=== PATIENT | male | born 1975 | race Caucasian/White ===

== ENCOUNTER 2016-06-27 14:08 | Day surgery (SDC) | payer MEDICAID ==
[2016-06-27] VITALS (15 sets, daily range): BP systolic 146–173; BP diastolic 72–107; PULSE 77–94; RESP 12–18; TEMP 97.8–99; O2SAT 94–100; Ht 188 cm; Wt 97.0 kg
[~2016-06-27] VITALS: Ht 188 cm; Wt 97.0 kg
[~2016-06-27 14:08] MED LIST: ACET-2723 PO; AMLO5TAB2 PO; DIPH25TA23 PO
--- OUTSIDE RECORDS SUMMARY | 2016-06-27 14:12 | XMS REPORT | Referral Summary ---
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 Role Phone Ivania Barber Primary Care Physician [phone] Encounter [facility] [id number] Date(s): 05/28/15 - 05/28/15 [facility] [address] [place], [place] [address] Discharge Diagnosis: Fixed drug eruption Discharge Diagnosis: Zheng's nevus of back Discharge Diagnosis: Nevus Discharge Diagnosis: History of squamous cell carcinoma of skin Discharge Diagnosis: Hypertrophic scar of skin Discharge Disposition: 01-Home or Self Care Attending Physician: Mark Jonas MD Admitting Physician: Mark Jonas MD Referring Physician: Gio Payne MD Vital Signs No data available for this section Problem List Condition Effective Dates Status Health Status Informant Abdominal Active discomfort(Confirmed ) Acute Active bronchitis(Confirmed ) Acute frontal Active sinusitis(Confirmed) Acute Active tonsillitis(Confirme d) Allergic rhinitis, Active seasonal(Confirmed) Foot pain(Confirmed) Active Hypertension(Confirm Active ed) Chronic knee Active pain(Confirmed) Syncope(Confirmed) Resolved Tobacco Active use(Confirmed) Abnormal WBC Active count(Confirmed) Allergies, Adverse Reactions, Alerts Substance Reaction Severity Status Bactrim Active sulfa drugs Active Medications albuterol 90 mcg/inh inhalation powder 2 puffs, Inhalation, q6hr, prn wheezing,cough, # 1 Each, 0 Refill(s), [facility] #[id number] Start Date: 01/09/15 Status: Ordered ibuprofen 600 mg oral tablet 600 mg 1 tabs, Oral, q8hr, # 30 tabs, 0 Refill(s) Start Date: 05/07/15 Status: Ordered ibuprofen 600 mg oral tablet 600 mg 1 tabs, Oral, QID, as needed for pain, # 40 tabs, 0 Refill(s) Start Date: 02/17/15 Status: Ordered lisinopril 10 mg oral tablet 10 mg 1 tabs, Oral, Daily, # 30 tabs, 3 Refill(s), Pharmacy: [facility] # [id number], 1 tabs Oral Daily Start Date: 12/15/14 Status: Ordered Lyrica 100 mg oral capsule 100 mg 1 caps, Oral, TID, 0 Refill(s) Start Date: 02/02/15 Status: Ordered mupirocin 2% topical ointment 1 kya, Topical, BID, To sores on skin as needed., # 22 g, 0 Refill(s), Pharmacy : [facility] #[id number] Start Date: 05/07/15 Status: Ordered OxyCONTIN 10 mg oral tablet, extended release 10 mg 1 tabs, Oral, q12hr, drom dr coronado, 0 Refill(s) Start Date: 01/09/15 Status: Ordered Percocet 5/325 oral tablet See Instructions, Takes 1 po bid, and 1/[address] Coronado pain management , 0 Refill(s) Start Date: 01/09/15 Status: Ordered traZODone 50 mg oral tablet 100 mg 2 tabs, Oral, Bedtime (once a day), # 30 tabs, 0 Refill(s) Start Date: 12/12/14 Status: Ordered Results No data available for this section Immunizations Vaccine Date Refusal Reason influenza virus vaccine, inactivated 02/13/14 pneumococcal 23-polyvalent vaccine 02/13/14 Procedures Procedure Date Related Diagnosis Body Site Colonoscopic polypectomy1 05/05/14 Left ACL and meniscal repair2, 3 Right knee hardware removal4 Right knee ORIF/ Tibial Plateau Fx.5 11 mixed tubular adenoma/hyperplastic polyp, 1 tubular adenoma, 2 hyperplastic polyps, random biopsies negative for collagenous colitis or IBD. Recommend fecal incontinence protocol for ongoing loose stools 2ACL and meniscal repair 2011 3Dr. Adal Calle [place] 43 years ago (). By Adal Raines 58-10 years ago. 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
--- OUTSIDE RECORDS SUMMARY | 2016-06-27 14:12 | XMS REPORT | Continuity of Care Document ---
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 Role Phone JENNY DEL ROSARIO MD Primary Care Physician [phone] Insurance Providers Payer Name Policy Number Subscriber Name Relationship [facility] Community Plan [id number] Tonya Hannon 17 Self Advance Directives Directive Response Recorded Date/Time Ordered Resuscitation Status Full Code 05/02/14 4:38pm Resuscitation Documents on File No 05/02/14 4:25pm Problems Medical Problems Problem Onset Date Status Musculoskeletal chest pain Unknown Active Chronic knee pain Unknown Active Musculoskeletal chest pain Unknown Active Medications Medication Dose Route Sig Days/Qty Instructions Order Date Discontinued Date Status Amlodipine Besylate 1 Tab PO DAILY 30 Qty 05/02/14 Active Diphenhydramine HCl 1 Tab PO NEEDED 05/02/14 Active Acetaminophen 1-2 Tab PO Every 6 Hours PRN PAIN 05/05/14 Active Social History Social History Problem Response Recorded Date/Time Chewing Tobacco Status No 05/02/2014 4:18pm Hx Substance Use No 05/02/2014 4:18pm Hx Alcohol Use No 05/02/2014 4:18pm Has the pt used tobacco in the last 12 months Yes 05/02/2014 4:18pm Tobacco Usage none 03/22/2014 11:39pm Query Response Start Date Stop Date Smoking Status Current every day smoker Hospital Discharge Instructions No hospital discharge instructions. Plan of Care No plan of care. Functional Status Query Response Date Recorded Physical Hygiene Self March 22, 2014 7:44pm Physical Hygiene Self March 22, 2014 7:44pm Allergies, Adverse Reactions, Alerts Allergen Type Severity Reaction Status Last Updated Sulfamethoxazole Allergy Unknown Active 03/22/14 Trimethoprim Allergy Unknown Active 03/22/14 Immunizations Name Given Type Hx Influenza Vaccination Y FALL 2013 Historical Hx Pneumococcal Vaccination 2013 Historical Hx Influenza Vaccination Y FALL 2013 Historical Vital Signs Acute Vital Signs Vital Response Date/Time Temperature (Fahrenheit) 97.3 deg F (96.8 - 99.1) Temperature (Calculated Celsius) 36.70335 degrees C (36.0 - 37.3) Temperature Source Temporal Pulse Rate (adult) 92 bpm (60 - 100) Respiratory Rate 16 breaths/min (10 - 20) O2 Sat by Pulse Oximetry 97 % (90 - 100) Oxygen Delivery Method Room Air Blood Pressure 149/97 mm Hg Blood Pressure Source Automatic Cuff Height 6 ft 2 in Weight 212 lb Body Mass Index 27.0 kg/m^2 Results Test Source Date Result Interp. Ref. Range Comments Alanine Aminotransferase (ALT/SGPT) March 22, 2014 8:10pm 45 U/L N 21 -72 Albumin March 22, 2014 8:10pm 4.2 G/DL N 3.5-5.0 Albumin/Globulin Ratio March 22, 2014 8:10pm 1.3 RATIO N 1.1-2.2 Alkaline Phosphatase March 22, 2014 8:10pm 79 U/L N 38-126 Anion Gap March 22, 2014 8:10pm 12 MEQ/L N 5-15 Aspartate Amino Transf (AST/SGOT) March 22, 2014 8:10pm 19 U/L N 17- 59 BUN/Creatinine Ratio March 22, 2014 8:10pm 11 RATIO N 6-26 Basophils # (Auto) March 22, 2014 8:10pm 0.1 T/MM3 N 0-0.2 Basophils (%) (Auto) March 22, 2014 8:10pm 0.6 % N 0-2 Blood Urea Nitrogen March 22, 2014 8:10pm 8.0 MG/DL L 9-20 C-Reactive Protein March 22, 2014 8:10pm 16.8 MG/L H 0-9 Calcium Level March 22, 2014 8:10pm 9.4 MG/DL N 8.4-10.2 Calculated Osmolality March 22, 2014 8:10pm 273 MOSM/KG N 261-280 Carbon Dioxide Level March 22, 2014 8:10pm 28 MEQ/L N 22-30 Chloride Level March 22, 2014 8:10pm 103 MEQ/L N 98-107 Creatinine March 22, 2014 8:10pm 0.7 MG/DL L 0.8-1.5 Eosinophils # (Auto) March 22, 2014 8:10pm 0.4 T/MM3 N 0-0.5 Eosinophils (%) (Auto) March 22, 2014 8:10pm 2.6 % N 0-4 Erythrocyte Sedimentation Rate March 22, 2014 8:10pm 8 MM/HR N 0-15 Globulin March 22, 2014 8:10pm 3.2 G/DL N 2.4-3.6 Glucose Level March 22, 2014 8:10pm 96 MG/DL N 75-110 Hematocrit March 22, 2014 8:10pm 43.4 % N 41-53 Hemoglobin March 22, 2014 8:10pm 14.6 GM/DL N 13.5-17.5 Lymphocytes # (Auto) March 22, 2014 8:10pm 2.5 T/MM3 N 1-4.8 Lymphocytes (%) (Auto) March 22, 2014 8:10pm 18.7 % L 23-45 Mean Corpuscular Hemoglobin March 22, 2014 8:10pm 30.9 UUG N 26-34 Mean Corpuscular Hemoglobin Concent March 22, 2014 8:10pm 33.6 GM/DL N 31-37 Mean Corpuscular Volume March 22, 2014 8:10pm 91.8 UM3 N 80-100 Mean Platelet Volume March 22, 2014 8:10pm 10.1 UM3 N 9.4-12.4 Monocytes # (Auto) March 22, 2014 8:10pm 1.1 T/MM3 H 0-0.8 Monocytes (%) (Auto) March 22, 2014 8:10pm 8.0 % N 0-9.0 Neutrophils # (Auto) March 22, 2014 8:10pm 9.5 T/MM3 H 1.8-7.7 Neutrophils (%) (Auto) March 22, 2014 8:10pm 69.9 % H 33-66 Platelet Count March 22, 2014 8:10pm 304 T/MM3 N 130-400 Potassium Level March 22, 2014 8:10pm 4.0 MEQ/L N 3.6-5 RDW Standard Deviation March 22, 2014 8:10pm 47.2 FL N 36.9-50.2 Rapid Plasma Reagin June 02, 2008 7:45pm Nonreactive - Red Blood Count March 22, 2014 8:10pm 4.73 M/MM3 N 4.50-5.90 Sodium Level March 22, 2014 8:10pm 143 MEQ/L N 134-144 Tests Not Done June 02, 2008 7:45pm Not done - Has specimen been collected/obtained? Y Total Bilirubin March 22, 2014 8:10pm 0.60 MG/DL N 0.20-1.30 Total Protein March 22, 2014 8:10pm 7.4 G/DL N 6.3-8.2 Troponin I March 22, 2014 8:10pm < 0.012 ng/ml 0-0.12 Urine Bilirubin June 02, 2008 7:45pm Negative - Has specimen been collected/obtained? Y Urine Blood June 02, 2008 7:45pm Negative - Has specimen been collected/obtained? Y Urine Collection Type June 02, 2008 7:45pm Voided - Has specimen been collected/obtained? Y Urine Color June 02, 2008 7:45pm Yellow - Has specimen been collected/obtained? Y Urine Glucose (UA) June 02, 2008 7:45pm Negative - Has specimen been collected/obtained? Y Urine Ketones June 02, 2008 7:45pm Negative - Has specimen been collected/obtained? Y Urine Leukocyte Esterase June 02, 2008 7:45pm Negative - Has specimen been collected/obtained? Y Urine Nitrite June 02, 2008 7:45pm Negative - Has specimen been collected/obtained? Y Urine Protein June 02, 2008 7:45pm Negative - Has specimen been collected/obtained? Y Urine Specific Pratt June 02, 2008 7:45pm 1.010 L - Has specimen been collected/obtained? Y Urine Turbidity June 02, 2008 7:45pm Clear - Has specimen been collected/obtained? Y Urine Urobilinogen June 02, 2008 7:45pm Normal EU/DL - Has specimen been collected/obtained? Y Urine pH June 02, 2008 7:45pm 7.0 - Has specimen been collected/ obtained? Y White Blood Count March 22, 2014 8:10pm 13.6 T/MM3 H 4.5-11.0 Chemistry Specimen Hemolysis March 22, 2014 8:10pm < 15 0-25 0-25 : No Hemolysis.26-70: Slight Hemolysis - can falsely elevate K and Urine Protein. 71-285: Moderate Hemolysis - can falsely elevate K, Troponin I, CA 19-9, PTH, CSF GLucose, and Urine Protein, and can falsely decrease Phenytoin. 286-999: Gross Hemolysis - can falsely elevate K, Troponin I, CA 19-9, PTH, CSF Glucose, and Urine Protine, and can falsely decrease Phenytoin. Recommend specimen recollection. HIV (1&2) Antibody Rapid June 02, 2008 7:45pm Negative - Turbidity March 22, 2014 8:10pm < 20 0-20 Glomerular Filtration Rate Calc March 22, 2014 8:10pm 126 - Immature Granulocyte # (Auto) March 22, 2014 8:10pm 0.03 T/MM3 N 0.00 -0.03 Immature Granulocyte % (Auto) March 22, 2014 8:10pm 0.2 % N 0.0-0.5 Icterus Index March 22, 2014 8:10pm < 2 0-7 Name: TONYA HANNON Unit #: [id number] : 1975 Sex: M Loc / Svc: ED DOS: 03/22/14 Signed Report #: [id number] DIAGNOSTIC IMAGING REPORT TYPE OF EXAM: CHEST, PA & LATERAL Dictated By: ANIKET BULL MD INDICATION: ITS.REASON: chest pain on inspiration left-sided CHEST 2-VIEWS UPRIGHT (PA & LAT): COMPARISON: None FINDINGS: The lungs are clear without evidence of focal abnormal airspace opacity. There is no pleural effusion or pneumothorax. The heart size, mediastinal contours and pulmonary vascularity are within normal limits. There is no significant skeletal abnormality. IMPRESSION: No acute cardiopulmonary disease. . Procedures Procedure Status Date Provider(s) ROUTINE VENIPUNCTURE completed 03/22/14 CHEST X-RAY 2VW FRONTAL&LATL completed 03/22/14 COMPREHEN METABOLIC PANEL completed 03/22/14 ASSAY OF TROPONIN QUANT completed 03/22/14 COMPLETE CBC W/AUTO DIFF WBC completed 03/22/14 RBC SED RATE NONAUTOMATED completed 03/22/14 C-REACTIVE PROTEIN completed 03/22/14 THER/PROPH/DIAG INJ SC/IM completed 03/22/14 EMERGENCY DEPT VISIT completed 03/22/14 [id number]"INJECTION, HYDROMORPHONE, UP TO 4 MG" completed 03/22/14 Colonoscopy with polypectomy and biopsy completed 05/05/14 CHANTELL ROSE MD, FACS, CWS Encounters Encounter Location Date/Time Departed Emergency Room [facility] 03/22/14 7:21pm
--- OUTSIDE RECORDS SUMMARY | 2016-06-27 14:12 | XMS REPORT | Referral Summary ---
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 Discharge Disposition: Home or Self Care Attending Physician: Johann Figueroa JR, MD, FAAFP Admitting Physician: Johann Figueroa JR, MD, FAAFP Referring Physician: Johann Figueroa JR, MD, FAAFP Vital Signs No data available for this section Problem List Condition Effective Dates Status Health Status Informant Abdominal Active discomfort(Confirmed ) Allergic rhinitis, Active seasonal(Confirmed) Foot pain(Confirmed) Active Hypertension(Confirm Active ed) Chronic knee Active pain(Confirmed) Morbid Active patient obesity(Confirmed) Syncope(Confirmed) Active Tobacco Active use(Confirmed) Allergies, Adverse Reactions, Alerts Substance Reaction Severity Status Bactrim Active sulfa drugs Active Medications amLODIPine 5 mg oral tablet 1 tabs, Oral, Daily, # 90 tabs, 0 Refill(s), Pharmacy: [id number], 1 tabs Oral Daily Start Date: 03/26/14 Status: Ordered Benadryl as needed for allergy symptoms, 0 Refill(s) Start Date: 01/14/14 Status: Ordered Tylenol Extra Strength 500 mg oral tablet 1 tabs, Oral, q4hr, as needed for pain, # 60 tabs, 0 Refill(s) Start Date: 04/29/14 Status: Ordered Results No data available for [...] Started at age: 15 Assessment and Plan No data available for this section
--- OUTSIDE RECORDS SUMMARY | 2016-06-27 14:12 | XMS REPORT | Referral Summary ---
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 Role Phone Ivania Barber Primary Care Physician [phone] Encounter [facility] Date(s): 12/12/14 - 12/12/14 [facility] [address] [place] [address] Discharge Disposition: 01-Home or Self Care Attending Physician: Scout Franklin MD Admitting Physician: Scout Franklin MD Vital Signs Most recent to 1 oldest [Reference Range]: Temperature Tympanic 36.6 degC [36.6-38.1 degC] (12/12/14 2:34 PM) Peripheral Pulse 82 bpm Rate [60-100 bpm] (12/12/14 2:34 PM) Respiratory Rate 16 br/min [14-20 br/min] (12/12/14 2:34 PM) Blood Pressure 120/84 mmHg [90-140/60-90 mmHg] (12/12/14 2:34 PM) SpO2 98 % (12/12/14 2:34 PM) Problem List Condition Effective Dates Status Health [...] wheezing,cough, # 1 Each, 0 Refill(s), Pharmacy: [facility] #[id number] Start Date: 01/09/15 Status: Ordered ibuprofen 600 mg oral tablet 600 mg 1 tabs, Oral, QID, as needed for pain, # 40 tabs, 0 Refill(s) Start Date: 02/17/15 Status: Ordered lisinopril 10 mg oral tablet 10 mg 1 tabs, Oral, Daily, # 30 tabs, 3 Refill(s), Pharmacy: [facility] # [id number], 1 tabs Oral Daily Start Date: 06/03/15 Status: Ordered Lyrica 100 mg oral capsule 100 mg 1 caps, Oral, TID, 0 Refill(s) Start Date: 02/02/15 Status: Ordered OxyCONTIN 10 mg oral tablet, [...] 0 Refill(s) Start Date: 12/12/14 Status: Ordered Zorvolex 35 mg oral capsule 35 mg 1 caps, Oral, Daily, as needed for pain, # 30 caps, 0 Refill(s), Pharmacy : [facility] #[id number], 1 caps Oral Daily,x30 days,PRN:as needed for pain Start Date: 06/09/15 Stop Date: 07/09/15 Status: Ordered Results Microbiology Reports TEST: Group A Strep Culture1 STATUS: Auth (Verified) BODY SITE: SOURCE: Throat COLLECTED DATE/TIME: 12/12/14 3:00 PM Group A Strep Culture No Group A Strep (Strep pyogenes) isolated Beta hemolytic Streptococcus, group G Large amount Organisms are predictably susceptible to Beta-lactam drugs. ORGANISM:Beta Hemolytic Streptococci, Group G INTERPRETIVE DATA 1Collect in Red Top BactiSwab. Done@[facility]. [facility] Immunizations Vaccine Date Refusal Reason influenza virus [...] 2ACL and meniscal repair 2011 3Dr. Adal Calle, [place] 43 years ago (). By Adal Raines 58-10 years ago. Done by Adal Harrell Social History Social History Type Response Smoking Status Current every day smoker; Type: Cigarettes; Tobacco use per day: 1 Pack; Number of years: 25; Started at age: 15 Assessment and Plan Extracted from: Title: Ambulatory Patient Education Author: Scout Franklin MD Date: 12/12 Family Medicine Acute Bronchitis Bronchitis is inflammation of the airways that extend from the windpipe into the lungs (bronchi). The inflammation often causes mucus to develop. This leads to a cough, which is the most common symptom of bronchitis. In acute bronchitis, the condition usually develops suddenly and goes away over time, usually in a couple weeks. Smoking, allergies, and asthma can make bronchitis worse. Repeated episodes of bronchitis may cause further lung problems. CAUSES Acute bronchitis is most often caused by the same virus that causes a cold. The virus can spread from person to person (contagious). SIGNS AND SYMPTOMS Cough. Fever. Coughing up mucus. Body aches. Chest congestion. Chills. Shortness of breath. Sore throat. DIAGNOSIS Acute bronchitis is usually diagnosed through a physical exam. Tests, such as chest X-rays, are sometimes done to rule out other conditions. TREATMENT Acute bronchitis usually goes away in a couple weeks. Often times, no medical treatment is necessary. Medicines are sometimes given for relief of fever or cough. Antibiotics are usually not needed but may be prescribed in certain situations. In some cases, an inhaler may be recommended to help reduce shortness of breath and control the cough. A cool mist vaporizer may also be used to help thin bronchial secretions and make it easier to clear the chest. HOME CARE INSTRUCTIONS Get plenty of rest. Drink enough fluids to keep your urine clear or pale yellow (unless you have a medical condition that requires fluid restriction). Increasing fluids may help thin your secretions and will prevent dehydration. Only take gvme-[id number] or prescription medicines as directed by your health care provider. Avoid smoking and secondhand smoke. Exposure to cigarette smoke or irritating chemicals will make bronchitis worse. If you are a smoker, consider using nicotine gum or skin patches to help control withdrawal symptoms. Quitting smoking will help your lungs heal faster. Reduce the chances of another bout of acute bronchitis by washing your hands frequently, avoiding people with cold symptoms, and trying not to touch your hands to your mouth, nose, or eyes. Follow up with your health care provider as directed. SEEK MEDICAL CARE IF: Your symptoms do not improve after 1 week of treatment. SEEK IMMEDIATE MEDICAL CARE IF: You develop an increased fever or chills. You have chest pain. You have severe shortness of breath. You have bloody sputum. You develop dehydration. You develop fainting. You develop repeated vomiting. You develop a severe headache. MAKE SURE YOU: Understand these instructions. Will watch your condition. Will get help right away if you are not doing well or get worse. Document Released: 05/11/2005 Document Revised: 12/04/2013 Document Reviewed: [facility] Patient Information 2015 [employer]. This information is not intended to replace advice given to you by your health care provider. Make sure you discuss any questions you have with your health care provider. No follow up information was provided. Extracted from: Title: sinusitis, tonsillitis, Author: Scout Franklin MD Date: 12/12/14 bronchitis, smoker Impression and Plan Diagnosis Acute bronchitis (ICD9 466.0, Working, Medical). Acute frontal sinusitis (ICD9 461.1, Working, Medical). Acute tonsillitis (ICD9 463, Working, Medical). Plan: 1) Take the Augmentin as directed. 2) Rest at home. 3) Followup as needed. 4) Stop smoking. Chantix starter pack given per patient request. I informed the patient about side effects of vivid dreams. I recommended that he discuss refills of the Chantix with Dr. Payne.. Orders Orders (Selected) Outpatient Orders InProcess (In Process) Group A Strep Culture: Ordered Office Visit Level 4 Est 15791: Completed Rapid Strep: Prescriptions Prescribed Chantix Starter Pack 0.5 mg-1 mg oral tablet: 1 tabs, Oral, BID, as directed on package labeling--dispense a starter pack, 53 tabs, 0 Refill(s) amoxicillin-clavulanate 875 mg-125 mg oral tablet: 875 mg, Oral, q12hr, for 20 days, 40 tabs, 0 Refill(s). Dx/Order Association Plan: Diagnosis: Acute bronchitis Comment: Ordered: Office Visit Level 4 Est 79088; 12/12/14 17:28:00 CDT, Acute tonsillitis | Acute frontal sinusitis | Acute bronchitis Diagnosis: Acute frontal sinusitis Comment: Ordered: Office Visit Level 4 Est [id number]; 12/12/14 17:28:00 CDT, Acute tonsillitis | Acute frontal sinusitis | Acute bronchitis Diagnosis: Acute tonsillitis Comment: Ordered: Office Visit Level 4 Est [id number]; 12/12/14 17:28:00 CDT, Acute tonsillitis | Acute frontal sinusitis | Acute bronchitis Other status: Rapid Strep; Micro Specimen, Routine collect, 15:09:00 CDT, Once, Stop date 12/12/14 15:09:00 CDT, Nurse Collect Non-Blood , Acute tonsillitis (Completed) Additional Orders: Comment: Ordered: Chantix Starter Pack 0.5 mg-1 mg oral tablet,1 tabs, Oral , BID, as directed on package labeling--dispense a starter pack, # 53 tabs, 0 Refill(s), Pharmacy: [facility] #[id number] Ordered: Percocet 10/325 oral tablet,1 tabs, Oral, Daily, as needed for pain, # 10 tabs, 0 Refill(s) Ordered: Percocet 10/325 oral tablet,0.5 tabs, Oral, BID, as needed for pain, # 10 tabs, 0 Refill(s) Ordered: Sudafed,2 tabs, Oral, q6hr, 0 Refill(s) Ordered: amoxicillin-clavulanate 875 mg-125 mg oral tablet,875 mg, Oral, q12hr, X 20 days, # 40 tabs, 0 Refill(s), Pharmacy: [facility] # [id number] End of Orders ."
--- OUTSIDE RECORDS SUMMARY | 2016-06-27 14:12 | XMS REPORT | Referral Summary ---
Author Author [facility] Organization [facility] Address Unknown Phone Unavailable Care Team Providers Care Component Inspector Name Role Phone Ivania Barber Primary Care Physician [phone] Encounter VC Date(s): 02/02/15 - 02/02/15 [facility] [address] [place] [address] Discharge Diagnosis: Right knee pain Discharge Diagnosis: Pain in joint of right foot Discharge Disposition: 01-Home or Self Care Attending Physician: Gio Payne MD Admitting Physician: Gio Payne MD Vital Signs Most recent to 1 oldest [Reference Range]: Temperature Tympanic 36.6 degC [36.6-38.1 degC] (02/02/15 8:13 AM) Peripheral Pulse 88 bpm Rate [60-100 bpm] (02/02/15 8:13 AM) Blood Pressure 152/102 mmHg [90-140/60-90 mmHg] *HI* (02/02/15 8:13 AM) Problem List Condition Effective Dates Status Health Status Informant Abdominal Active discomfort(Confirmed ) Acute Active bronchitis(Confirmed ) Acute frontal Active sinusitis(Confirmed) Acute Active tonsillitis(Confirme d) Allergic rhinitis, Active seasonal(Confirmed) Virk's disease of Active penis(Confirmed) Foot pain(Confirmed) Active Hypertension(Confirm Active ed) Chronic knee Active pain(Confirmed) Syncope(Confirmed) Resolved Tobacco Active use(Confirmed) Abnormal WBC Active count(Confirmed) Allergies, Adverse Reactions, Alerts Substance Reaction Severity Status Bactrim Active sulfa drugs Active Medications albuterol 90 mcg/inh inhalation powder 2 puffs, Inhalation, q6hr, prn wheezing,cough, # 1 Each, 0 Refill(s), Pharmacy: [facility] #[id number] Start Date: 01/09/15 Status: Ordered ibuprofen 600 mg oral tablet 600 mg 1 tabs, Oral, QID, as needed for pain, # 40 tabs, 0 Refill(s) Start Date: 02/17/15 Status: Ordered lisinopril 10 mg oral tablet 10 mg 1 tabs, Oral, Daily, # 30 tabs, 3 Refill(s), Pharmacy: [facility] # [id number], 1 tabs Oral Daily Start Date: 06/03/15 [...] # 30 caps, 0 Refill(s), Pharmacy : [facility] #[id number], 1 caps Oral Daily,x30 days,PRN:as needed for pain Start Date: 06/09/15 Stop Date: 07/09/15 Status: Ordered Results Hematology Most recent to 1 oldest [Reference Range]: WBC [4.8-10.8 15.0 10*3/uL 10*3/uL] *HI* (02/02/15 9:05 AM) RBC [4.60-6.20] 4.78 (02/02/15 9:05 AM) Hgb [14.0-18.0 15.0 gm/dL gm/dL] (02/02/15 9:05 AM) Hct [42.0-52.0 %] 44.1 % (02/02/15 9:05 AM) MCV [82.0-99.0 fL] 92.3 fL (02/02/15 9:05 AM) MCH [27.0-32.0 pg] 31.4 pg (02/02/15:05 AM) MCHC [32.0-36.0 34.0 gm/dL gm/dL] (02/02/15 9:05 AM) RDW [11.5-14.5 %] 14.3 % (02/02/15 9:05 AM) Platelet [150-400 299 10*3/uL 10*3/uL] (02/02/15:05 AM) MPV [8.8-14.8 fL] 10.9 fL (02/02/15:05 AM) Immature 0.2 % Granulocytes (02/02/15 AM) [0.0-1.0 %] Neutrophils [51-75 67 % %] (02/02/15:05 AM) Lymphocytes [20-46 21 % %] (02/02/15:05 AM) Monocytes [4-11 %] 10 % (02/02/15:05 AM) Eosinophils [0-4 %] 2 % (02/02/15:05 AM) Basophils [0-2 %] 0 % (02/02/15:05 AM) Neutro Absolute 10.08 10*3 [1.90-7.00 10*3] *HI* (02/02/15 9:05 AM) Lymph Absolute 3.11 10*3 [0.80-3.30 10*3] (02/02/15 9:05 AM) [place] Absolute 1.54 10*3 [0.30-1.00 10*3] *HI* (02/02/15 9:05 AM) Eos Absolute 0.24 10*3 [0.00-0.50 10*3] (02/02/15 9:05 AM) Baso Absolute 0.04 10*3 [0.00-0.20 10*3] (02/02/15 9:05 AM) Sed Rate [0-15] 3 (02/02/15:05 AM) Chemistry Most recent to 1 oldest [Reference Range]: Sodium Lvl [135-144 140 mEq/L mEq/L] (02/02/15 9:05 AM) Potassium Lvl 4.2 mEq/L [3.5-5.2 mEq/L] (02/02/15 9:05 AM) Chloride [99-111 104 mEq/L mEq/L] (02/02/15 9:05 AM) CO2 [23-31 mEq/L] 28 mEq/L (02/02/15 9:05 AM) AGAP [3-20] 8 (02/02/15 9:05 AM) BUN [9-21 mg/dL] 9 mg/dL (02/02/15 9:05 AM) Glucose Lvl [70-99 78 mg/dL mg/dL] (02/02/15 9:05 AM) Creatinine Lvl 0.74 mg/dL [0.72-1.25 mg/dL] (02/02/15 9:05 AM) eGFR [>60 mL/min] >60 mL/min 1 (02/02/15 9:05 AM) Calcium Lvl 9.5 mg/dL [8.9-10.5 mg/dL] (02/02/15 9:05 AM) Uric Acid [3.5-7.2 3.5 mg/dL mg/dL] (02/02/15 9:05 AM) 1Result Comment: Multiply eGFR results by 1.21 for race. Immunizations Vaccine Date Refusal Reason influenza virus [...] Extracted from: Title: Office Visit Note Author: Gio Payne MD Date: 02/02/15 Assessment/Plan Pain in joint of right foot Ordered: Basic Metabolic Panel Uric Acid Right knee pain Plan: I am checking you for gout. I am going to set you up to see Dr. Roman and Dr. Flanagan. Follow-up with Dr. Hernandez for your chronic pain problems. We discussed the need to find a new primary care doctor.
--- OUTSIDE RECORDS SUMMARY | 2016-06-27 14:12 | XMS REPORT | Referral Summary ---
Author Author [facility] Organization [facility] Address Unknown Phone Unavailable Care Team Providers Care Head Swamper Name Role Phone Rosana Payne Primary Care Physician [phone] Encounter VC Date(s): 10/08/14 - 10/08/14 [facility] [address] [place] [address] Discharge Disposition: 01-Home or Self Care Attending Physician: Gio Payne MD Admitting Physician: Gio Payne MD Vital Signs Most recent to 1 oldest [Reference Range]: Temperature Tympanic 36.5 degC [36.6-38.1 degC] *LOW* (10/08/14 8:15 AM) Blood Pressure 160/98 mmHg [90-140/60-90 mmHg] *HI* (10/08/14 8:15 AM) Problem List Condition Effective Dates Status Health Status Informant Abdominal Active discomfort(Confirmed ) Acute Active bronchitis(Confirmed ) Acute frontal Active sinusitis(Confirmed) Acute Active tonsillitis(Confirme d) Allergic rhinitis, Active seasonal(Confirmed) Foot pain(Confirmed) Active Hypertension(Confirm Active ed) Chronic knee Active pain(Confirmed) Syncope(Confirmed) Resolved Tobacco Active use(Confirmed) Allergies, Adverse Reactions, Alerts Substance Reaction Severity Status Bactrim Active sulfa drugs Active Medications albuterol 90 mcg/inh inhalation powder 2 puffs, Inhalation, q6hr, prn wheezing,cough, # 1 Each, 0 Refill(s), Pharmacy: [facility] #[id number] Start Date: 01/09/15 Status: Ordered ibuprofen 600 mg oral tablet 600 mg 1 tabs, Oral, QID, as needed for pain, # 40 tabs, 0 Refill(s) Start Date: 02/17/15 Status: Ordered lisinopril 10 mg oral tablet 10 mg 1 tabs, Oral, Daily, # 30 tabs, 3 Refill(s), Pharmacy: [facility] # [id number], 1 tabs Oral Daily Start Date: 12/15/14 Status: Ordered Lyrica 100 mg oral capsule 100 mg 1 caps, Oral, TID, 0 Refill(s) Start Date: 02/02/15 Status: Ordered OxyCONTIN 10 mg oral tablet, extended release 10 mg 1 tabs, Oral, q12hr, drom dr coronado, 0 Refill(s) Start Date: 01/09/15 Status: Ordered Percocet 5/325 oral tablet See Instructions, 1 time per day for break through pain. From dr coronado, 0 Refill(s ) Start Date: 01/09/15 Status: Ordered Sudafed 2 tabs, Oral, q6hr, 0 Refill(s) Start Date: 12/12/14 Status: Ordered traZODone 50 mg oral tablet 50 mg 1 tabs, Oral, Bedtime (once a day), # 30 tabs, 0 Refill(s) Start Date: 12/12/14 Status: Ordered Ventolin HFA 90 mcg/inh inhalation aerosol 2 puffs, Inhalation, QID, as needed for wheezing, # 1 Each, 0 Refill(s), Pharmacy: [facility] #[id number], 2 puffs Inhalation QID,PRN:as needed for wheezing Start Date: 01/09/15 Status: Ordered Results No data available for [...] Visit Note Author: Gio Payne MD Date: 10/08/14 Assessment/Plan Foot pain Hypertension Plan: Continue all current medications for now. We discussed being very careful about her weight. Follow-up in 6 months or sooner. Ordered: Comprehensive Metabolic Panel Lipid Panel
--- OUTSIDE RECORDS SUMMARY | 2016-06-27 14:12 | XMS REPORT | Referral Summary ---
Author Author [facility] Organization [facility] Address Unknown Phone Unavailable Care Team Providers Care Park Warden Name Role Phone Ivania Barber Primary Care Physician [phone] Encounter VC Date(s): 11/17/15 - 11/17/15 [facility] [address] [place] [address] Discharge Diagnosis: Peripheral edema Discharge Diagnosis: ED (erectile dysfunction) Discharge Disposition: 01-Home or Self Care Attending Physician: Yocasta Sanchez PA-C Admitting Physician: Yocasta Sanchez PA-C Vital Signs Most recent to 1 oldest [Reference Range]: Peripheral Pulse 82 bpm Rate [60-100 bpm] (11/17/15 4:20 PM) Blood Pressure 158/98 mmHg [90-140/60-90 mmHg] *HI* (11/17/15 4:20 PM) Problem List Condition Effective Dates Status [...] wheezing,cough, # 1 Each, 0 Refill(s), Pharmacy: [facility] #[id number] Start Date: 01/09/15 Status: Ordered ibuprofen 600 mg oral tablet 600 mg 1 tabs, Oral, QID, as needed for pain, # 40 tabs, 0 Refill(s) Start Date: 02/17/15 Status: Ordered lisinopril 10 mg oral tablet 10 mg 1 tabs, Oral, Daily, # 30 tabs, 3 Refill(s), Pharmacy: [facility] # [id number], 1 tabs Oral Daily Start Date: 06/03/15 Status: Ordered Lyrica 50 mg oral capsule 50 mg 1 caps, Oral, BID, 0 Refill(s) Start Date: 09/02/15 Status: Ordered Percocet 5/325 oral tablet See Instructions, Takes 1 po bid, and 1/[address] Torres pain management , 0 Refill(s) Start Date: 01/09/15 Status: Ordered Tessalon Perles 100 mg oral capsule See Instructions, 1-2 caps po q 8 hours prn cough, # 40 caps, 0 Refill(s), Pharmacy: [facility] #[id number], 1-2 caps po q 8 hours prn cough Start Date: 09/02/15 Status: Ordered traZODone 50 mg oral tablet 100 mg 2 tabs, Oral, Bedtime (once a day), # 30 tabs, 0 Refill(s) Start Date: 12/12/14 Status: Ordered Viagra 25 mg oral tablet 25 mg 1 tabs, Oral, Daily, as needed for erectile dysfunction, # 30 tabs, 0 Refill(s), Pharmacy: [facility] #[id number], Pt will have saving's card, 1 tabs Oral Daily,PRN:as needed for erectile dysfunction Start Date: 11/17/15 Status: Ordered Zorvolex 35 mg oral capsule 35 mg 1 caps, Oral, Daily, as needed for pain, # 30 caps, 0 Refill(s), Pharmacy : [facility] #[id number], 1 caps Oral Daily,x30 days,PRN:as needed for pain Start Date: 06/09/15 Stop Date: 07/09/15 Status: Ordered Results No data available for [...] ongoing loose stools 2ACL and meniscal repair 2012 3Dr. Adal Calle [place] 43 years ago (). By Adal Raines 58-10 years ago. Done by Adal Harrell Social History Social History Type Response Smoking Status Current every day smoker; Type: Cigarettes; Tobacco use per day: 1 Pack; Number of years: 25; Started at age: 15 Assessment and Plan Extracted from: Title: Ambulatory Patient Education Author: Yocasta Sanchez PA-C Date : 11/17/15 Family Medicine Erectile Dysfunction Erectile dysfunction is the inability to get or sustain a good enough erection to have sexual intercourse. Erectile dysfunction may involve: Inability to get an erection. Lack of enough hardness to allow penetration. Loss of the erection before sex is finished. Premature ejaculation. CAUSES Certain drugs, such as: Pain relievers. Antihistamines. Antidepressants. Blood pressure medicines. Water pills (diuretics). Ulcer medicines. Muscle relaxants. Illegal drugs. Excessive drinking. Psychological causes, such as: Anxiety. Depression. Sadness. Exhaustion. Performance fear. Stress. Physical causes, such as: Artery problems. This may include diabetes, smoking, liver disease, or atherosclerosis. High blood pressure. Hormonal problems, such as low testosterone. Obesity. Nerve problems. This may include back or pelvic injuries, diabetes mellitus, multiple sclerosis, or Parkinson disease. SYMPTOMS Inability to get an erection. Lack of enough hardness to allow penetration. Loss of the erection before sex is finished. Premature ejaculation. Normal erections at some times, but with frequent unsatisfactory episodes. Orgasms that are not satisfactory in sensation or frequency. Low sexual satisfaction in either partner because of erection problems. A curved penis occurring with erection. The curve may cause pain or may be too curved to allow for intercourse. Never having nighttime erections. DIAGNOSIS Your caregiver can often diagnose this condition by: Performing a physical exam to find other diseases or specific problems with the penis. Asking you detailed questions about the problem. Performing blood tests to check for diabetes mellitus or to measure hormone levels. Performing urine tests to find other underlying health conditions. Performing an ultrasound exam to check for scarring. Performing a test to check blood flow to the penis. Doing a sleep study at home to measure nighttime erections. TREATMENT You may be prescribed medicines by mouth. You may be given medicine injections into the penis. You may be prescribed a vacuum pump with a ring. Penile implant surgery may be performed. You may receive: An inflatable implant. A semirigid implant. Blood vessel surgery may be performed. HOME CARE INSTRUCTIONS If you are prescribed oral medicine, you should take the medicine as prescribed. Do not increase the dosage without first discussing it with your physician. If you are using self-injections, be careful to avoid any veins that are on the surface of the penis. Apply pressure to the injection site for 5 minutes. If you are using a vacuum pump, make sure you have read the instructions before using it. Discuss any questions with your physician before taking the pump home. SEEK MEDICAL CARE IF: You experience pain that is not responsive to the pain medicine you have been prescribed. You experience nausea or vomiting. SEEK IMMEDIATE MEDICAL CARE IF: When taking oral or injectable medications, you experience an erection that lasts longer than 4 hours. If your physician is unavailable, go to the nearest emergency room for evaluation. An erection that lasts much longer than 4 hours can result in permanent damage to your penis. You have pain that is severe. You develop redness, severe pain, or severe swelling of your penis. You have redness spreading up into your groin or lower abdomen. You are unable to pass your urine. This information is not intended to replace advice given to you by your health care provider. Make sure you discuss any questions you have with your health care provider. Document Released: 03/31/2001 Document Revised: 12/04/2013 Document Reviewed: [facility] Patient Information [address] [facility]. Surgery Peripheral Edema You have swelling in your legs (peripheral edema). This swelling is due to excess accumulation of salt and water in your body. Edema may be a sign of heart , kidney or liver disease, or a side effect of a medication. It may also be due to problems in the leg veins. Elevating your legs and using special support stockings may be very helpful, if the cause of the swelling is due to poor venous circulation. Avoid long periods of standing, whatever the cause. Treatment of edema depends on identifying the cause. Chips, pretzels, pickles and other salty foods should be avoided. Restricting salt in your diet is almost always needed. Water pills (diuretics) are often used to remove the excess salt and water from your body via urine. These medicines prevent the kidney from reabsorbing sodium. This increases urine flow. Diuretic treatment may also result in lowering of potassium levels in your body. Potassium supplements may be needed if you have to use diuretics daily. Daily weights can help you keep track of your progress in clearing your edema. You should call your caregiver for follow up care as recommended. SEEK IMMEDIATE MEDICAL CARE IF: You have increased swelling, pain, redness, or heat in your legs. You develop shortness of breath, especially when lying down. You develop chest or abdominal pain, weakness, or fainting. You have a fever. This information is not intended to replace advice given to you by your health care provider. Make sure you discuss any questions you have with your health care provider. Document Released: 05/11/2005 Document Revised: 06/25/2012 Document Reviewed: [facility] Patient Information 2016 [employer] No follow up information was provided. Extracted from: Title: Office Visit Note- Edema, ED Author: Yocasta Sanchez PA-C Date : 11/17/15 Assessment/Plan ED (erectile dysfunction) Pt was given samples of Viagra today. Pt was also given a savings card to use. Pt is advised to let us know if this is not working well for him, and he may need referral to urology. Ordered: Office Visit Level 3 Est 47906 Peripheral edema D/w pt aboutkeeping his legs elevated and wearing compressionsocks during the day and off at night. The pt wants an ultrasound done of the legs. Will orderVenous Duplex, and pt may schedule. Ordered: Office Visit Level 3 Est 65497 US LE Venous Duplex Bilateral Orders: sildenafil, 25 mg 1 tabs, Oral, Daily, as needed for erectile dysfunction, # 30 tabs, 0 Refill(s), Pharmacy: [facility] #[id number], Pt will have saving's card, 1 tabs Oral Daily,PRN:as needed for erectile dysfunction
--- OUTSIDE RECORDS SUMMARY | 2016-06-27 14:13 | XMS REPORT | Referral Summary ---
Author Author [facility] Organization [facility] Address Unknown Phone Unavailable Care Team Providers Care Delivery Table Operator Name Role Phone Rosana Payne Primary Care Physician [phone] Encounter VC Date(s): 10/08/14 - 10/08/14 [facility] [address] [place] [address] Discharge Disposition: 01-Home or Self Care Attending [...] wheezing,cough, # 1 Each, 0 Refill(s), Pharmacy: [facility] #[id number] Start Date: 01/09/15 Status: Ordered ibuprofen 600 mg oral tablet 600 mg 1 tabs, Oral, QID, as needed for pain, # 40 tabs, 0 Refill(s) Start Date: 02/17/15 Status: Ordered lisinopril 10 mg oral tablet 10 mg 1 tabs, Oral, Daily, # 30 tabs, 3 Refill(s), Pharmacy: [facility] # [id number], 1 tabs Oral Daily Start Date: 12/15/14 [...] wheezing, # 1 Each, 0 Refill(s), Pharmacy: [facility] #[id number], 2 puffs Inhalation QID,PRN:as needed for wheezing [...]
--- OUTSIDE RECORDS SUMMARY | 2016-06-27 14:13 | XMS REPORT | Referral Summary ---
Author Author [facility] Organization [facility] Address Unknown Phone Unavailable Care Team Providers Care Die Maker Stamping Name Role Phone Rosana Payne Primary Care Physician [phone] Encounter [facility] [id number] Date(s): 03/05/15 - 03/05/15 [facility] [address] [place], [place] [address] Discharge Diagnosis: Virk's disease Discharge Disposition: 01-Home or Self Care Attending [...] wheezing,cough, # 1 Each, 0 Refill(s), Pharmacy: [facility] #[id number] Start Date: 01/09/15 Status: Ordered ibuprofen 600 mg oral tablet 600 mg 1 tabs, Oral, QID, as needed for pain, # 40 tabs, 0 Refill(s) Start Date: 02/17/15 Status: Ordered lisinopril 10 mg oral tablet 10 mg 1 tabs, Oral, Daily, # 30 tabs, 3 Refill(s), Pharmacy: [facility] # [id number], 1 tabs Oral Daily Start Date: 12/15/14 [...] wheezing, # 1 Each, 0 Refill(s), Pharmacy: [facility] #[id number], 2 puffs Inhalation QID,PRN:as needed for wheezing [...] Visit Note Author: Mark Jonas MD Date: 03/05/15 Assessment/Plan 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
--- OUTSIDE RECORDS SUMMARY | 2016-06-27 14:13 | XMS REPORT | Referral Summary ---
Author Author [facility] Organization [facility] Address Unknown Phone Unavailable Care Team Providers Care Marine Diver Name Role Phone Rosana Payne Primary Care Physician [phone] Encounter VC Date(s): 10/08/14 - 10/08/14 [facility] [address] [place] [address] Discharge Disposition: 01-Home or Self Care Attending [...] wheezing,cough, # 1 Each, 0 Refill(s), Pharmacy: [facility] #[id number] Start Date: 01/09/15 Status: Ordered ibuprofen 600 mg oral tablet 600 mg 1 tabs, Oral, QID, as needed for pain, # 40 tabs, 0 Refill(s) Start Date: 02/17/15 Status: Ordered lisinopril 10 mg oral tablet 10 mg 1 tabs, Oral, Daily, # 30 tabs, 3 Refill(s), Pharmacy: [facility] # [id number], 1 tabs Oral Daily Start Date: 12/15/14 [...] wheezing, # 1 Each, 0 Refill(s), Pharmacy: [facility] #[id number], 2 puffs Inhalation QID,PRN:as needed for wheezing [...]
--- OUTSIDE RECORDS SUMMARY | 2016-06-27 14:13 | XMS REPORT | Referral Summary ---
Author Author [facility], [facility] Organization [facility] Address Unknown Phone Unavailable Care Team Providers Care Underwriting Intern Name Role Phone Rosana Payne Primary Care Physician [phone] Encounter [facility] [id number] Date(s): 09/01/14 - 09/01/14 [facility] Rhe[facility]ology [address] [place] [address] Discharge Diagnosis: Fatigue Discharge Diagnosis: Arthralgia Discharge Disposition: 01-Home or Self Care Attending Physician: Juana Lockhart MD Admitting Physician: Juana Lockhart MD Vital Signs Most recent to 1 oldest [Reference Range]: Peripheral Pulse 92 bpm Rate [60-100 bpm] (09/01/14 2:19 PM) Blood Pressure 149/90 mmHg [90-140/60-90 mmHg] *HI* (09/01/14 2:19 PM) Problem List Condition Effective Dates Status [...] wheezing,cough, # 1 Each, 0 Refill(s), Pharmacy: [facility] #[id number] Start Date: 01/09/15 Status: Ordered ibuprofen 600 mg oral tablet 600 mg 1 tabs, Oral, QID, as needed for pain, # 40 tabs, 0 Refill(s) Start Date: 02/17/15 Status: Ordered lisinopril 10 mg oral tablet 10 mg 1 tabs, Oral, Daily, # 30 tabs, 3 Refill(s), Pharmacy: [facility] # [id number], 1 tabs Oral Daily Start Date: 12/15/14 [...] day for break through pain. From dr croonado, 0 Refill(s ) Start Date: 01/09/15 Status: [...] wheezing, # 1 Each, 0 Refill(s), Pharmacy: [facility] #[id number], 2 puffs Inhalation QID,PRN:as needed for wheezing Start Date: 01/09/15 Status: Ordered Results Hematology Most recent to 1 oldest [Reference Range]: Sed Rate [0-15 10 mm/hr mm/hr] (09/01/14 3:02 PM) Chemistry Most recent to 1 oldest [Reference Range]: Hep A IgM Negative (09/01/14 3:02 PM) Hep Bs Ag Negative (09/01/14 3:02 PM) Hep C Ab Negative (09/01/14 3:02 PM) Hep B Core IgM Negative (09/01/14 3:02 PM) Cyclic Citrullinated <15.6 1 Peptide-[place] (09/01/14 3:02 PM) 1Result Comment: Reference Range: <20.0 (Negative) Test Performed by: [address] [address] Melt Supervisor: Dheeraj G. Morice, II, M.D., Ph.D. Immunizations Vaccine Date Refusal Reason influenza virus [...] Assessment and Plan Extracted from: Title: Office note Author: Juana Lockhart MD Date: 09/01/14 Assessment/Plan Arthralgia Much of his joint pain may be secondary to degenerative changes. He has had prior trauma andsurgery on his knees and unfortunately is predisposed to having degenerative changes in his knees. He had x-ray of his left knee last January which did show joint space narrowing. He also had a MRI of his right knee which is unremarkable for any evidence of inflammatory changes. I discussed with him also that the first MTP are also a common joint for degenerative change. Idid obtain x-rays of his hands and feet today. He does have degenerative changes in the feet. His hands were unremarkable. He has pittingon his fingernails but does not otherwise have findings that would be compatible with psoriasis which can be associated with psoriatic arthritis. He may be need to be seen when he is having active symptoms which I discussed with him today. I will check a CRP and also sedimentation rate. I also checked a rheumatoid factor and CCP given that there is a family history rheumatoid arthritis. Ordered: C-Reactive Protein (CRP) Cyclic Citrullinated Peptide Antibody-[place] Rheumatoid Factor Sedimentation Rate XR Foot Complete Bilateral XR Hand Complete Right Fatigue I will check a hepatitis panel. I will contact him once the lab work is available. Ordered: Hepatitis Panel
--- OUTSIDE RECORDS SUMMARY | 2016-06-27 14:13 | XMS REPORT | Referral Summary ---
Author Author [facility] , Dermatology Organization [facility] Address Unknown Phone Unavailable Care Team Providers Care Licensed Sales Assistant Name Role Phone Ivania Barber Primary Care Physician [phone] Encounter [facility] [id number] Date(s): 01/13/16 - 01/13/16 [facility] , Dermatology [address] [place], [place] [address] Discharge Diagnosis: Zheng's nevus Discharge Diagnosis: Freckles Discharge Diagnosis: History of squamous cell carcinoma of skin Discharge Diagnosis: Nevus Discharge Disposition: 01-Home or Self Care Attending Physician: Mark Jonas MD Admitting Physician: Mark Jonas MD Referring Physician: Tai Barber MD Vital Signs No data available for [...] wheezing,cough, # 1 Each, 0 Refill(s), Pharmacy: [facility] #[id number] Start Date: 01/09/15 Status: Ordered ibuprofen 600 mg oral tablet 600 mg 1 tabs, Oral, QID, as needed for pain, # 40 tabs, 0 Refill(s) Start Date: 02/17/15 Status: Ordered lisinopril 10 mg oral tablet 10 mg 1 tabs, Oral, Daily, # 30 tabs, 3 Refill(s), Pharmacy: [facility] # [id number], 1 tabs Oral Daily Start Date: 06/03/15 [...] cough, # 40 caps, 0 Refill(s), Pharmacy: [facility] #[id number], 1-2 caps po q 8 hours prn cough Start Date: 09/02/15 Status: Ordered traZODone 50 mg oral tablet 100 mg 2 tabs, Oral, Bedtime (once a day), # 30 tabs, 0 Refill(s) Start Date: 12/12/14 Status: Ordered Viagra 25 mg oral tablet 25 mg 1 tabs, Oral, Daily, as needed for erectile dysfunction, # 30 tabs, 0 Refill(s), Pharmacy: [facility] #[id number], Pt will have saving's card, 1 tabs Oral Daily,PRN:as needed for erectile dysfunction Start Date: 11/17/15 Status: Ordered Zorvolex 35 mg oral capsule 35 mg 1 caps, Oral, Daily, as needed for pain, # 30 caps, 0 Refill(s), Pharmacy : [facility] #[id number], 1 caps Oral Daily,x30 days,PRN:as needed for [...] Visit Note Author: Mark Jonas MD Date: 01/13/16 Assessment/Plan Zheng's nevus, Nevus Freckles History of squamous cell carcinoma of skin
--- OUTSIDE RECORDS SUMMARY | 2016-06-27 14:13 | XMS REPORT | Referral Summary ---
Author Organization Unknown Address Unknown Phone Unavailable Care Team Providers Care Marine Safety Officer Name Role Phone Amelia Figueroa JR Primary Care Physician [phone] Encounter [facility] [id number] Date(s): 05/07/14 - 05/07/14 [facility], [facility], Cardiology [address], [place] [address] Discharge Diagnosis: SYNCOPE AND COLLAPSE Discharge Disposition: Home or Self Care Attending Physician: Myrtle Sow MD Admitting Physician: Myrtle Sow MD Vital Signs No data available for [...] Daily, # 90 tabs, 0 Refill(s), Pharmacy: [id number], 1 tabs Oral Daily Start [...] Procedures Procedure Date Related Diagnosis Body Site Left ACL and meniscal repair1, 2 Right knee hardware removal3 Right knee ORIF/ Tibial Plateau Fx.4 1ACL and meniscal repair 2011 2[place]. [place] 33 years ago (). By Adal Raines 48-10 years ago. Done by Adal Harrell Social History Social History Type Response Smoking Status Current every day smoker; Type: Cigarettes; Tobacco use per day: 1 Pack; Number of years: 25; Started at age: 15 Assessment and Plan No data available for this section
--- OUTSIDE RECORDS SUMMARY | 2016-06-27 14:13 | XMS REPORT | Referral Summary ---
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 #[id number] Start Date: 01/09/15 Status: Ordered ibuprofen 600 mg oral tablet 600 mg 1 tabs, Oral, QID, as needed for pain, # 40 tabs, 0 Refill(s) Start Date: 02/17/15 Status: Ordered lisinopril 10 mg oral tablet 10 mg 1 tabs, Oral, Daily, # 30 tabs, 3 Refill(s), Pharmacy: [facility] # [id number], 1 tabs Oral Daily Start Date: 12/15/14 [...] wheezing, # 1 Each, 0 Refill(s), Pharmacy: [facility] #[id number], 2 puffs Inhalation QID,PRN:as needed for wheezing [...] Visit Note Author: Mark Jonas MD Date: 02/19/15 Assessment/Plan Squamous cell carcinoma in situ
--- OUTSIDE RECORDS SUMMARY | 2016-06-27 14:13 | XMS REPORT | Referral Summary ---
Author Author [facility] Family Medicine Organization [facility] Address Unknown Phone Unavailable Care Team Providers Care Medical Front Desk Specialist Name Role Phone Rosana Payne Primary Care Physician [phone] Encounter [facility] Date(s): 02/02/15 - 02/02/15 [facility] [address] [place] [address] Discharge Diagnosis: Right knee pain Discharge Diagnosis: [...] wheezing,cough, # 1 Each, 0 Refill(s), Pharmacy: [facility] #[id number] Start Date: 01/09/15 Status: Ordered lisinopril 10 mg oral tablet 10 mg 1 tabs, Oral, Daily, # 30 tabs, 3 Refill(s), Pharmacy: [facility] # [id number], 1 tabs Oral Daily Start Date: 12/15/14 Status: Ordered Lyrica 100 mg oral capsule 100 mg 1 caps, Oral, TID, 0 Refill(s) Start Date: 02/02/15 Status: Ordered Mucinex D tabs, Oral, BID, 0 Refill(s) Start Date: 01/09/15 Status: Ordered OxyCONTIN 10 mg oral tablet, extended release 10 mg 1 tabs, Oral, q12hr, drom dr coronado, 0 Refill(s) Start Date: 01/09/15 Status: Ordered Percocet 5/325 oral tablet See Instructions, 1 time per day for break through pain. From dr coronado, 0 Refill(s ) Start Date: 01/09/15 Status: Ordered predniSONE 1 mg oral tablet See Instructions, 15 days tapering, 0 Refill(s) Start Date: 02/02/15 Status: Ordered Sudafed 2 tabs, Oral, q6hr, 0 Refill(s) Start Date: 12/12/14 Status: Ordered traZODone 50 mg oral tablet 50 mg 1 tabs, Oral, Bedtime (once a day), # 30 tabs, 0 Refill(s) Start Date: 12/12/14 Status: Ordered Ventolin HFA 90 mcg/inh inhalation aerosol 2 puffs, Inhalation, QID, as needed for wheezing, # 1 Each, 0 Refill(s), Pharmacy: [facility] #[id number], 2 puffs Inhalation QID,PRN:as needed for wheezing Start Date: 01/09/15 Status: Ordered Results Hematology Most recent to 1 oldest [Reference Range]: WBC [4.8-10.8 15.0 10*3/uL 10*3/uL] *HI* (02/02/15 9:05 AM) RBC [4.60-6.20] 4.78 (02/02/15 9:05 AM) Hgb [14.0-18.0 15.0 gm/dL gm/dL] (02/02/15 9:05 AM) Hct [42.0-52.0 %] 44.1 % (02/02/15 9:05 AM) MCV [82.0-99.0 fL] 92.3 fL (02/02/15:05 AM) MCH [27.0-32.0 pg] 31.4 pg (02/02/15:05 AM) MCHC [32.0-36.0 34.0 gm/dL gm/dL] (02/02/15 9:05 AM) RDW [11.5-14.5 %] 14.3 % (02/02/15:05 AM) Platelet [150-400 299 10*3/uL 10*3/uL] (02/02/15 9:05 AM) MPV [8.8-14.8 fL] 10.9 fL (02/02/15:05 AM) Immature 0.2 % Granulocytes (02/02/1505 AM) [0.0-1.0 %] Neutrophils [51-75 67 % %] (02/02/15:05 AM) Lymphocytes [20-46 21 % %] (02/02/1505 AM) Monocytes [4-11 %] 10 % (02/02/15:05 AM) Eosinophils [0-4 %] 2 % (02/02/15:05 AM) Basophils [0-2 %] 0 % (02/02/15:05 AM) Neutro Absolute 10.08 10*3 [1.90-7.00 10*3] *HI* (02/02/15 9:05 AM) Lymph Absolute 3.11 10*3 [0.80-3.30 10*3] (02/02/15 9:05 AM) Jasper Absolute 1.54 10*3 [0.30-1.00 10*3] *HI* (02/02/15 [...]
--- OUTSIDE RECORDS SUMMARY | 2016-06-27 14:13 | XMS REPORT | Referral Summary ---
Author Author [facility], Family Medicine Organization [facility] Address Unknown Phone Unavailable Care Team Providers Care Financial Sales Advisor Name Role Phone Rosana Payne Primary Care Physician [phone] Encounter [facility] Date(s): 09/03/14 - 09/03/14 [facility] [address] [place] [address] Discharge Disposition: 01-Home or Self Care Attending Physician: Gio Payne MD Admitting Physician: Gio Payne MD Vital Signs Most recent to 1 oldest [Reference Range]: Temperature Tympanic 36.4 degC [36.6-38.1 degC] *LOW* (09/03/14 8:28 AM) Peripheral Pulse 116 bpm Rate [60-100 bpm] *HI* (09/03/14 8:28 AM) Blood Pressure 118/84 mmHg [90-140/60-90 mmHg] (09/03/14 8:28 AM) Problem List Condition Effective Dates Status [...] wheezing,cough, # 1 Each, 0 Refill(s), Pharmacy: [facility] #[id number] Start Date: 01/09/15 Status: Ordered ibuprofen 600 mg oral tablet 600 mg 1 tabs, Oral, QID, as needed for pain, # 40 tabs, 0 Refill(s) Start Date: 02/17/15 Status: Ordered lisinopril 10 mg oral tablet 10 mg 1 tabs, Oral, Daily, # 30 tabs, 3 Refill(s), Pharmacy: [facility] # [id number], 1 tabs Oral Daily Start Date: 12/15/14 [...] wheezing, # 1 Each, 0 Refill(s), Pharmacy: [facility] #[id number], 2 puffs Inhalation QID,PRN:as needed for wheezing [...] Visit Note Author: Gio Payne MD Date: 09/03/14 Assessment/Plan Foot pain Plan: Stop the amitriptyline. Start gabapentin 100 mg 3 times a day for 2 weeks then increase to 200 mg twice a day for one week then increase to 300 mg twice a day for one week and then follow-up at an appointment. Stay well- hydrated. Call or follow-up sooner if you're having any problems. Increased her Percocet to Percocet 10. One tablet twice a day. Ordered: Office Visit Level 3 Est 52402 Orders: gabapentin, 100 mg 1 caps, Oral, TID, # 90 caps, 6 Refill(s), Pharmacy : [id number], 1 caps Oral TID oxyCODONE-acetaminophen, 1 tabs, Oral, BID, X 30 days, # 60 tabs, 0 Refill(s)
--- OUTSIDE RECORDS SUMMARY | 2016-06-27 14:13 | XMS REPORT | Referral Summary ---
Author Author [facility] Organization [facility] Address Unknown Phone Unavailable Care Team Providers Care Filter Press Tender Name Role Phone Ivania Barber Primary Care Physician [phone] Encounter [facility] Date(s): 09/02/15 - 09/02/15 [facility] [address] [place] [address] [place] [address] Discharge Disposition: 01-Home or Self Care Attending Physician: Tai Barber MD Vital Signs Most recent to 1 oldest [Reference Range]: Blood Pressure 140/90 mmHg [90-140/60-90 mmHg] (09/02/15 3:30 PM) Problem List Condition Effective Dates Status [...] wheezing,cough, # 1 Each, 0 Refill(s), Pharmacy: [facility] #[id number] Start Date: 01/09/15 Status: Ordered ibuprofen 600 mg oral tablet 600 mg 1 tabs, Oral, QID, as needed for pain, # 40 tabs, 0 Refill(s) Start Date: 02/17/15 Status: Ordered lisinopril 10 mg oral tablet 10 mg 1 tabs, Oral, Daily, # 30 tabs, 3 Refill(s), [facility] # [id number], 1 tabs Oral Daily Start Date: 06/03/15 Status: Ordered Lyrica 50 mg oral capsule 50 mg 1 caps, Oral, BID, 0 Refill(s) Start Date: 09/02/15 Status: Ordered Percocet 5/325 oral tablet See Instructions, Takes 1 po bid, and 1/[address] Torres pain management , 0 Refill(s) Start Date: 01/09/15 Status: Ordered predniSONE 20 mg oral tablet 20 mg 1 tabs, Oral, Daily, X 5 days, # 5 tabs, 0 Refill(s), Pharmacy: [facility] #[id number], 1 tabs Oral Daily,x5 days Start Date: 09/02/15 Stop Date: 09/07/15 Status: Ordered Tessalon Perles 100 mg oral capsule See Instructions, 1-2 caps po q 8 hours prn cough, # 40 caps, 0 Refill(s), Pharmacy: [facility] #[id number], 1-2 caps po q 8 hours prn cough Start Date: 09/02/15 Status: Ordered traZODone 50 mg oral tablet 100 mg 2 tabs, Oral, Bedtime (once a day), # 30 tabs, 0 Refill(s) Start Date: 12/12/14 Status: Ordered Zorvolex 35 mg oral capsule 35 mg 1 caps, Oral, Daily, as needed for pain, # 30 caps, 0 Refill(s), Pharmacy : [facility] #[id number], 1 caps Oral Daily,x30 days,PRN:as needed for [...] Extracted from: Title: Ambulatory Patient Education Author: Tai Barber MD Date: Family Medicine Arthritis, Nonspecific Arthritis is inflammation of a joint. This usually means pain, redness, warmth or swelling are present. One or more joints may be involved. There are a number of types of arthritis. Your caregiver may not be able to tell what type of arthritis you have right away. CAUSES The most common cause of arthritis is the wear and tear on the joint ( osteoarthritis). This causes damage to the cartilage, which can break down over time. The knees, hips, back and neck are most often affected by this type of arthritis. Other types of arthritis and common causes of joint pain include: Sprains and other injuries near the joint. Sometimes minor sprains and injuries cause pain and swelling that develop hours later. Rheumatoid arthritis. This affects hands, feet and knees. It usually affects both sides of your body at the same time. It is often associated with chronic ailments, fever, weight loss and general weakness. Crystal arthritis. Gout and pseudo gout can cause occasional acute severe pain, redness and swelling in the foot, ankle, or knee. Infectious arthritis. Bacteria can get into a joint through a break in overlying skin. This can cause infection of the joint. Bacteria and viruses can also spread through the blood and affect your joints. Drug, infectious and allergy reactions. Sometimes joints can become mildly painful and slightly swollen with these types of illnesses. SYMPTOMS Pain is the main symptom. Your joint or joints can also be red, swollen and warm or hot to the touch. You may have a fever with certain types of arthritis, or even feel overall ill. The joint with arthritis will hurt with movement. Stiffness is present with some types of arthritis. DIAGNOSIS Your caregiver will suspect arthritis based on your description of your symptoms and on your exam. Testing may be needed to find the type of arthritis: Blood and sometimes urine tests. X-ray tests and sometimes CT or MRI scans. Removal of fluid from the joint (arthrocentesis) is done to check for bacteria, crystals or other causes. Your caregiver (or a specialist) will numb the area over the joint with a local anesthetic, and use a needle to remove joint fluid for examination. This procedure is only minimally uncomfortable. Even with these tests, your caregiver may not be able to tell what kind of arthritis you have. Consultation with a specialist (brand marketing specialist) may be helpful. TREATMENT Your caregiver will discuss with you treatment specific to your type of arthritis. If the specific type cannot be determined, then the following general recommendations may apply. Treatment of severe joint pain includes: Rest. Elevation. Anti-inflammatory medication (for example, ibuprofen) may be prescribed. Avoiding activities that cause increased pain. Only take eouo-mjg-eslcgvu or prescription medicines for pain and discomfort as recommended by your caregiver. Cold packs over an inflamed joint may be used for 10 to 15 minutes every hour. Hot packs sometimes feel better, but do not use overnight. Do not use hot packs if you are diabetic without your caregiver's permission. A cortisone shot into arthritic joints may help reduce pain and swelling. Any acute arthritis that gets worse over the next 1 to 2 days needs to be looked at to be sure there is no joint infection. Long-term arthritis treatment involves modifying activities and lifestyle to reduce joint stress jarring. This can include weight loss. Also, exercise is needed to nourish the joint cartilage and remove waste. This helps keep the muscles around the joint strong. HOME CARE INSTRUCTIONS Do not take aspirin to relieve pain if gout is suspected. This elevates uric acid levels. Only take qeyk-mml-mbtzmds or prescription medicines for pain, discomfort or fever as directed by your caregiver. Rest the joint as much as possible. If your joint is swollen, keep it elevated. Use crutches if the painful joint is in your leg. Drinking plenty of fluids may help for certain types of arthritis. Follow your caregiver's dietary instructions. Try low-impact exercise such as: Swimming. Water aerobics. Biking. Walking. Morning stiffness is often relieved by a warm shower. Put your joints through regular pdexh-uu-lkbehg. SEEK MEDICAL CARE IF: You do not feel better in 24 hours or are getting worse. You have side effects to medications, or are not getting better with treatment. SEEK IMMEDIATE MEDICAL CARE IF: You have a fever. You develop severe joint pain, swelling or redness. Many joints are involved and become painful and swollen. There is severe back pain and/or leg weakness. You have loss of bowel or bladder control. This information is not intended to replace advice given to you by your health care provider. Make sure you discuss any questions you have with your health care provider. Document Released: 05/11/2005 Document Revised: 01/20/2015 Document Reviewed: ExitCare Patient Information 2015 [employer] No follow up information was provided. Extracted from: Title: Office Visit Note Author: Tai Barber MD Date: 09/02/15 Assessment/Plan Abnormal WBC count Seeing Dr. Brown per him. No correspondence available. Acute sinusitis Zpack and prednisone 20mg po daily for five days was given. A work/school note was offered and deferred by the patient. Chronic knee pain Seeing pain management. Cough Tessilon perles 100mg 1-2 po tid prn. This is acute with his uri and not related to his bp meds. Tobacco use Smoking Cessation was discussed. The patient is welcome to f/u for therapy or medication for smoking cessation at any time that they are willing to quit. Orders: benzonatate, See Instructions, 1-2 caps po q 8 hours prn cough, # 40 caps, 0 Refill(s), Pharmacy: [facility] #[id number], 1-2 caps po q 8 hours prn cough predniSONE, 20 mg 1 tabs, Oral, Daily, X 5 days, # 5 tabs, 0 Refill(s), Pharmacy: [facility] #[id number], 1 tabs Oral Daily,x5 days
--- OUTSIDE RECORDS SUMMARY | 2016-06-27 14:13 | XMS REPORT | Referral Summary ---
Author Author [facility], Family Medicine Organization [facility] Address Unknown Phone Unavailable Care Team Providers Care Field Geologist Name Role Phone Rosana Payne Primary Care Physician [phone] Encounter [facility] Date(s): 10/08/14 - 10/08/14 [facility] [address] [place] [address] Discharge Disposition: 01-Home or [...] wheezing,cough, # 1 Each, 0 Refill(s), Pharmacy: [facility] #[id number] Start Date: 01/09/15 Status: Ordered ibuprofen 600 mg oral tablet 600 mg 1 tabs, Oral, QID, as needed for pain, # 40 tabs, 0 Refill(s) Start Date: 02/17/15 Status: Ordered lisinopril 10 mg oral tablet 10 mg 1 tabs, Oral, Daily, # 30 tabs, 3 Refill(s), Pharmacy: [facility] # [id number], 1 tabs Oral Daily Start Date: 12/15/14 [...] wheezing, # 1 Each, 0 Refill(s), Pharmacy: [facility] #[id number], 2 puffs Inhalation QID,PRN:as needed for wheezing [...]
--- OUTSIDE RECORDS SUMMARY | 2016-06-27 14:13 | XMS REPORT | Referral Summary ---
Author Author [facility] Organization [facility] Address Unknown Phone Unavailable Care Team Providers Care Transcription Specialist Name Role Phone Ivania Barber Primary Care Physician [phone] Encounter VC Date(s): 01/09/15 - 01/09/15 [facility], Family [address] [place] [id number] Discharge Disposition: 01-Home or Self Care Attending Physician: Tai Barber MD Admitting Physician: Tai Barber MD Vital Signs Most recent to 1 oldest [Reference Range]: Blood Pressure 180/120 mmHg [90-140/60-90 mmHg] *HI* (01/09/15 3:59 PM) Problem List Condition Effective Dates Status [...] wheezing,cough, # 1 Each, 0 Refill(s), Pharmacy: [facility] #[id number] Start Date: 01/09/15 Status: Ordered ibuprofen 600 mg oral tablet 600 mg 1 tabs, Oral, QID, as needed for pain, # 40 tabs, 0 Refill(s) Start Date: 02/17/15 Status: Ordered lisinopril 10 mg oral tablet 10 mg 1 tabs, Oral, Daily, # 30 tabs, 3 Refill(s), Pharmacy: [facility] # [id number], 1 tabs Oral Daily Start Date: 06/03/15 [...] # 30 caps, 0 Refill(s), Pharmacy : [facility] #[id number], 1 caps Oral Daily,x30 days,PRN:as needed for [...] Author: Tai Barber MD Date: Family Medicine Arthralgia Your caregiver has diagnosed you as suffering from an arthralgia. Arthralgia means there is pain in a joint. This can come from many reasons including: Bruising the joint which causes soreness (inflammation) in the joint. Wear and tear on the joints which occur as we grow older (osteoarthritis). Overusing the joint. Various forms of arthritis. Infections of the joint. Regardless of the cause of pain in your joint, most of these different pains respond to anti-inflammatory drugs and rest. The exception to this is when a joint is infected, and these cases are treated with antibiotics, if it is a bacterial infection. HOME CARE INSTRUCTIONS Rest the injured area for as long as directed by your caregiver. Then slowly start using the joint as directed by your caregiver and as the pain allows. Crutches as directed may be useful if the ankles, knees or hips are involved. If the knee was splinted or casted, continue use and care as directed. If an stretchy or elastic wrapping bandage has been applied today, it should be removed and re-applied every 3 to 4 hours. It should not be applied tightly, but firmly enough to keep swelling down. Watch toes and feet for swelling, bluish discoloration, coldness, numbness or excessive pain. If any of these problems (symptoms) occur, remove the joel bandage and re-apply more loosely. If these symptoms persist, contact your caregiver or return to this location. For the first 24 hours, keep the injured extremity elevated on pillows while lying down. Apply ice for 15-20 minutes to the sore joint every couple hours while awake for the first half day. Then 03-04 times per day for the first 48 hours. Put the ice in a plastic bag and place a towel between the bag of ice and your skin. Wear any splinting, casting, elastic bandage applications, or slings as instructed. Only take rszl-ael-cecgtat or prescription medicines for pain, discomfort, or fever as directed by your caregiver. Do not use aspirin immediately after the injury unless instructed by your physician. Aspirin can cause increased bleeding and bruising of the tissues. If you were given crutches, continue to use them as instructed and do not resume weight bearing on the sore joint until instructed. Persistent pain and inability to use the sore joint as directed for more than 2 to 3 days are warning signs indicating that you should see a caregiver for a follow-up visit as soon as possible. Initially, a hairline fracture (break in bone) may not be evident on X-rays. Persistent pain and swelling indicate that further evaluation, non-weight bearing or use of the joint (use of crutches or slings as instructed), or further X-rays are indicated. X-rays may sometimes not show a small fracture until a week or 10 days later. Make a follow-up appointment with your own caregiver or one to whom we have referred you. A radiologist (specialist in reading X-rays) may read your X-rays. Make sure you know how you are to obtain your X-ray results. Do not assume everything is normal if you do not hear from us. SEEK MEDICAL CARE IF: Bruising, swelling, or pain increases. SEEK IMMEDIATE MEDICAL CARE IF: Your fingers or toes are numb or blue. The pain is not responding to medications and continues to stay the same or get worse. The pain in your joint becomes severe. You develop a fever over 102 F (38.9 C). It becomes impossible to move or use the joint. MAKE SURE YOU: Understand these instructions. Will watch your condition. Will get help right away if you are not doing well or get worse. Document Released: 04/03/2006 Document Revised: 06/25/2012 Document Reviewed: [facility] Patient Information 2015 Pets are family too. This information is not intended to replace advice given to you by your health care provider. Make sure you discuss any questions you have with your health care provider. No follow up information was provided. Extracted from: Title: Office Visit Note Author: Tai Barber MD Date: 01/09/15 Assessment/Plan Acute bronchitis CXR pending. Likely more asthma bothered by his smoking. A work/school note was offered and deferred by the patient. Zpack and prednisone 20mg po daily for five days was given. Asthma See above. Ventolin mdi two puffs q6 prn.Has a nebulizer. Consider advair/breo if needed. Declined for now. Chronic knee pain This issue is stable and appropriate refills, lab, and f/u have been discussed. Gets his narcotics with Dr. GIRALDO. Cough See above. Ordered: XR Chest 2 Views Tobacco use Smoking Cessatin was discussed. The patient is welcome to f/u for therapy or medication for smoking cessation at any time that they are willing to quit. Wheezing See above.
--- OUTSIDE RECORDS SUMMARY | 2016-06-27 14:13 | XMS REPORT | Referral Summary ---
Author Author [facility] Organization [facility] Address Unknown Phone Unavailable Care Team Providers Care Chalk Cutter Name Role Phone Rosana Payne Primary Care Physician [phone] Encounter VC Date(s): 08/20/14 - 08/20/14 [facility] [address] [place] [id number] Discharge Disposition: 01-Home or Self Care Attending Physician: Gio Payne MD Admitting Physician: Gio Payne MD Vital Signs Most recent to 1 oldest [Reference Range]: Temperature Tympanic 36.7 degC [36.6-38.1 degC] (08/20/14 10:25 AM) Peripheral Pulse 115 bpm Rate [60-100 bpm] *HI* (08/20/14 10:25 AM) Respiratory Rate 16 br/min [14-20 br/min] (08/20/14 10:25 AM) Blood Pressure 116/82 mmHg [90-140/60-90 mmHg] (08/20/14 10:25 AM) SpO2 99 % (08/20/14 10:25 AM) Problem List Condition Effective Dates Status [...] # 1 Each, 0 Refill(s), Pharmacy: [facility] #[id number] Start Date: 01/09/15 Status: Ordered ibuprofen 600 mg oral tablet 600 mg 1 tabs, Oral, QID, as needed for pain, # 40 tabs, 0 Refill(s) Start Date: 02/17/15 Status: Ordered lisinopril 10 mg oral tablet 10 mg 1 tabs, Oral, Daily, # 30 tabs, 3 Refill(s), Pharmacy: [facility] # [id number], 1 tabs Oral Daily Start Date: 12/15/14 [...] # 1 Each, 0 Refill(s), Pharmacy: [facility] #[id number], 2 puffs Inhalation QID,PRN:as needed for wheezing [...] Author: Gio Payne MD Date: 09/03/14 Assessment/Plan Pain in both feet Plan: Start you on amitriptyline. 25 mg at nighttime. Follow-up weeks. All up you're having any problems. Orders: gabapentin, 100 mg 1 caps, Oral, TID, # 90 caps, 6 Refill(s), Pharmacy : [id number], 1 caps Oral TID oxyCODONE-acetaminophen, 1 tabs, Oral, BID, X 30 days, # 60 tabs, 0 Refill(s) Addendum This note was noted to be for August 20. I tried to reconstructed. For some reason by instead of it being on the it migrated to the . I did see the patient on the and I'm going to create another note from that day. Gio Wayne MD on September 03, 2014 17:28:50 CDT
--- OUTSIDE RECORDS SUMMARY | 2016-06-27 14:13 | XMS REPORT | Referral Summary ---
Author Author [facility] Organization [facility] Address Unknown Phone Unavailable Care Team Providers Care Road Crew Member Name Role Phone Ivania Barber Primary Care Physician [phone] Encounter VC Date(s): 07/02/15 - 07/02/15 [facility] [address] [place] [address] Discharge Disposition: 01-Home or Self Care Attending Physician: Tai Barber MD Admitting Physician: Tai aBrber MD Vital Signs Most recent to 1 oldest [Reference Range]: Temperature Tympanic 36.3 degC [36.6-38.1 degC] *LOW* (07/02/15 10:00 AM) Blood Pressure 130/80 mmHg [90-140/60-90 mmHg] (07/02/15 10:00 AM) Problem List Condition Effective Dates Status [...] wheezing,cough, # 1 Each, 0 Refill(s), Pharmacy: [facility] #[id number] Start Date: 01/09/15 Status: Ordered ibuprofen 600 mg oral tablet 600 mg 1 tabs, Oral, QID, as needed for pain, # 40 tabs, 0 Refill(s) Start Date: 02/17/15 Status: Ordered lisinopril 10 mg oral tablet 10 mg 1 tabs, Oral, Daily, # 30 tabs, 3 Refill(s), Pharmacy: [facility] # [id number], 1 tabs Oral Daily Start Date: 06/03/15 [...] # 30 caps, 0 Refill(s), Pharmacy : [facility] #[id number], 1 caps Oral Daily,x30 days,PRN:as needed for [...] Author: Tai Barber MD Date: Family Medicine Knee Pain Knee pain is a very common symptom and can have many causes. Knee pain often goes away when you follow your health care provider's instructions for relieving pain and discomfort at home. However, knee pain can develop into a condition that needs treatment. Some conditions may include: Arthritis caused by wear and tear (osteoarthritis). Arthritis caused by swelling and irritation (rheumatoid arthritis or gout ). A cyst or growth in your knee. An infection in your knee joint. An injury that will not heal. Damage, swelling, or irritation of the tissues that support your knee ( torn ligaments or tendinitis). If your knee pain continues, additional tests may be ordered to diagnose your condition. Tests may include X-rays or other imaging studies of your knee. You may also need to have fluid removed from your knee. Treatment for ongoing knee pain depends on the cause, but treatment may include: Medicines to relieve pain or swelling. Steroid injections in your knee. Physical therapy. Surgery. HOME CARE INSTRUCTIONS Take medicines only as directed by your health care provider. Rest your knee and keep it raised (elevated) while you are resting. Do not do things that cause or worsen pain. Avoid high-impact activities or exercises, such as running, jumping rope , or doing jumping jacks. Apply ice to the knee area: Put ice in a plastic bag. Place a towel between your skin and the bag. Leave the ice on for 20 minutes, 23 times a day. Ask your health care provider if you should wear an elastic knee support. Keep a pillow under your knee when you sleep. Lose weight if you are overweight. Extra weight can put pressure on your knee. Do not use any tobacco products, including cigarettes, chewing tobacco, or electronic cigarettes. If you need help quitting, ask your health care provider. Smoking may slow the healing of any bone and joint problems that you may have. SEEK MEDICAL CARE IF: Your knee pain continues, changes, or gets worse. You have a fever along with knee pain. Your knee sidra or locks up. Your knee becomes more swollen. SEEK IMMEDIATE MEDICAL CARE IF: Your knee joint feels hot to the touch. You have chest pain or trouble breathing. This information is not intended to replace advice given to you by your health care provider. Make sure you discuss any questions you have with your health care provider. Document Released: 01/29/2008 Document Revised: 01/20/2015 Document Reviewed: ExitCare Patient Information 2015 [employer] [facility]. No follow up information was provided. Extracted from: Title: Office Visit Note Author: Tai Barber MD Date: 07/02/15
--- OUTSIDE RECORDS SUMMARY | 2016-06-27 14:13 | XMS REPORT | Referral Summary ---
Author Author [facility] Organization [facility] Address Unknown Phone Unavailable Care Team Providers Care Drug Safety Data Management Specialist Name Role Phone Ivania Barber Primary Care Physician [phone] Encounter VC Date(s): 06/09/15 - 06/09/15 [facility] [address] [place] [address] [place] [id number] Discharge Disposition: 01-Home or Self Care Attending Physician: Tai Barber MD Admitting Physician: Tai Barber MD Vital Signs Most recent to 1 oldest [Reference Range]: Blood Pressure 120/90 mmHg [90-140/60-90 mmHg] (06/09/15 10:09 AM) Problem List Condition Effective Dates Status [...] wheezing,cough, # 1 Each, 0 Refill(s), Pharmacy: [facility] #[id number] Start Date: 01/09/15 Status: Ordered ibuprofen 600 mg oral tablet 600 mg 1 tabs, Oral, QID, as needed for pain, # 40 tabs, 0 Refill(s) Start Date: 02/17/15 Status: Ordered lisinopril 10 mg oral tablet 10 mg 1 tabs, Oral, Daily, # 30 tabs, 3 Refill(s), [facility] # [id number], 1 tabs Oral Daily Start Date: 06/03/15 [...] # 30 caps, 0 Refill(s), Pharmacy : [facility] #[id number], 1 caps Oral Daily,x30 days,PRN:as needed for [...] Author: Tai Barber MD Date: Family Medicine Back Exercises Back exercises help treat and prevent back injuries. The goal of back exercises is to increase the strength of your abdominal and back muscles and the flexibility of your back. These exercises should be started when you no longer have back pain. Back exercises include: Pelvic Tilt. Lie on your back with your knees bent. Tilt your pelvis until the lower part of your back is against the floor. Hold this position 5 to 10 sec and repeat 5 to 10 times. Knee to Chest. Pull first 1 knee up against your chest and hold for 20 to 30 seconds, repeat this with the other knee, and then both knees. This may be done with the other leg straight or bent, whichever feels better. Sit-Ups or Curl-Ups. Bend your knees 90 degrees. Start with tilting your pelvis, and do a partial, slow sit-up, lifting your trunk only 30 to 45 degrees off the floor. Take at least 2 to 3 seconds for each sit-up. Do not do sit-ups with your knees out straight. If partial sit-ups are difficult, simply do the above but with only tightening your abdominal muscles and holding it as directed. Hip-Lift. Lie on your back with your knees flexed 90 degrees. Push down with your feet and shoulders as you raise your hips a couple inches off the floor; hold for 10 seconds, repeat 5 to 10 times. Back arches. Lie on your stomach, propping yourself up on bent elbows. Slowly press on your hands, causing an arch in your low back. Repeat 3 to 5 times. Any initial stiffness and discomfort should lessen with repetition over time. Shoulder-Lifts. Lie face down with arms beside your body. Keep hips and torso pressed to floor as you slowly lift your head and shoulders off the floor. Do not overdo your exercises, especially in the beginning. Exercises may cause you some mild back discomfort which lasts for a few minutes; however, if the pain is more severe, or lasts for more than 15 minutes, do not continue exercises until you see your caregiver. Improvement with exercise therapy for back problems is slow. See your caregivers for assistance with developing a proper back exercise program. This information is not intended to replace advice given to you by your health care provider. Make sure you discuss any questions you have with your health care provider. Document Released: 05/11/2005 Document Revised: 06/25/2012 Document Reviewed: ExitCare Patient Information 2015 [employer] [facility]. No follow up information was provided. Extracted from: Title: Office Visit Note Author: Tai Barber MD Date: 06/09/15 Assessment/Plan Abnormal WBC count Seeing Dr. Brown and stable. Acute neck pain Xrays pending. Consider MRIif needed. Chronic back pain Xrays pending. ConsiderMRI if needed. Samples of the new medication were provided as a courtesy. Side effects were discussed and follow up was recommended. Trial of zorvolex 35mg po daily. Samples and script given. No other nsaids/stop motrin otc. A work/school note was offered and deferred by the patient. Chronic knee pain This issue was reviewed, appears stable, and current therapy continued except as mentioned. Appropriate lab was reviewed from the most recent appropriate entry and lab was ordered if needed in the cpoe/nursing orders, and follow up recommended generally in 90 days and no later then six months. Seeing Dr. Hernandez. Hip pain, right Xray pending. Hypertension This issue was reviewed, appears stable, and current therapy continued except as mentioned. Appropriate lab was reviewed from the most recent appropriate entry and lab was ordered if needed in the cpoe/nursing orders, and follow up recommended generally in 90 days and no later then six months. The patient had an elevated blood pressure reading and is to monitor their bp and call with a report if consistently > 140/90.
--- NOTE | 2016-06-27 14:14 | NUR ---
ROOM PATIENT AMBULATORY TO ROOM
--- OUTSIDE RECORDS SUMMARY | 2016-06-27 14:14 | XMS REPORT | Continuity of Care Document ---
Author Author [facility] Organization [facility] Address Unknown Phone Unavailable Care Team Providers Care Remarketing Rep Name Role Phone JENNIFER SAMUELS Primary Care Physician [phone] Insurance Providers Payer Name Policy Number Subscriber Name Relationship [facility] [employer] [id number] Tonya Hannon 17 Self Problems Medical Problems Problem Onset Date Status Musculoskeletal chest pain Unknown Active Chronic knee pain Unknown Active Musculoskeletal chest pain Unknown Active Medications Medication Dose Route Sig Days/Qty Instructions Order Date Discontinued Date Status Hydrocodone/Acetaminophen 1 Tab PO NEEDED 03/22/14 Active [Penicillin] 03/22/14 Active Oxycodone HCl/Acetaminophen 1-2 Tab PO Every 6 Hours For PAIN 30 Qty Active Social History Social History Problem Response Recorded Date/Time Hx Substance Use No 03/22/2014 7:44pm Hx Alcohol Use No 03/22/2014 7:44pm Tobacco Usage none 03/22/2014 11:39pm Query Response Start Date Stop Date Smoking Status Current every day smoker Hospital Discharge Instructions No hospital discharge instructions. Plan of Care No plan of care. Functional Status Query Response Date Recorded Physical Hygiene Self March 22, 2014 7:44pm Disabilities Visual March 22, 2014 7:44pm Devices Used Glasses March 22, 2014 7:44pm Dressing Self March 22, 2014 7:44pm Ambulation Self March 22, 2014 7:44pm Diet Self March 22, 2014 7:44pm Mental Status Alert March 22, 2014 8:50pm Disabilities Visual March 22, 2014 7:44pm Devices Used Glasses March 22, 2014 7:44pm Physical Hygiene Self March 22, 2014 7:44pm Dressing Self March 22, 2014 7:44pm Ambulation Self March 22, 2014 7:44pm Diet Self March 22, 2014 7:44pm Allergies, Adverse Reactions, Alerts Allergen Type Severity Reaction Status Last Updated Sulfamethoxazole Allergy Unknown Active 03/22/14 Trimethoprim Allergy Unknown Active 03/22/14 Immunizations No immunization records. Vital Signs Acute Vital Signs Vital Response Date/Time Temperature (Fahrenheit) 98.5 deg F (96.8 - 99.1) Temperature (Calculated Celsius) 36.29145 degrees C (36.0 - 37.3) Pulse Rate (adult) 83 bpm (60 - 100) Respiratory Rate 18 breaths/min (10 - 20) O2 Sat by Pulse Oximetry 99 % (90 - 100) Blood Pressure 141/89 mm Hg Height 6 ft 2 in Weight 205 lb Body Mass Index 26.0 kg/m^2 Results Test Source Date Result Interp. [...] Has specimen been collected/obtained? Y Urine Specific [place] June 02, 2008 7:45pm 1.010 L - [...] March 22, 2014 8:10pm < 2 0-7 Procedures No known history of procedures. Encounters Encounter Location Date/Time Departed Emergency Room [facility] 03/22/14 7:21pm Recent Diagnosis
--- OUTSIDE RECORDS SUMMARY | 2016-06-27 14:14 | XMS REPORT | Referral Summary ---
Author Author [facility] Organization [facility] Address Unknown Phone Unavailable Care Team Providers Care Rope Walker Name Role Phone Ivania Barber Primary Care Physician [phone] Encounter VC Date(s): 05/07/15 - 05/07/15 [facility] [address] [place] [id number] Discharge Disposition: 01-Home or Self Care Attending Physician: Tai Barber MD Admitting Physician: Tai Barber MD Vital Signs Most recent to 1 oldest [Reference Range]: Blood Pressure 180/100 mmHg [90-140/60-90 mmHg] *HI* (05/07/15 1:15 PM) Problem List Condition Effective Dates Status [...] wheezing,cough, # 1 Each, 0 Refill(s), Pharmacy: [facility] #[id number] Start Date: 01/09/15 Status: Ordered ibuprofen 600 mg oral tablet 600 mg 1 tabs, Oral, q8hr, # 30 tabs, 0 Refill(s) Start Date: 05/07/15 Status: Ordered ibuprofen 600 mg oral tablet 600 mg 1 tabs, Oral, QID, as needed for pain, # 40 tabs, 0 Refill(s) Start Date: 02/17/15 Status: Ordered Keflex 500 mg oral capsule 500 mg 1 caps, Oral, QID, X 10 days, # 40 caps, 0 Refill(s), Pharmacy: [facility] #[id number], 1 caps Oral QID,x10 days Start Date: 05/07/15 Stop Date: 05/17/15 Status: Ordered lisinopril 10 mg oral tablet 10 mg 1 tabs, Oral, Daily, # 30 tabs, 3 Refill(s), Pharmacy: [facility] # [id number], 1 tabs Oral Daily Start Date: 12/15/14 Status: Ordered Lyrica 100 mg oral capsule 100 mg 1 caps, Oral, TID, 0 Refill(s) Start Date: 02/02/15 Status: Ordered mupirocin 2% topical ointment 1 kya, Topical, BID, To sores on skin as needed., # 22 g, 0 Refill(s), Pharmacy : [facility] #[id number] Start Date: 05/07/15 Status: Ordered OxyCONTIN 10 [...] applications, or slings as instructed. Only take [id number]-[id number] or prescription medicines for pain, discomfort, or [...] Released: 04/03/2006 Document Revised: 06/25/2012 Document Reviewed: ExitCare Patient Information 2015 [employer] [facility]. This information is not intended to replace advice given to you by your health care provider. Make sure you discuss any questions you have with your health care provider. No follow up information was provided. Extracted from: Title: Office Visit Note Author: Tai Barber MD Date: 05/07/15 Assessment/Plan Abnormal WBC count Seeing Dr. Titus. Asthma This issue was reviewed, appears stable, and current therapy continued except as mentioned. Appropriate lab was reviewed from the most recent appropriate entry and lab was ordered if needed in the cpoe/nursing orders, and follow up recommended generally in 90 days and no later then six months. Cellulitis Keflex 500mg po qid forten days, bactroban ointment bid prn, consider checking for celiac disease when interested.RTC if notresolved. Not really desiringaggressive tx. Chronic foot pain To Dr. Eller for consult per request. Chronic knee pain Seeing Dr. Hernandez for this and chronic back pain. Hypertension Needs to resume lisinopril and monitor closely and call report if bp is >140/90. A work/school note was offered and deferred by the patient. Tobacco use Orders: cephalexin, 500 mg 1 caps, Oral, QID, X 10 days, # 40 caps, 0 Refill(s ), Pharmacy: [facility] #[id number], 1 caps Oral QID,x10 days mupirocin topical, 1 kya, Topical, BID, To sores on skin as needed., # 22 g, 0 Refill(s), Pharmacy: [facility] #[id number]
--- OUTSIDE RECORDS SUMMARY | 2016-06-27 14:14 | XMS REPORT | Referral Summary ---
Author Author [facility] Organization [facility] Address Unknown Phone Unavailable Care Team Providers Care Food Mixer Repairer Name Role Phone Rosana Payne Primary Care Physician [phone] Encounter VC Date(s): 02/17/15 - 02/17/15 [facility], [address] [place] [id number] Discharge Diagnosis: Suspicious nevus Discharge Disposition: 01-Home or Self Care Attending Physician: Gio Payne MD Admitting Physician: Gio Payne MD Vital Signs Most recent to 1 oldest [Reference Range]: Temperature Tympanic 36.7 degC [36.6-38.1 degC] (02/17/15 1:49 PM) Peripheral Pulse 92 bpm Rate [60-100 bpm] (02/17/15 1:49 PM) Respiratory Rate 16 br/min [14-20 br/min] (02/17/15 1:49 PM) Blood Pressure 144/104 mmHg [90-140/60-90 mmHg] *HI* (02/17/15 1:49 PM) Problem List Condition Effective Dates Status [...] wheezing,cough, # 1 Each, 0 Refill(s), Pharmacy: [facility] #[id number] Start Date: 01/09/15 Status: Ordered ibuprofen 600 mg oral tablet 600 mg 1 tabs, Oral, QID, as needed for pain, # 40 tabs, 0 Refill(s) Start Date: 02/17/15 Status: Ordered lisinopril 10 mg oral tablet 10 mg 1 tabs, Oral, Daily, # 30 tabs, 3 Refill(s), Pharmacy: [facility] # [id number], 1 tabs Oral Daily Start Date: 12/15/14 [...] wheezing, # 1 Each, 0 Refill(s), Pharmacy: [facility] #[id number], 2 puffs Inhalation QID,PRN:as needed for wheezing [...] Visit Note Author: Gio Payne MD Date: 02/17/15 Assessment/Plan Suspicious nevus Plan: I have done a punch biopsy today. I will call you with the results. We discussed wound care. Call if you're having any problems with bleeding or evidence of infection such as drainage pain and swelling or discharge. Overall this does not look like a sexually transmitted disease.
--- OUTSIDE RECORDS SUMMARY | 2016-06-27 14:14 | XMS REPORT | Continuity of Care Document ---
Author Author [facility] Organization [facility] Address Unknown Phone Unavailable Allergies Active Description Code Type Severity Reaction Onset Reported/Identified Relationship to Patient Clinical Status Yes sulfa drugs NKMA N/A N/A 01/14/2014 Yes sulfa drugs NKMA N/A N/A 01/14/2014 Yes Bactrim NKMA N/A N/A 02/07/2014 Yes Bactrim NKMA N/A N/A 02/07/2014 Medications Medication Packaging Start Date Stop Date Route Dosage Sig ibuprofen(ibuprofen) 01/14/2014 02/26/2014 PRN: as needed for pain diphenhydrAMINE(Benadryl) 01/14/2014 02/02/2015 PRN: as needed for allergy symptoms pseudoephedrine-guaiFENesin(Mucinex D) tabs 02/07/20142013 Oral tabs, Oral, BID ibuprofen-pseudoephedrine(Advil Cold Sinus) tabs 02/07/2014 02/26/2014 Oral tabs, Oral, q4hr multivitamin(multivitamin) 02/07/2014 03/21/2014 Daily pneumococcal 23-polyvalent vaccine(pneumococcal 23- polyvalent vaccine) 0.5 mL 02/13/2014 02/13/2014 IntraMuscular 0.5 mL, IntraMuscular , Once lisinopril-hydrochlorothiazide(lisinopril- hydrochlorothiazide 10 mg-12.5 mg oral tablet) 1 tabs 02/13/2014 03/11/2014 Oral 1 tabs, Oral, Daily, 30 tabs naproxen(naproxen 500 mg oral tablet) 1 tabs 02/26/20142013 Oral 500 mg 1 tabs, Oral, BID, Take twice a day with food. Once pain is completely resolved May take twice a day as needed., 60 tabs HYDROcodone-acetaminophen(Reading 5 mg-325 mg oral tablet) 1 tabs 03/11/2014 03/25/2014 Oral 1 tabs, Oral, q6hr, max 3 per day, 42 tabs, PRN: as needed for pain ciprofloxacin(Cipro 500 mg oral tablet) 1 tabs 03/12/201403/26 Oral 500 mg 1 tabs, Oral, q12hr, 28 tabs amoxicillin-clavulanate(Augmentin 875 mg-125 mg oral tablet ) 1 tabs 03/21/2014 04/04/2014 Oral 1 tabs, Oral, q12hr, 28 tabs oxyCODONE-acetaminophen(Percocet 5/325 oral tablet) 2 tabs 03/26/2014 04/29/2014 Oral 2 tabs, Oral, q6hr, prescribed at [facility], PRN: as needed for pain amLODIPine(amLODIPine 5 mg oral tablet) 1 tabs 03/26/201407/09 Oral 5 mg 1 tabs, Oral, Daily, 90 tabs acetaminophen(Tylenol Extra Strength 500 mg oral tablet) 1 tabs 04/29/2014 09/01/2014 Oral 500 mg 1 tabs, Oral, q4hr, 60 tabs, PRN: as needed for pain oxyCODONE-acetaminophen(Percocet 5/325 oral tablet) 1 tabs 07/09/2014 09/01/2014 Oral 1 tabs, Oral, TID ibuprofen(ibuprofen 400 mg oral tablet) 1 tabs 07/09/201409/01 Oral 400 mg 1 tabs, Oral, TID lisinopril(lisinopril 10 mg oral tablet) 1 tabs 07/09/2014 Oral 10 mg 10 mg=1 tabs, Oral, Daily, 30 tabs, 3 Refill(s) amitriptyline(amitriptyline 25 mg oral tablet) 1 tabs 08/20/2014 09/03/2014 Oral 25 mg 1 tabs, Oral, Bedtime (once a day), 30 tabs oxyCODONE-acetaminophen(Percocet 7.5/325 oral tablet) 09/01/2014 09/03/2014 See Instructions, 1 tab Oral q AM, 1/2 tab at noon and bedtime , 0 Refill(s) ibuprofen(ibuprofen 200 mg oral tablet) 09/01/20142014 See Instructions, 3 tabs Oral three times a day with percocet, 0 Refill(s ) gabapentin(gabapentin 100 mg oral capsule) 1 caps 09/03/2014 Oral 100 mg 100 mg=1 caps, Oral, TID, 90 caps, 6 Refill(s) oxyCODONE-acetaminophen(oxyCODONE-acetaminophen 10 mg-325 mg oral tablet) 1 tabs 09/03/2014 10/03/2014 Oral 1 tabs, Oral, BID, for 30 days, 60 tabs, 0 Refill(s) traZODone(traZODone 50 mg oral tablet) 2 tabs 12/12/20142016 Oral 100 mg 100 mg=2 tabs, Oral, Bedtime (once a day), 30 tabs, 0 Refill(s) pregabalin(Lyrica 75 mg oral capsule) 1 caps 12/12/20142014 Oral 75 mg 75 mg=1 caps, Oral, BID, 0 Refill(s) oxyCODONE-acetaminophen(Percocet 10/325 oral tablet) 0.5 tabs 12/12/2014 01/09/2015 Oral 0.5 tabs, Oral, BID, PRN: as needed for pain, 10 tabs , 0 Refill(s) pseudoephedrine(Sudafed) 2 tabs 12/12/2014 05/07/2015 Oral 2 tabs, Oral, q6hr, 0 Refill(s) amoxicillin-clavulanate(amoxicillin-clavulanate 875 mg-125 mg oral tablet) 201401/01/2015 Oral 875 mg 875 mg, Oral, q12hr, for 20 days, 40 tabs, 0 Refill(s) varenicline(Chantix Starter Pack 0.5 mg-1 mg oral tablet) 1 tabs 12/12/2014 01/09/2015 Oral 1 tabs, Oral, BID, as directed on package labeling --dispense a starter pack, 53 tabs, 0 Refill(s) oxyCODONE-acetaminophen(Percocet 5/325 oral tablet) 01/09/2015 See Instructions, Takes 1 po bid, and 1/[address] Coronado pain management, 0 Refill(s) oxyCODONE(OxyCONTIN 10 mg oral tablet, extended release) 1 tabs 01/09/2015 09/02/2015 Oral 10 mg 10 mg=1 tabs, Oral, q12hr, drom dr coronado, 0 Refill(s) DULoxetine(Cymbalta 60 mg oral delayed release capsule) 1 caps 01/09/2015 02/02/2015 Oral 60 mg 60 mg=1 caps, Oral, Daily, 0 Refill(s) pseudoephedrine-guaiFENesin(Mucinex D) tabs 01/09/20152014 Oral tabs, Oral, BID, 0 Refill(s) azithromycin(Zithromax Z-Lakhwinder 250 mg oral tablet) 1 packets 01/09/2015 01/09/2015 Oral 1 packets, Oral, Once, as directed on package labeling, 6 tabs, 0 Refill(s) predniSONE(predniSONE 20 mg oral tablet) 1 tabs 01/09/2015 Oral 20 mg 20 mg=1 tabs, Oral, Daily, for 5 days, 5 tabs, 0 Refill(s) albuterol(albuterol 90 mcg/inh inhalation powder) 2 puffs 01/09/2015 Inhalation 2 puffs, Inhalation, q6hr, PRN: prn wheezing,cough, 1 Each, 0 Refill(s) albuterol(Ventolin HFA 90 mcg/inh inhalation aerosol) 2 puffs 01/09/2015 05/07/2015 Inhalation 2 puffs, Inhalation, QID, PRN: as needed for wheezing, 1 Each, 0 Refill(s) predniSONE(predniSONE 1 mg oral tablet) 02/02/20152014 See Instructions, 15 days tapering, 0 Refill(s) pregabalin(Lyrica 100 mg oral capsule) 1 caps 02/02/20152015 Oral 100 mg 100 mg=1 caps, Oral, TID, 0 Refill(s) ibuprofen(ibuprofen 600 mg oral tablet) 1 tabs 02/17/2015 Oral 600 mg 600 mg=1 tabs, Oral, QID, PRN: as needed for pain, 40 tabs, 0 Refill(s) ibuprofen(ibuprofen 600 mg oral tablet) 1 tabs 05/07/201506/09 Oral 600 mg 600 mg=1 tabs, Oral, q8hr, 30 tabs, 0 Refill(s) cephalexin(Keflex 500 mg oral capsule) 1 caps 05/07/20152015 Oral 500 mg 500 mg=1 caps, Oral, QID, for 10 days, 40 caps, 0 Refill(s) mupirocin topical(mupirocin 2% topical ointment) 1 kya 05/07/2015 06/09/2015 Topical 1 kya, Topical, BID, To sores on skin as needed., 22 g, 0 Refill(s) diclofenac(Zorvolex 35 mg oral capsule) 1 caps 06/09/201505/27 Oral 35 mg 35 mg=1 caps, Oral, Daily, for 30 days, PRN: as needed for pain, 30 caps, 0 Refill(s) pregabalin(Lyrica 50 mg oral capsule) 1 caps 09/02/2015 Oral 50 mg 50 mg=1 caps, Oral, BID, 0 Refill(s) azithromycin(Zithromax Z-Lakhwinder 250 mg oral tablet) 1 packets 09/02/2015 09/02/2015 Oral 1 packets, Oral, Once, as directed on package labeling, 6 tabs, 0 Refill(s) predniSONE(predniSONE 20 mg oral tablet) 1 tabs 09/02/2015 Oral 20 mg 20 mg=1 tabs, Oral, Daily, for 5 days, 5 tabs, 0 Refill(s) benzonatate(Tessalon Perles 100 mg oral capsule) 09/02/2015 05/27/2016 See Instructions, 1-2 caps po q 8 hours prn cough, 40 caps, 0 Refill(s) sildenafil(Viagra 25 mg oral tablet) 1 tabs 11/17/2015 Oral 25 mg 25 mg=1 tabs, Oral, Daily, PRN: as needed for erectile dysfunction, 30 tabs , 0 Refill(s) meloxicam(Mobic 7.5 mg oral tablet) 1 tabs 05/27/2016 Oral 7.5 mg 7.5 mg=1 tabs, Oral, BID, PRN: foot pain, 60 tabs, 0 Refill(s) Problems Date Dx Coded Attending Type Code Diagnosis Diagnosed By 05/13/2014 Magi PEREZ, P Tonya Reason 780.2 SYNCOPE AND COLLAPSE Procedures Results Encounters ACCT No. Visit Date/Time Discharge Status Pt. Type Provider Facility Loc./Unit Complaint [id number] 05/12/2014 08:09:00 2014 18:00:00 DIS Outpatient Myrtle Sow MD [facility] [id number] 05/28/2016 05:16:48 Document Registration [id number] 11/18/2015 05:16:36 Document Registration [id number] 09/03/2015 05:17:25 Document Registration [id number] 06/10/2015 05:18:07 Document Registration [id number] 05/08/2015 05:17:02 Document Registration [id number] 02/18/2015 05:16:45 Document Registration [id number] 02/04/2015 14:29:18 Document Registration [id number] 02/04/2015 14:18:15 Document Registration [id number] 02/04/2015 14:08:07 Document Registration [id number] 02/04/2015 13:53:47 Document Registration [id number] 02/04/2015 13:46:15 Document Registration [id number] 02/04/2015 13:38:36 Document Registration [id number] 02/04/2015 12:39:18 Document Registration [id number] 02/04/2015 12:31:16 Document Registration [id number] 02/04/2015 12:24:00 Document Registration [id number] 02/04/2015 12:17:21 Document Registration [id number] 02/04/2015 11:43:41 Document Registration [id number] 02/04/2015 10:57:25 Document Registration [id number] 02/04/2015 10:41:25 Document Registration [id number] 02/04/2015 10:33:51 Document Registration [id number] 02/04/2015 10:28:21 Document Registration [id number] 02/04/2015 10:23:35 Document Registration [id number] 02/04/2015 10:12:52 Document Registration
--- OUTSIDE RECORDS SUMMARY | 2016-06-27 14:14 | XMS REPORT | Referral Summary ---
Author Author [facility] Family Medicine Organization [facility] Address Unknown Phone Unavailable Care Team Providers Care Merchandising Specialist Name Role Phone Ivania Barber Primary Care Physician [phone] Encounter VC Date(s): 05/27/16 - 05/27/16 [facility] [address] [place] [address] Discharge Diagnosis: Abnormal WBC count Discharge Diagnosis: Chronic knee pain Discharge Diagnosis: Tobacco use Discharge Diagnosis: Hypertension Discharge Diagnosis: Foot pain Discharge Disposition: 01-Home or Self Care Attending Physician: Tai Barber MD Admitting Physician: Tai Barber MD Vital Signs Most recent to 1 oldest [Reference Range]: Blood Pressure 140/90 mmHg [90-140/60-90 mmHg] (05/27/16 3:34 PM) Problem List Condition Effective Dates Status [...] wheezing,cough, # 1 Each, 0 Refill(s), Pharmacy: [facility] #[id number] Start Date: 01/09/15 Status: Ordered ibuprofen 600 mg oral tablet 600 mg 1 tabs, Oral, QID, as needed for pain, # 40 tabs, 0 Refill(s) Start Date: 02/17/15 Status: Ordered Lyrica 50 mg oral capsule 50 mg 1 caps, Oral, BID, 0 Refill(s) Start Date: 09/02/15 Status: Ordered Mobic 7.5 mg oral tablet 7.5 mg 1 tabs, Oral, BID, foot pain, # 60 tabs, 0 Refill(s), Pharmacy: [facility] #[id number], 1 tabs Oral BID,PRN:foot pain Start Date: 05/27/16 Status: Ordered Percocet 5/325 oral tablet See Instructions, Takes 1 po bid, and 1/[address] Torres pain management , 0 Refill(s) Start Date: 01/09/15 Status: Ordered Viagra 25 mg oral tablet 25 mg 1 tabs, Oral, Daily, as needed for erectile dysfunction, # 30 tabs, 0 Refill(s), Pharmacy: [facility] #[id number], Pt will have saving's card, 1 tabs Oral Daily,PRN:as needed for erectile dysfunction Start Date: 11/17/15 Status: Ordered Results No data available for this section Immunizations Given and Recorded Vaccine Date Status Refusal Reason influenza virus vaccine, inactivated 02/13/14 Recorded pneumococcal 23-polyvalent vaccine 02/13/14 Given Procedures Procedure Date Related Diagnosis Body Site Colonoscopic polypectomy1 05/05/14 Left ACL and meniscal repair2, 3 Right knee hardware removal4 Right knee ORIF/ Tibial Plateau Fx.5 11 mixed tubular adenoma/hyperplastic polyp, 1 tubular adenoma, 2 hyperplastic polyps, random biopsies negative for collagenous colitis or IBD. Recommend fecal incontinence protocol for ongoing loose stools 2ACL and meniscal repair 2011 3Dr. Adal [place]le, [place] 43 years ago (). By Adal Raines 58-10 years ago. Done by Adal Harrell Social History Social History Type Response Smoking Status Current every day smoker; Type: Cigarettes; Tobacco use per day: 1 Pack; Number of years: 25; Started at age: 15 Assessment and Plan Extracted from: Title: Ambulatory Patient Education Author: Tai Barber MD Date: 01/31 Family Medicine Joint Pain Joint pain, which is also called arthralgia, can be caused by many things. Joint pain often goes away when you follow your health care provider's instructions for relieving pain at home. However, joint pain can also be caused by conditions that require further treatment. Common causes of joint pain include: Bruising in the area of the joint. Overuse of the joint. Wear and tear on the joints that occur with aging (osteoarthritis). Various other forms of arthritis. A buildup of a crystal form of uric acid in the joint (gout). Infections of the joint (septic arthritis) or of the bone (osteomyelitis) . Your health care provider may recommend medicine to help with the pain. If your joint pain continues, additional tests may be needed to diagnose your condition. HOME CARE INSTRUCTIONS Watch your condition for any changes. Follow these instructions as directed to lessen the pain that you are feeling. Take medicines only as directed by your health care provider. Rest the affected area for as long as your health care provider says that you should. If directed to do so, raise the painful joint above the level of your heart while you are sitting or lying down. Do not do things that cause or worsen pain. If directed, apply ice to the painful area: Put ice in a plastic bag. Place a towel between your skin and the bag. Leave the ice on for 20 minutes, 23 times per day. Wear an elastic bandage, splint, or sling as directed by your health care provider. Loosen the elastic bandage or splint if your fingers or toes become numb and tingle, or if they turn cold and blue. Begin exercising or stretching the affected area as directed by your health care provider. Ask your health care provider what types of exercise are safe for you. Keep all follow-up visits as directed by your health care provider. This is important. SEEK MEDICAL CARE IF: Your pain increases, and medicine does not help. Your joint pain does not improve within 3 days. You have increased bruising or swelling. You have a fever. You lose 10 lb (4.5 kg) or more without trying. SEEK IMMEDIATE MEDICAL CARE IF: You are not able to move the joint. Your fingers or toes become numb or they turn cold and blue. This information is not intended to replace advice given to you by your health care provider. Make sure you discuss any questions you have with your health care provider. Document Released: 04/03/2006 Document Revised: 04/24/2015 Document Reviewed: [email or web address] Interactive Patient Education 2016 [email or web address] No follow up information was provided. Extracted from: Title: Office Visit Note Author: Tai Barber MD Date: 05/27/16 Assessment/Plan Abnormal WBC count This issue was reviewed, appears stable, and current therapy continued except as mentioned. Appropriate lab was reviewed from the most recent appropriate entry and lab was ordered if needed in the cpoe/nursing orders, and follow up recommended generally in 90 days and no later then six months. Seeing Dr. Brown. No findings to date and felt to be from his excessive smoking. IMPRESSION: 1. No demonstrated lesion. [1] IMPRESSION: 1. No significant chest x-ray abnormality is identified. [2] Chronic knee pain This issue was reviewed, appears stable, and current therapy continued except as mentioned. Appropriate lab was reviewed from the most recent appropriate entry and lab was ordered if needed in the cpoe/nursing orders, and follow up recommended generally in 90 days and no later then six months. IMPRESSION: Mild lumbar spine degenerative disease and mild left curvature of the thoracolumbar spine. [3] Foot pain Hand outs given. Trial of mobic 7.5mg po bid prn. No otc nsaids. To Dr. Ellre for podiatry evaluations. Already tried otc shoe inserts. IMPRESSION: 1. 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 2. Unremarkable-appearing examination of the left foot. [4] Hypertension We discussed several options for treatment for this condition. The patient declined any changes or other treatments at this time. The patient reports their blood pressure has been stable at home and is not having any significant or related problems. There has been no chest pain, chest pressure, soa/catherine. The patient had an elevated blood pressure reading and is to monitor their bp and call with a report if consistently > 140/90. Tobacco use Smoking Cessation was discussed. The patient is welcome to f/u for therapy or medication for smoking cessation at any time that they are willing to quit. A work/school note was offered and deferred by the patient. TREATMENT: 1. I discussed the sunburn freckles, Zheng's nevus,pigmented nevus, and treatment with the patient. 2. Because all of these lesions appear normaland are asymptomatic at this timeno further treatment is required 3. Return in one year or when necessary [5] Assessment/Plan Zheng's nevus, Nevus Freckles History of squamous cell carcinoma of skin [6]
--- OUTSIDE RECORDS SUMMARY | 2016-06-27 14:14 | XMS REPORT | Referral Summary ---
Author Organization Unknown Address Unknown Phone Unavailable Care Team Providers Care Combat Engineer Name Role Phone Amelia Figueroa JR Primary Care Physician [phone] Encounter [facility] [id number] Date(s): 04/29/14 - 04/29/14 [facility], Trisha, Cardiology [address] [place], [place] [address] Discharge Diagnosis: Hypertension Discharge Diagnosis: Syncope Discharge Disposition: Home or Self Care Attending Physician: Myrtle Sow MD Admitting Physician: Myrtle Sow MD Referring Physician: Johann Figueroa JR, MD, FAAFP Vital Signs Most recent to 1 oldest [Reference Range]: Peripheral Pulse 84 bpm Rate [60-100 bpm] (04/29/14 8:45 AM) Blood Pressure 124/92 mmHg [90-140/60-90 mmHg] (04/29/14 8:45 AM) Problem List Condition Effective Dates Status [...] Daily, # 90 tabs, 0 Refill(s), Pharmacy: [id number], 1 tabs Oral Daily Start [...] 1ACL and meniscal repair 2011 2Dr. Adal Calle, [place] 33 years ago (). By Adal Raines 48-10 years ago. Done by Adal Harrell Social History Social History Type Response Smoking Status Current every day smoker; Type: Cigarettes; Tobacco use per day: 1 Pack; Number of years: 25; Started at age: 15 Assessment and Plan No data available for this section
[2016-06-27] MEDS ORDERED: TRAZ-170 PO (14:38)
[2016-06-27] MEDS ORDERED: OXYC-533 PO (14:40)
[2016-06-27] MEDS ORDERED: PREG150C PO (14:40)
[2016-06-27] MEDS ORDERED: [UNRECOGNIZED DRUG - OTHER] PO (14:43)
[2016-06-27] MEDS ORDERED: LOPE2TAB8 PO (14:43)
[2016-06-27] MEDS ORDERED: MELO-273 PO (14:43)
[2016-06-27] MEDS ORDERED: NORMAL SALINE 1,000 ML IV ONE (14:45)
[2016-06-27] MEDS ORDERED: ONDANSETRON 4mg/2ml INJECTION IV ONE (14:45)
[2016-06-27] MEDS ORDERED: MORPHINE SULFATE 4 MG SYRINGE IV ONE (14:45)
[2016-06-27] MEDS ORDERED: LISI10TA7 PO (14:45)
--- NOTE | 2016-06-27 14:45 | ERPDOC ---
Departure Disposition Decision Date: Jun 27, 2016 Disposition Decision Time: 17:05 (TOYA DE JESUS APRN) Disposition: 02 TO OBS [facility] [place] Impression (TOYA DE JESUS APRN) Impression: Primary Impression: Acute appendicitis Acute appendicitis type: unspecified acute appendicitis type Qualified Codes : K35.80 - Unspecified acute appendicitis Severity: Moderate (TOYA DE JESUS APRN) Condition: Stable Seen By: Mid-level only (TOYA DE JESUS APRN) Referrals: JENNY DEL ROSARIO MD (PCP) Problems/Meds/Labs Reviewed?: Yes Medications reviewed and manag: Yes (TOYA DE JESUS APRN) Follow up care ordered?: Yes Mental Status: Alert (TOYA DE JESUS APRN) Scripts Polyethylene Glycol 3350 (Miralax) 17 Gm Powd.pack 1 PACKET PO DAILY Y for CONSTIPATION, #30 PACKET 3 Refills Prov: DIANNA SMITH APRN, S 06/28/16 Oxycodone HCl/Acetaminophen (Percocet 10-325 mg Tablet) 10-325 Tablet 1 TAB PO Q4-6H for PAIN, #30 TAB Prov: DIANNA SMITH APRN, S 06/28/16 HPI - Abdominal Pain General Chief Complaint: Abdominal Pain Stated Complaint: RIGHT SIDE SEVERE PAIN, BLOODY STOOL Time Seen by Provider: 14:36 Source: patient History/Exam Limitations: no limitations (TOYA DE JESUS APRN) Time Seen by Provider: 11:19 (DESMOND MIKE MD) HPI - Abdominal Pain Initial Comments He had onset of abdominal pain in the right lower quadrant 4 days ago. It is about the same as when it started but has not improved much at all. Has been having increased stools with some blood in them as well. Denies any nausea/ vomiting or fever or chills. His PCP is Dr. Barber and he has not discussed this pain with him. Has had pain like this in the past but it didnt last this long. Has had a colonscopy in the past, about 1.5 years ago but it was normal. Pain today is about a 6/10. Occurred At: home Onset: Gradual Duration: other (Over the last 4 days) Quality: burning Location: RLQ Radiation: no radiation Activities at Onset: none Associated Symptoms: DENIES: back pain, chest pain, diaphoresis, fatigue, fever /chills, headache, heartburn, nausea/vomiting, rash, shortness of breath, swelling/mass in abdomen, syncope, weakness Hx of Similar Symptoms: No (NOLD,TOYA N TROLLEY CAR MECHANIC) Allergies: Coded Allergies: sulfamethoxazole (Verified Allergy, Unknown, 06/27/16) trimethoprim (Verified Allergy, Unknown, 06/27/16) Past History Past Medical History Respiratory: asthma Musculoskeletal: other (NOLD,TOYA N TROLLEY CAR MECHANIC) Surgical History Joint: knee (NOLD,TOYA N TROLLEY CAR MECHANIC) Family History Family History: Negative (NOLD,TOYA N TROLLEY CAR MECHANIC) Vaccines Hx Influenza Vaccination: Yes (FALL 2013) Hx Pneumococcal Vaccination: Yes (2013) (NOLD,TOYA N TROLLEY [employer] MECHANIC) Social History Smoking Status: Current every day smoker Substance Use Type: does not use Alcohol Intake: none (NOLD,TOYA N TROLLEY CAR MECHANIC) Review of Systems Constitutional Constitutional: DENIES: chills, dizziness, fatigue, fever, weakness (NOLD, TOYA N TROLLEY [employer] MECHANIC) Cardiovascular Cardiac: DENIES: chest pain, orthopnea Rhythm/Rate: DENIES: irregular beat, palpitations (NOLD,TOYA N [employer]OLLEY [employer] MECH[employer]IC) Pulmonary Respiratory: DENIES: cough, dyspnea, sputum, tachypnea (NOLD,TOYA N [employer]OLLEY [employer] MECHANIC) GI Upper Abdomen: DENIES: nausea, pain, vomiting Lower Abdomen: blood in stool, diarrhea, pain, DENIES: constipation (NOLD, TOYA N TROLLEY [employer] MECHANIC) General: DENIES: dysuria, frequency, urgency (NOLD,TOYA N TROLLEY CAR MECHANIC) Neurological General: DENIES: headache, numbness, tingling, weakness (NOLD,TOYA N TROLLEY [employer] MECHANIC) Physical Exam General General Nourishment: well nourished, well developed, appears stated age, no acute distress, adult General Body Habitus: well groomed (NOLD,TOYA N TROLLEY CAR MECHANIC) Vitals and Pain First Documented Vital Signs Date Time Temp Pulse Resp B/P Pulse Ox O2 Delivery O2 Flow Rate FiO2 06/27/16 14:14 98.1 87 20 162/90 98 Room Air (DESMOND MIKE MD) Vitals and Pain Weight: Kilograms: 97.900 Height (feet): 6 Height (inches): 2.00 Triage Pain Scale: (TOYA DE JESUS APRN) RN VS reviewed by Provider: Yes (TOYA DE JESUS APRN) Normal Exams: Neck: Full range of motion, without adenopathy, JVD, bruits or thyromegaly Chest/Resp: Clear all butcher, with good airflow, and symmetry bilaterally CV: Regular rate and rhythm, without murmur or gallop, Pulses 2+ all extremities, capillary refill, <2 seconds all ext., no pedal edema noted Abdomen: Bowel sounds positive, non-distended, no hepatosplenomegaly, masses or bruits noted Lymphatic: No lymphadenopathy, or lymphedema noted Integumentary: No rashes, hives, or bruising noted Neurologic: Patient is alert, and oriented Psychiatric: Patient exhibits, appropriate attention, emotion and affect (TOYA DE JESUS APRN) Abdomen Palpation: FOUND: soft, tender (moderate TTP in the right lower quadrant), voluntary guarding (mild), NOT FOUND: involuntary guarding, rebound Auscultation: FOUND: normoactive (TOYA DE JESUS APRN) Differential Diagnoses Considering: Appendicitis, Bowel Obstruction, Constipation, Crohn's, Diverticulitis, Neoplasm, Ulcerative Colitis, UTI (TOYA DE JESUS APRN) Progress Results/Orders Orders Procedure Category Date Status Time Cbc W/Auto LAB 06/27/16 Complete Diff-Reflex Manual Cmp - Comprehensive LAB 06/27/16 Complete Metabolic Iv Lock (Ed Only) EDM 06/27/16 Transmitted 14:40 Normal Saline (Normal PHA 06/27/16 Complete Saline Iv) 14:45 Ondansetron Inj PHA 06/27/16 Complete (Zofran) 14:45 Morphine Sulfate PHA 06/27/16 Complete (Morphine) 14:45 Ct Abd/Pelvis CT 06/27/16 Resulted W/Contrast Only 15:41 Iohexol (Omnipaque) PHA 06/27/16 Complete 15:52 Normal Saline (Ns) PHA 06/27/16 Complete 15:53 Saline Flush (Iv PHA 06/27/16 Complete Flush) 15:53 Ertapenem (Invanz) PHA 06/27/16 Complete 17:15 Compression Type Scd/ NELLI 06/27/16 In Process Jesse Mendoza 17:11 Place In Facility As: ADMIT 06/27/16 Transmitted 17:25 Nicotine Patch PHA 06/28/16 In Process (Nicoderm) 09:00 Normal Saline (Normal PHA 06/27/16 In Process Saline Iv) 18:30 Morphine Sulfate PHA 06/27/16 In Process (Morphine) 18:30 Ondansetron Inj PHA 06/27/16 In Process (Zofran) 18:30 Consent For Procedure NELLI 06/27/16 In Process 18:34 Bupivacaine 0.25%/Epi PHA 06/27/16 Complete 1:200k (Marcaine/E 21:28 Transfer TRANSFER 06/27/16 Complete Measure Vital Signs NELLI 06/27/16 In Process Regular Diet DIET 06/28/16 Transmitted Breakfast Activity As Tolerated NELLI 06/27/16 In Process 21:31 Iv Lock (Nursing) NELLI 06/27/16 In Process 21:31 Pt To Spend The Nite NELLI 06/27/16 In Process As Outpat 21:31 Incentive Spirometry RT 06/27/16 Logged 21:31 Manage Incentive NELLI 06/27/16 In Process Spirometer 16:00 Diphenhydramine PHA 06/27/16 In Process (Benadryl) 21:45 Lisinopril (Prinivil) PHA 06/27/16 In Process 21:45 Oxycodone/Apap 10/325 PHA 06/27/16 In Process (Percocet 10/325) 21:45 Pregabalin (Lyrica) PHA 06/27/16 In Process 21:45 Trazodone (Desyrel) PHA 06/27/16 In Process 21:45 Ketorolac (Toradol) PHA 06/27/16 In Process 21:45 Propofol 200mg PHA 06/27/16 Complete (Diprivan) 21:57 Rocuronium (Zemuron) PHA 06/27/16 Complete 21:57 Lidocaine 2% Syringe PHA 06/27/16 Complete (Lidocaine 2% Syrin 21:57 Fentanyl (Fentanyl) PHA 06/27/16 Complete 21:57 Fentanyl (Fentanyl) PHA 06/27/16 Complete 22:42 Sugammadex (Bridion) PHA 06/27/16 Complete 22:42 Manage Oxygen NELLI 06/27/16 In Process Administration 22:48 Hydromorphone PHA 06/27/16 Complete (Dilaudid) 23:00 Ondansetron Inj PHA 06/27/16 Complete (Zofran) 23:00 Oxygen, Continuous RT 06/27/16 Logged 22:48 Nicotine Patch PHA 06/28/16 In Process Removal (Nicoderm 09:00 Discharge Outpatient DISOUT 06/28/16 In Process 12:32 (DEMSOND MIKE MD) Lab Results Laboratory Tests Test 06/27/16 15:06 White Blood Count 12.7T/MM3 Red Blood Count 4.45M/MM3 Hemoglobin 14.1GM/DL Hematocrit 42.3% Mean Corpuscular Volume 95.1UM3 Mean Corpuscular Hemoglobin 31.7UUG Mean Corpuscular Hemoglobin Concent 33.3GM/DL RDW Standard Deviation 47.6FL Platelet Count 284T/MM3 Mean Platelet Volume 10.6UM3 Immature Granulocyte % (Auto) 0.2% Neutrophils (%) (Auto) 69.4% Lymphocytes (%) (Auto) 20.5% Monocytes (%) (Auto) 7.3% Eosinophils (%) (Auto) 2.1% Basophils (%) (Auto) 0.5% Absolute Immature Granulocyte (auto 0.02T/MM3 Absolute Neutrophils (auto) 8.8T/MM3 Absolute Lymphocytes (auto) 2.6T/MM3 Absolute Monocytes (auto) 0.9T/MM3 Absolute Eosinophils (auto) 0.3T/MM3 Absolute Basophils (auto) 0.1T/MM3 Turbidity < 20 Sodium Level 147MEQ/L Potassium Level 3.9MEQ/L Chloride Level 106MEQ/L Carbon Dioxide Level 29MEQ/L Anion Gap 12MEQ/L Blood Urea Nitrogen 10.0MG/DL Creatinine 0.8MG/DL Glomerular Filtration Rate Calc 106 BUN/Creatinine Ratio 13RATIO Glucose Level 90MG/DL Calculated Osmolality 281MOSM/KG Calcium Level 8.9MG/DL Total Bilirubin 0.50MG/DL Icterus Index < 2 Aspartate Amino Transf (AST/SGOT) 16U/L Alanine Aminotransferase (ALT/SGPT) 33U/L Alkaline Phosphatase 71U/L Total Protein 7.2G/DL Albumin 3.9G/DL Globulin 3.3G/DL Albumin/Globulin Ratio 1.2RATIO Chemistry Specimen Hemolysis < 15 (DESMOND MIKE MD) Lab Results Laboratory Tests Test 06/27/16 15:06 White Blood Count 12.7T/MM3 Red Blood Count 4.45M/MM3 Hemoglobin 14.1GM/DL Hematocrit 42.3% Mean Corpuscular Volume 95.1UM3 Mean Corpuscular Hemoglobin 31.7UUG Mean Corpuscular Hemoglobin Concent 33.3GM/DL RDW Standard Deviation 47.6FL Platelet Count 284T/MM3 Mean Platelet Volume 10.6UM3 Immature Granulocyte % (Auto) 0.2% Neutrophils (%) (Auto) 69.4% Lymphocytes (%) (Auto) 20.5% Monocytes (%) (Auto) 7.3% Eosinophils (%) (Auto) 2.1% Basophils (%) (Auto) 0.5% Absolute Immature Granulocyte (auto 0.02T/MM3 Absolute Neutrophils (auto) 8.8T/MM3 Absolute Lymphocytes (auto) 2.6T/MM3 Absolute Monocytes (auto) 0.9T/MM3 Absolute Eosinophils (auto) 0.3T/MM3 Absolute Basophils (auto) 0.1T/MM3 Turbidity < 20 Sodium Level 147MEQ/L Potassium Level 3.9MEQ/L Chloride Level 106MEQ/L Carbon Dioxide Level 29MEQ/L Anion Gap 12MEQ/L Blood Urea Nitrogen 10.0MG/DL Creatinine 0.8MG/DL Glomerular Filtration Rate Calc 106 BUN/Creatinine Ratio 13RATIO Glucose Level 90MG/DL Calculated Osmolality 281MOSM/KG Calcium Level 8.9MG/DL Total Bilirubin 0.50MG/DL Icterus Index < 2 Aspartate Amino Transf (AST/SGOT) 16U/L Alanine Aminotransferase (ALT/SGPT) 33U/L Alkaline Phosphatase 71U/L Total Protein 7.2G/DL Albumin 3.9G/DL Globulin 3.3G/DL Albumin/Globulin Ratio 1.2RATIO Chemistry Specimen Hemolysis < 15 (NOLD,TOYA N TROLLEY CAR MECHANIC) Medications Current ED Medications Sodium Chloride (Normal Saline IV) 1,000 ml @ 1,000 mls/hr Q1H ONCE IV Last administered on 06/27/16 15:19; Start 06/27/16 at 14:45; Stop 06/27/16 at 15:44 ; Status DC Ondansetron HCl (Zofran) 4 mg O ONCE IV Last administered on 06/27/16 15:19; Start 06/27/16 at 14:45; Stop 06/27/16 at 14:46; Status DC Morphine Sulfate (Morphine) 4 mg O ONCE IV Last administered on 06/27/16 15: 19; Start 06/27/16 at 14:45; Stop 06/27/16 at 14:46; Status DC Iohexol 1 bottle 1 bottle STK-MED ONCE .ROUTE ; Start 06/27/16 at 15:52; Stop at 15:53; Status DC Sodium Chloride (NS) 100 ml @ As Directed STK-MED ONCE .ROUTE ; Start 06/27/16 at 15:53; Stop 06/27/16 at 15:54; Status DC Sodium Chloride (Iv Flush) 10 ml STK-MED ONCE .ROUTE ; Start 06/27/16 at 15:53; Stop 06/27/16 at 15:54; Status DC (DESMOND MIKE MD) Medications Current ED Medications Sodium Chloride (Normal Saline IV) 1,000 ml @ 1,000 mls/hr Q1H ONCE IV Last administered on 06/27/16 15:19; Start 06/27/16 at 14:45; Stop 06/27/16 at 15:44 ; Status DC Ondansetron HCl (Zofran) 4 mg O ONCE IV Last administered on 06/27/16 15:19; Start 06/27/16 at 14:45; Stop 06/27/16 at 14:46; Status DC Morphine Sulfate (Morphine) 4 mg O ONCE IV Last administered on 06/27/16 15: 19; Start 06/27/16 at 14:45; Stop 06/27/16 at 14:46; Status DC Iohexol 1 bottle 1 bottle STK-MED ONCE .ROUTE ; Start 06/27/16 at 15:52; Stop at 15:53; Status DC Sodium Chloride (NS) 100 ml @ As Directed STK-MED ONCE .ROUTE ; Start 06/27/16 at 15:53; Stop 06/27/16 at 15:54; Status DC Sodium Chloride (Iv Flush) 10 ml STK-MED ONCE .ROUTE ; Start 06/27/16 at 15:53; Stop 06/27/16 at 15:54; Status DC (TOYA DE JESUS APRN) Progress Progress WBC is 12.7, neutrophils are 69.4. CMP is normal. CT does show enlarged appendix suggestive of appendicitis. Did call and speak with Dr. Randall regarding CT findings. Will admit at this time. Patient last ate a chick-shmuel-a sandwich at 1300 today. (TOYA DE JESUS APRN) CT CT : Reason for Exam: RLQ abdominal pain CT: Abd/Pelvis IV contrast Interpretation: Abnormal (acute appendicitis) (TOYA DE JESUS APRN) TOYA DE JESUS APRN Jun 27, 2016 14:45 DESMOND MIKE MD Jun 28, 2016 13:47
--- OUTSIDE RECORDS SUMMARY | 2016-06-27 14:45 | XMS REPORT | Continuity of Care Document ---
Author Author [facility] Organization [facility] Address Unknown Phone Unavailable Care Team Providers Care Diesel Fitter Mechanic Name Role Phone JENNY DEL ROSARIO MD Primary Care Physician [phone] Insurance Providers Payer Name Policy Number Subscriber Name Relationship [facility] Community Plan [id number] Tonya Hannon 17 Self Advance Directives Directive [...] F (96.8 - 99.1) Temperature (Calculated Celsius) [phone] degrees C (36.0 - 37.3) Temperature Source [...] Has specimen been collected/obtained? Y Urine Specific [place] June 02, 2008 7:45pm 1.010 L - [...] 2 0-7 Name: TONYA HANNON Unit #: [id number] : 1975 Sex: M Loc / Svc: ED DOS: 03/22/14 Signed Report #: [id number] DIAGNOSTIC IMAGING REPORT TYPE OF EXAM: CHEST, [...] completed 03/22/14 EMERGENCY DEPT VISIT completed 03/22/14 [id number]"INJECTION, HYDROMORPHONE, UP TO 4 MG" completed 03/22/14 Colonoscopy with polypectomy and biopsy completed 05/05/14 CHANTELL ROSE MD, FACS, CWS Encounters Encounter Location Date/Time Departed Emergency Room [facility] 03/22/14 7:21pm
--- OUTSIDE RECORDS SUMMARY | 2016-06-27 14:47 | XMS REPORT | Continuity of Care Document ---
Author Author [facility] Organization [facility] Address Unknown Phone Unavailable Care Team Providers Care Javascript Application Developer Name Role Phone JENNIFER SAMUELS Primary Care Physician [phone] Insurance Providers Payer Name Policy Number Subscriber Name Relationship [facility] Community Plan [id number] Tnoya Hannon 17 Self Problems Medical Problems Problem [...] F (96.8 - 99.1) Temperature (Calculated Celsius) 36.92956 degrees C (36.0 - 37.3) Pulse Rate [...] Has specimen been collected/obtained? Y Urine Specific [place] June 02, 2008 7:45pm 1.010 L - [...] Encounters Encounter Location Date/Time Departed Emergency Room [facility] 03/22/14 7:21pm Recent Diagnosis
--- OUTSIDE RECORDS SUMMARY | 2016-06-27 14:47 | XMS REPORT | Continuity of Care Document ---
Author Author [facility] Organization [facility] Address Unknown Phone Unavailable Allergies Active Description [...] twice a day as needed., 60 tabs HYDROcodone-acetaminophen([place] 5 mg-325 mg oral tablet) 1 tabs [...] Oral 2 tabs, Oral, q6hr, prescribed at [facility] [place], PRN: as needed for pain amLODIPine(amLODIPine 5 [...] Status Pt. Type Provider Facility Loc./Unit Complaint [id number] 05/12/2014 08:09:00 2014 18:00:00 DIS Outpatient Myrtle Sow MD [facility] [id number] 05/28/2016 05:16:48 Document Registration [id number] 11/18/2015 05:16:36 Document Registration [id number] 09/03/2015 05:17:25 Document Registration [id number] 06/10/2015 05:18:07 Document Registration [id number] 05/08/2015 05:17:02 Document Registration [id number] 02/18/2015 05:16:45 Document Registration [id number] 02/04/2015 14:29:18 Document Registration [id number] 02/04/2015 14:18:15 Document Registration [id number] 02/04/2015 14:08:07 Document Registration [id number] 02/04/2015 13:53:47 Document Registration [id number] 02/04/2015 13:46:15 Document Registration [id number] 02/04/2015 13:38:36 Document Registration [id number] 02/04/2015 12:39:18 Document Registration [id number] 02/04/2015 12:31:16 Document Registration [id number] 02/04/2015 12:24:00 Document Registration [id number] 02/04/2015 12:17:21 Document Registration [id number] 02/04/2015 11:43:41 Document Registration [id number] 02/04/2015 10:57:25 Document Registration [id number] 02/04/2015 10:41:25 Document Registration [id number] 02/04/2015 10:33:51 Document Registration [id number] 02/04/2015 10:28:21 Document Registration [id number] 02/04/2015 10:23:35 Document Registration [id number] 02/04/2015 10:12:52 Document Registration
--- NOTE | 2016-06-27 15:30 | NUR ---
UPDATE PATIENT DENIES NEEDS AT THIS TIME.
[2016-06-27 15:35] LABS: BASOPHILS # (AUTO) 0.1 T/MM3 (0-0.2); BASOPHILS % (AUTO) 0.5 % (0-2); EOSINOPHILS # (AUTO) 0.3 T/MM3 (0-0.5); EOSINOPHILS % (AUTO) 2.1 % (0-4); HCT - HEMATOCRIT 42.3 % (41-53); HGB - HEMOGLOBIN 14.1 GM/DL (13.5-17.5); IMMATURE GRANULOCYTE # (AUTO) 0.02 T/MM3 (0.00-0.03); IMMATURE GRANULOCYTE % (AUTO) 0.2 % (0.0-0.5); LYMPHOCYTES # (AUTO) 2.6 T/MM3 (1-4.8); LYMPHOCYTES % (AUTO) 20.5 % (23-45); MEAN CORPUSCULAR HGB 31.7 UUG (26-34); MEAN CORPUSCULAR HGB CONC(MCHC 33.3 GM/DL (31-37); MEAN CORPUSCULAR VOLUME 95.1 UM3 (80-100); MEAN PLATELET VOLUME 10.6 UM3 (9.4-12.4); MONOCYTES # (AUTO) 0.9 T/MM3 (0-0.8); MONOCYTES % (AUTO) 7.3 % (0-9.0); NEUTROPHILS #(AUTO)-ABSOLUTE 8.8 T/MM3 (1.8-7.7); NEUTROPHILS % (AUTO) 69.4 % (33-66); RED BLOOD COUNT 4.45 M/MM3 (4.50-5.90); WBC - WHITE BLOOD COUNT 12.7 T/MM3 (4.5-11.0)
[2016-06-27 15:49] LABS: ALBUMIN 3.9 G/DL (3.5-5.0); ALBUMIN/GLOBULIN RATIO 1.2 RATIO (1.1-2.2); ALKALINE PHOSPHATASE 71 U/L (38-126); ALT (SGPT) 33 U/L (21-72); ANION GAP 12 MEQ/L (5-15); AST (SGOT) 16 U/L (17-59); BUN/CREATININE RATIO 13 RATIO (6-26); CALCIUM 8.9 MG/DL (8.4-10.2); CHLORIDE 106 MEQ/L (98-107); CO2 - CARBON DIOXIDE 29 MEQ/L (22-30); CREATININE 0.8 MG/DL (0.8-1.5); GLOMERULAR FILTRATION RATE 106; GLUCOSE 90 MG/DL (75-110); POTASSIUM 3.9 MEQ/L (3.6-5); SODIUM 147 MEQ/L (134-144); TOTAL PROTEIN 7.2 G/DL (6.3-8.2)
[2016-06-27] MEDS ORDERED: IOHEXOL 300 MG/ML 100ml INJECTION ONE (15:52)
[2016-06-27] MEDS ORDERED: NORMAL SALINE 100 ML ONE (15:53)
[2016-06-27] MEDS ORDERED: SALINE FLUSH 10ml SYRINGE ONE (15:53)
--- NOTE | 2016-06-27 15:53 | NUR ---
CT TO CT VIA CART
--- NOTE | 2016-06-27 16:08 | NUR ---
CT RETURNS FROM CT VIA CART
[2016-06-27] MEDS ORDERED: ERTAPENEM 1 G in NORMAL SALINE 100 ML IV ONE (17:15)
--- OUTSIDE RECORDS SUMMARY | 2016-06-27 17:17 | XMS REPORT | Continuity of Care Document ---
Author Author [facility] Organization [facility] Address Unknown Phone Unavailable Care Team Providers Care General Cargo Clerk Name Role Phone JENNY DEL ROSARIO MD Primary Care Physician [phone] Insurance Providers Payer Name Policy Number Subscriber Name Relationship [facility] Community Plan [id number] Tonya Hannon 17 Self Advance Directives Directive [...] F (96.8 - 99.1) Temperature (Calculated Celsius) 36.94092 degrees C (36.0 - 37.3) Temperature Source [...] Has specimen been collected/obtained? Y Urine Specific [place] June 02, 2008 7:45pm 1.010 L - [...] 2 0-7 Name: TONYA HANNON Unit #: [id number] : [id number] Sex: M Loc / Svc: ED DOS: 03/22/14 Signed Report #: [id number] DIAGNOSTIC IMAGING REPORT TYPE OF EXAM: CHEST, [...] completed 03/22/14 EMERGENCY DEPT VISIT completed 03/22/14 [id number]"INJECTION, HYDROMORPHONE, UP TO 4 MG" completed 03/22/14 Colonoscopy with polypectomy and biopsy completed 05/05/14 CHANTELL ROSE MD, FACS, CWS Encounters Encounter Location Date/Time Departed Emergency Room [facility] 03/22/14 7:21pm
--- OUTSIDE RECORDS SUMMARY | 2016-06-27 17:19 | XMS REPORT | Continuity of Care Document ---
Author Author [facility] Organization [facility] Address Unknown Phone Unavailable Care Team Providers Care Examiner Of Currency Name Role Phone JENNIFER SAMUELS Primary Care Physician [phone] Insurance Providers Payer Name Policy Number Subscriber Name Relationship [facility] Community Plan [id number] Tonya Hannon 17 Self Problems Medical Problems [...] F (96.8 - 99.1) Temperature (Calculated Celsius) 36.38904 degrees C (36.0 - 37.3) Pulse Rate [...] Has specimen been collected/obtained? Y Urine Specific [place] June 02, 2008 7:45pm 1.010 L - [...] Encounters Encounter Location Date/Time Departed Emergency Room [facility] 03/22/14 7:21pm Recent Diagnosis
--- OUTSIDE RECORDS SUMMARY | 2016-06-27 17:19 | XMS REPORT | Continuity of Care Document ---
Author Author [facility] Organization [facility] Address Unknown Phone Unavailable Allergies Active Description [...] twice a day as needed., 60 tabs HYDROcodone-acetaminophen([place] 5 mg-325 mg oral tablet) 1 tabs [...] Oral 2 tabs, Oral, q6hr, prescribed at [facility] [place], PRN: as needed for pain amLODIPine(amLODIPine 5 [...] Status Pt. Type Provider Facility Loc./Unit Complaint [id number] 05/12/2014 08:09:00 2014 18:00:00 DIS Outpatient Myrtle Sow MD [facility] [id number] 05/28/2016 05:16:48 Document Registration [id number] 11/18/2015 05:16:36 Document Registration [id number] 09/03/2015 05:17:25 Document Registration [id number] 06/10/2015 05:18:07 Document Registration [id number] 05/08/2015 05:17:02 Document Registration [id number] 02/18/2015 05:16:45 Document Registration [id number] 02/04/2015 14:29:18 Document Registration [id number] 02/04/2015 14:18:15 Document Registration [id number] 02/04/2015 14:08:07 Document Registration [id number] 02/04/2015 13:53:47 Document Registration [id number] 02/04/2015 13:46:15 Document Registration [id number] 02/04/2015 13:38:36 Document Registration [id number] 02/04/2015 12:39:18 Document Registration [id number] 02/04/2015 12:31:16 Document Registration [id number] 02/04/2015 12:24:00 Document Registration [id number] 02/04/2015 12:17:21 Document Registration [id number] 02/04/2015 11:43:41 Document Registration [id number] 02/04/2015 10:57:25 Document Registration [id number] 02/04/2015 10:41:25 Document Registration [id number] 02/04/2015 10:33:51 Document Registration [id number] 02/04/2015 10:28:21 Document Registration [id number] 02/04/2015 10:23:35 Document Registration [id number] 02/04/2015 10:12:52 Document Registration
--- NOTE | 2016-06-27 17:23 | NUR ---
PLACE IN FACILITY PATIENT TO 134, ROHITH 2988
--- NOTE | 2016-06-27 17:42 | NUR ---
REPORT REPORT TO SREEKANTH DENSON
--- NOTE | 2016-06-27 17:50 | NUR ---
ADMIT ARRIVES TO ROOM 134 VIA CART FROM ER. PATIENT TRANSFERRED SELF FROM CART TO BED. ALERT AND ORIENTED X3. O2 RA. PATIENT ORIENTED TO SURROUNDINGS. BED IN LOWEST, SIDE RAILS UP X2, CALL LIGHT WITHIN REACH.
--- NOTE | 2016-06-27 17:50 | NUR ---
ADMIT ADMITTED TO ROOM 134. CARES RELEASED
[2016-06-27] MEDS: NICOTINE 21 MG PATCH TD SCH (18:04)
[2016-06-27] MEDS ORDERED: ONDANSETRON 4mg/2ml INJECTION IV PRN ×2 (18:30→23:00)
[2016-06-27] MEDS: NORMAL SALINE 1,000 ML IV SCH (18:40)
[2016-06-27] MEDS: MORPHINE SULFATE 4 MG SYRINGE IV PRN ×2 (18:45→20:52)
--- NOTE | 2016-06-27 18:45 | NUR ---
SURGEON CONTACT DR. ROSE IN ROOM FOR PT EVAL/ASSMT
--- NOTE | 2016-06-27 18:46 | NUR ---
IVF AND MS UNABLE TO SCAN IN NORMAL SALINE AND 4MG MORPHINE IV THESE WERE ADMINISTERED: 1840-NS@150CC/HR 1845-4MGIV
--- NOTE | 2016-06-27 18:55 | NUR ---
ABIMAEL ROJAS, IN ROOM FOR PT ASSMT AND HX
--- NOTE | 2016-06-27 19:07 | HPPDOC ---
HPI - Adult Date DATE: 06/27/16 TIME: 19:02 General Chief Complaint: RLQ abd pain History of Present Illness Per Dr. Randall Past Medical History Past Medical History Patient's Medical History: (1) HTN (hypertension) (2) Chronic knee pain Surgical History Patient's Surgical History: 04-25-2014 colonoscopy, tubular adenoma x2, Brittney Left knee ACL repair Right knee tibial plateau Current Medications Home Meds Reported Medications Lisinopril (Lisinopril) 10 Mg Tablet, 10 MG PO DAILY Y for HYPOTENSION 06/27/16 [nausea tabs] No Conflict Check, 1 TAB PO PRN 06/27/16 Loperamide HCl (Anti-Diarrheal) 2 Mg Tablet, 2 MG PO QID Y for DIARRHEA 06/27/16 Meloxicam (Meloxicam) 7.5 Mg Tablet, 7.5 MG PO BID 06/27/16 Pregabalin (Lyrica) 150 Mg Capsule, 150 MG PO BID Y for PRN ORDERS 06/27/16 Oxycodone HCl/Acetaminophen (Oxycodone-Acetaminophen 10-325) 10-325 Tablet, 1 TAB PO TID Y for PAIN 06/27/16 Trazodone HCl (Trazodone HCl) 50 Mg Tablet, 50 MG PO HS Y for PRN ORDERS 06/27/16 Diphenhydramine HCl (Diphenhydramine HCl) 25 Mg Tablet, 25 MG PO Q4HR Y for PRN ORDERS 05/02/14 Allergies: Coded Allergies: sulfamethoxazole (Verified Allergy, Unknown, 06/27/16) trimethoprim (Verified Allergy, Unknown, 06/27/16) Family History Family History: mother age 51 CHF, COPD father = alove, hast HTN and scleroderma. 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 Advance Directives: No DPOA for Healthcare Only GS Review of Systems Ear, Nose, and Throat REPORTS vision problems ( glasses) Respiratory REPORTS other (smoker) Gastrointestional REPORTS diarrhea, REPORTS blood in stools Genitourinary REPORTS difficulty urinating (occasional difficulty starting stream) Musculoskeletal REPORTS joint pain 10-point Review of Systems otherwise negative except HPI Comments see a "pain doctor" for his knee pain, denies signing a narcotic contract GS Physical Exam Vital Signs Date Time Temp Pulse Resp B/P Pulse Ox O2 Delivery O2 Flow Rate FiO2 06/27/16 17:56 97.9 80 18 157/101 100 Room Air Height (Feet): 6 Height (Inches): 2.00 Weight (Kilograms): 97.000 BMI 27.5 Laboratory Laboratory Tests 06/27/16 15:06 Laboratory Tests 06/27/16 15:06 Assessment & Plan Code Status Full Code Hospital Course Summary Disclaimer The visit summary below is not to be considered part of the above Progress Note. DIANNA SMITH APRN, CWS Jun 27, 2016 19:06
--- NOTE | 2016-06-27 19:29 | HPF ---
FINDINGS Mr. Zeng is a 41-year-old gentleman whom I was asked to see today as a new patient through the emergency room as a result of the patient's history and physical findings of right lower quadrant abdominal pain in conjunction with an abnormal CT scan revealing evidence for appendicitis. Upon questioning the patient, he states that about two to three days ago he began to notice some discomfort within his abdomen. Over the last day or so this pain has become more severe and is located within his right lower quadrant. Pain is constant in nature. He states that he has been having some loose stools in conjunction with the abdominal pain. He states at times he has noted some blood within his stools. Patient states that this has been present, however, over the course of the last several years and that this is "not a new problem." Patient has never had pain like this, however, in the past. As a result of this increasing pain within his right lower quadrant. The patient presented to our emergency room for further evaluation. Patient states that the pain is significantly worse when "someone pushes on him." Pain is made somewhat better by lying down. PAST MEDICAL HISTORY CHRONIC ILLNESSES/SYSTEM DISORDERS 1. History for hypertension. 2. History for chronic knee pain. PAST SURGICAL HISTORY "Knee surgery." Patient states that he has had ACL repair and tibial plateau fracture. MEDICATIONS Benadryl on a p.r.n. basis. Lisinopril 10 mg p.r.n. Loperamide. Meloxicam 7.5 mg p.o. b.i.d. Oxycodone 10/325 one p.o. t.i.d./p.r.n. Lyrica 150 mg p.o. b.i.d. Trazodone 50 mg p.o. q.h.s./p.r.n. ALLERGIES Sulfa. FAMILY HISTORY Patient states that his mother as a result of congestive heart failure. Father is still alive and healthy. SOCIAL HISTORY The patient states he smokes about a pack of cigarettes a day and has done so over the last 20 years or more. Denies current alcohol use. REVIEW OF SYSTEMS Review of systems was undertaken with the patient and is essentially negative except as stated in Findings section and Past Medical History section for Constitutional, HEENT, Cardiac, GI, , Musculoskeletal (patient states that he suffers from chronic knee pain, as stated above), Neurologic, Hematology/Oncology, Endocrine. PHYSICAL EXAMINATION Mr. Zeng is a 41-year-old gentleman who does appear to be in some discomfort but did not appear to be in acute distress. Vitals: Temperature 97.9, pulse 80, respirations 18, blood pressure 157/101. SAO2 present room air. HEENT: Normocephalic. Pupils are equally round and react to light and accommodation. CHEST: Clear to auscultation bilaterally. HEART: Regular rate and rhythm. Normal S1 and S2 without gallops, murmurs or clicks. ABDOMEN: Palpation of the abdomen does indeed reveal fairly significant pain localized to the right lower quadrant of his abdomen. With firm palpation the patient did have a component of guarding. In fact, he told me to "stop pushing on him." He did not have a positive Rovsing's sign, i.e., firm palpation of the left lower quadrant did not result in referred pain to the right lower quadrant. The patient does not have mel rebound. I do not appreciate evidence for hepatomegaly or other abnormal masses. EXTREMITIES: Without clubbing, cyanosis, or edema. NEURO: Cranial nerves II-XII grossly intact. Patient is without focal motor or sensory deficits. LABORATORY/RADIOGRAPHIC EVALUATION The patient had a CBC upon admission. White count was elevated at 12.7. Hemoglobin normal at 14.1. CMP was obtained and found to be essentially within normal limits. CT scan of his abdomen and pelvis was obtained. Outside radiology report states that the appendix is somewhat enlarged and suggestive of appendicitis. ASSESSMENT 41-year-old gentleman with probable appendicitis. PLAN I informed the patient that his clinical history and physical findings as well as to some extent his laboratory results and radiographic results are all indicative for appendicitis. It was therefore my recommendation to the patient that we should proceed with surgical intervention. Specifically, I discussed with the patient a laparoscopic appendectomy and its associated risks which included but was not inclusive of bleeding, infection as well as potential conversion to an open procedure. The patient understood and agreed with the proposed plan at this time. MATTHEW
[2016-06-27] MEDS ORDERED: BUPIVACAINE 0.25%/EPI 1:200,000 30ml SDV ONE (21:28)
--- NOTE | 2016-06-27 21:28 | ANESPREOP ---
Anesthesia Record Date and Time DATE: 06/27/16 TIME: 21:27 Pre-Op Diagnosis Acute Appendicitis Proposed Surgical Procedure Lap Appy NPO since: 1300 Allergies: Coded Allergies: sulfamethoxazole (Verified Allergy, Unknown, 06/27/16) trimethoprim (Verified Allergy, Unknown, 06/27/16) Ht/Wt/BMI Height: 6 ' 2.00 " Weight: 97.000 kg BMI: 27.5 kg/m2 Vital Signs Date Time Temp Pulse Resp B/P Pulse Ox O2 Delivery O2 Flow Rate FiO2 06/27/16 20:52 16 06/27/16 17:56 97.9 80 157/101 100 Room Air Medications Inpatient Medications Current Medications Medications (Trade) Dose Ordered Sig/Vernon Start Time Stop Time Status Last Admin Dose Admin Nicotine 21 mg 21 mg DAILY 06/28/16 09:00 06/27/16 18:04 21 MG Sodium Chloride (Normal Saline IV) 1,000 ml @ 150 mls/hr Q6H40M 06/27/16 18:30 06/27/16 18:40 150 MLS/HR Morphine Sulfate (Morphine) 1-4MG IV PRN PAIN Q1H PRN 06/27/16 18:30 06/27/16 20:52 4 MG Ondansetron HCl (Zofran) 4 mg Q6H PRN 06/27/16 18:30 Diphenhydramine HCl (Diphenhydramine HCl) 25 Mg Tablet, 25 MG PO Q4HR PRN for PRN ORDERS, (Reported) Last Taken: on 06/26/16 Lisinopril (Lisinopril) 10 Mg Tablet, 10 MG PO DAILY PRN for HYPOTENSION, (Reported) Last Taken: on 06/13/16 Loperamide HCl (Anti-Diarrheal) 2 Mg Tablet, 2 MG PO QID PRN for DIARRHEA, (Reported) Last Taken: on 06/26/16 Meloxicam (Meloxicam) 7.5 Mg Tablet, 7.5 MG PO BID, (Reported) Last Taken: on 06/27/16 0800 Oxycodone HCl/Acetaminophen (Oxycodone- Acetaminophen 10-325) 10-325 Tablet, 1 TAB PO TID PRN for PAIN, (Reported) Last Taken: on 06/27/16 1330 Pregabalin (Lyrica) 150 Mg Capsule, 150 MG PO BID PRN for PRN ORDERS, (Reported) Last Taken: on 06/24/16 Trazodone HCl (Trazodone HCl) 50 Mg Tablet, 50 MG PO HS PRN for PRN ORDERS, (Reported) Last Taken: on 06/13/16 [nausea tabs] , 1 TAB PO PRN, (Reported) Last Taken: on 06/26/16 2200 Currently on Beta Thad: No Medical/Surgical History Anesthesia PMH: Reports: *Hypertension, Arthritis (CHRONIC KNEE PAIN), Asthma ( A CHILD), Denies: *Diabetes, *MD, Anesthesia Reactions (NO AIRWAY ISSUES), Blood Transfusion Reac, CHF, COPD, CVA/Stroke/TIA, Cancer, Clotting Problems, Glaucoma, Malignant Hyperthermia, Renal Disease, Seizures, Thyroid Disease Smoking Status: Current every day smoker (1 pk) # of Packs per Day: 1 # of Years: 20 Use Chewing Tobacco?: No Substance Use Type: does not use Alcohol Intake: none Past Surgical History Orthopedic Surgeries: Yes - LT ACL RECONTRUCTION, RT KNEE HARDWARE PLACED Abdominal Surgeries: Yes - CURRENTLY ADMITTED FOR APPENDICITIS Genitourinary Surgeries: No Cardiac Surgeries: No Endocrine Surgeries: No Reproductive Surgeries: No Neurological Surgeries: No Ear Surgeries: No Nose Surgeries: No Throat Surgeries: No Other Surgeries: Yes - LT ACL RECONTRUCTION, RT KNEE HARDWARE PLACED, CSP Anesthesia Adverse Reactions: FOUND none Family Hx of Anesthesia Advers: none Hx of Motion Sickness: No Pertinent Findings Laboratory Tests 06/27/16 15:06 Physical Exam Respiratory: Bilat breath sounds equal, Lungs clear Cardiovascular: FOUND Regular rate, rhythm, FOUND No murmur Airway Assessment Mallampati Score: II TMD: 3 Fingerbreadths Neck Extension: Good Overall Assessment: No Airway Concerns ASA: 2, E Plan Anesthesia Plan: GETA Discussion Discussed risks/options/alternatives of anesthesia and questions answered. Patient consents. Nursing pain assessment noted. Present: Family Member Attestation Statement Prior to the delivery of any anesthetic medication, I examined the patient, developed the plan, obtained the patient's consent and discussed the risk and benefits of the procedure with the patient/guardian. MAGALIS SHCAEFFER CRNA Jun 27, 2016 21:28
[2016-06-27] MEDS ORDERED: DiphenhydrAMINE 25 MG CAPSULE PO PRN (21:45)
[2016-06-27] MEDS ORDERED: LISINOPRIL 10 MG TABLET PO PRN (21:45)
[2016-06-27] MEDS ORDERED: TRAZODONE 50 MG TABLET PO PRN (21:45)
[2016-06-27] MEDS ORDERED: KETOROLAC 30mg/ml INJECTION IV PRN (21:45)
[2016-06-27] MEDS ORDERED: PREGABALIN 150 MG CAPSULE PO PRN (21:45)
[2016-06-27] MEDS ORDERED: ROCURONIUM 50mg/5ml INJECTION IV ONE (21:57)
[2016-06-27] MEDS ORDERED: LIDOCAINE (2%) 100 MG/5 ML PF SYRINGE IV ONE (21:57)
[2016-06-27] MEDS ORDERED: FENTANYL 250mcg/5ml INJECTION ONE (21:57)
[2016-06-27] MEDS ORDERED: PROPOFOL 200mg 20 ML IV ONE (21:57)
--- NOTE | 2016-06-27 22:40 | GSPOSTPN ---
Procedure Procedure Surgeon: Tonia Anesthesia: General- TIVA ASA: 2, E Procedure laparoscopic appendectomy GS Diagnosis Preop Diagnosis appendicitis Postop Diagnosis same Complications Complications none Estimated Blood Loss See Anesthesia Record. Vital Signs See Anesthesia and PACU record. CHANTELL ROSE MD, FACS, CWS Jun 27, 2016 22:40
[2016-06-27] MEDS ORDERED: SUGAMMADEX 200 MG/2 ML INJECTION IV ONE (22:42)
[2016-06-27] MEDS ORDERED: FENTANYL 100mcg/2ml INJECTION ONE (22:42)
[2016-06-27] MEDS: HYDROMORPHONE 2mg/ml INJECTION IV PRN ×3 (22:58→23:23)
--- NOTE | 2016-06-27 23:05 | ANESPO ---
Post-Op Note Date 06/27/16 Time: 23:05 Status Pt Participated in Evaluation: Pt participated in person Vital Signs Date Time Temp Pulse Resp B/P Pulse Ox O2 Delivery O2 Flow Rate FiO2 06/27/16 22:58 16 06/27/16 22:45 97.8 91 173/102 98 Room Air Respiratory Function: Airway patent, Regular respirations Cardiovascular Function: Regular pulse Telemetry Pattern: SR Mental Status: Alert/oriented Pain Level Intensity: 8 Hydration: IV infusing Complications during Recovery None apparent Follow-Up Instructions Instructions Per Surgeon Additional Information Treating pain with Dilaudid in PACU MAGALIS SCHAEFFER CRNA Jun 27, 2016 23:05
[2016-06-28] MEDS: MORPHINE SULFATE 4 MG SYRINGE IV PRN ×2 (00:22→04:43)
[2016-06-28] MEDS: OXYCODONE/APAP 10mg/325mg TABLET PO PRN ×2 (01:33→10:18)
[2016-06-28] MEDS: NORMAL SALINE 1,000 ML IV SCH (02:05)
[2016-06-28 02:16] VITALS: BP 126/67; PULSE 94; RESP 13; O2SAT 96
--- NOTE | 2016-06-28 07:52 | OPNOTEF ---
DATE OF PROCEDURE 06/27/2016 SURGEON Osiel Randall MD PREOPERATIVE DIAGNOSIS Appendicitis. POSTOPERATIVE DIAGNOSIS Appendicitis. PROCEDURE Laparoscopic appendectomy. ANESTHESIA General endotracheal. EBL AND FLUIDS Please see chart. BRIEF HISTORY/INDICATIONS Mr. Zeng is a 41-year-old gentleman I was asked to see earlier today for suspected appendicitis. The patient was found to have a considerable amount of tenderness upon palpation within his right lower quadrant. He did have a mild leukocytosis. He did have a CT scan that was suggestive for appendicitis. As a result of the above indications, it was recommended he undergo surgical intervention/appendectomy. For completeness please refer to notes included in the patient's chart. FINDINGS Upon laparoscopy, the liver edge was smooth without nodularities. Gallbladder was normal in its appearance. Small bowel and colon which was visualized were within normal limits. The distal two to three feet of the terminal ileum was inspected and found to be without visible abnormalities. There was no evidence for Meckel's diverticulum nor mesenteric fat creeping to suggest Crohn disease. The appendix itself was not found to be markedly abnormal. The tip of the appendix did appear somewhat hyperemic and indurated in nature indicative for early appendicitis. A standard laparoscopic appendectomy was performed without incident. DESCRIPTION OF PROCEDURE After informed consent was obtained, the patient was brought to the operative suite and placed on the table in supine fashion. The abdomen was then prepped and draped in sterile fashion. Formal time-out was completed. 0.25% Marcaine with epinephrine was injected just beneath the level of the umbilicus. A 2 cm curved incision was made through the area of analgesia. Dissection was carried down through the deep subcuticular tissues to underlying fascia. Fascia was then grasped with two Ezio clamps and retracted anteriorly. A 1-cm incision was then made between the two Ezio clamps. A hemostat was then introduced into the fascial incision and gently spread. A U-stitch was then placed through the fascial opening with 0 Vicryl. A 12 mm Reji port was then placed through the fascial opening into the peritoneal cavity. Pneumoperitoneum was established to a patient pressure of 15 mmHg utilizing carbon dioxide. Additional 5 mm port was then placed within the suprapubic region as well as an additional 10/12 mm port within the right upper quadrant. Each port site was preinjected with 0.25% Marcaine with epinephrine and placed under direct visualization. The patient was subsequently placed in Trendelenburg position and rotated towards his left. Abdominal cavity was explored via the laparoscopic. Findings were as noted above. Liver edge was smooth without nodularities. Gallbladder was without noted abnormalities. Terminal ileum was carefully inspected via the laparoscope. Terminal ileum was run laparoscopically and the distal 2-3 feet was carefully inspected. As stated above, there was no evidence for mesenteric fat creeping to suggest Crohn disease. No evidence for Meckel's diverticulum. Attention was focused to the appendix. The appendix was somewhat retrocecal in nature. The tip of the appendix did appear somewhat hyperemic and indurated in nature consistent with that of early appendicitis. A small opening was then created within the mesoappendix. A linear stapler was then placed across the mesoappendix and fired. Vascular reload was placed in the linear stapler and placed across the mesoappendix and fired. Appendix was removed via the infraumbilical port site utilizing laparoscopic retrieval bag. Both staple lines were inspected and found to be intact. There was some minimal bleeding along the staple line upon the mesoappendix. A Horizon hemoclip was placed overlying the staple line resulting in complete hemostasis. Irrigation was performed and all irrigant was suctioned until clear. Ports were removed under direct visualization. Previously placed U stitch was then secured imbricating the fascia at the infraumbilical port site. All skin incisions were then closed with romel. The patient is in the process of awakening from his general anesthetic and will be sent back to the recovery room once deemed in stable condition. MATTHEW
[2016-06-28 08:00] VITALS: BP 156/83; PULSE 94; RESP 18; O2SAT 98
--- NOTE | 2016-06-28 08:24 | NUR ---
SHIFT REPORT PT ALERT/ORIENTED X3. VSS ON RM AIR. STANDBY ASSIST TO THE BATHROOM. GOOD OP. COULDN'T AMBULATE FURTHER DUE TO THE PAIN. GAVE MULTIPLE PRN PAIN MEDS THIS SHIFT (SEE EMAR). LAP SITES X3 CDI. ATE SOME APPLESAUCE. NICOTINE PATCH ON LEFT UPPER SHOULDER. FAMILY AT BEDSIDE THROUGH MOST OF THE EVENING. BED IN LOW POSITION, CALL LIGHT IN REACH, WILL CONTINUE TO MONITOR.
--- NOTE | 2016-06-28 08:42 | DI ---
EXAM: CT abdomen and pelvis with contrast. LOCATION OF DICTATION: [place] HISTORY: ITS.REASON: RLQ abdominal pain COMPARISON: No prior studies are available for comparison TECHNIQUE: CT images were obtained of the abdomen and pelvis utilizing 100 mL of Omnipaque 240. Coronal and sagittal reformations were utilized. Automated Exposure Control and Iterative Reconstruction dose reducing techniques were utilized. FINDINGS: CT ABDOMEN LUNG BASES: Unremarkable LIVER: Unremarkable. SPLEEN: Unremarkable. GALLBLADDER: Unremarkable. PANCREAS: Unremarkable. ADRENAL GLANDS: Unremarkable. KIDNEYS: Simple cysts within the right and left kidneys. AORTA: Unremarkable. LYMPH NODES: Unremarkable. STOMACH BOWEL LOOPS: Mildly prominent appendix measuring approximately 0.7 cm. No significant periappendiceal fat stranding. Findings could indicate early acute appendicitis. Clinical correlation is recommended PERITONEAL CAVITY: There is no abdominal pelvic ascites or lymphadenopathy CT PELVIS URINARY BLADDER: Unremarkable. PROSTATE: Unremarkable. OSSEOUS STRUCTURES: No suspicious or destructive osseous lesions. IMPRESSION: Mildly prominent appendix. No significant periappendiceal fat stranding or fluid collections. Cannot exclude early acute appendicitis. Clinical correlation is recommended. .
[2016-06-28 08:53] VITALS: TEMP 98.8
[2016-06-28 08:56] VITALS: PULSE 94; RESP 18; O2SAT 96
[2016-06-28] MEDS ORDERED: NICOTINE PATCH REMOVAL TD SCH (09:00)
[2016-06-28 09:32] VITALS: PULSE 94; RESP 18
--- NOTE | 2016-06-28 11:07 | NUR ---
CM CM into visit with pt. Noted to be alert and oriented. Observed to be lying on the bed. Introduced self and explained role of CM such as establishing home health services. Asked regarding discharge needs. Pt denied having discharge needs for home. Contact information given and encouraged to contact CM if needs arise, even after discharge. Pt verbalized an understanding. Addendum: 06/28/16 at 1108 by LUCI FAM RN Amended: Links added.
[2016-06-28] MEDS: NICOTINE 21 MG PATCH TD SCH (11:20)
[2016-06-28 12:10] VITALS: BP 140/94; PULSE 99; RESP 16; TEMP 97.7; O2SAT 96
[2016-06-28] MEDS ORDERED: POLY17PO6 PO (12:47)
[2016-06-28] MEDS ORDERED: OXYC1TAB13 PO (12:47)
--- NOTE | 2016-06-28 13:15 | NUR ---
DISCHARGE INSTRUCTIONS PATIENT IS ALERT AND ORIENTED X3. PATIENT VITALS ARE STABLE AND PATIENT IS ON ROOM AIR. PATIENT DENIES CP, NAUSEA, AND SOA. PATIENT DISCHARGE INSTRUCTIONS INCLUDE: REASONS TO CALL DOCTOR AND/OR SEEK IMMEDIATE CARE, FOLLOW UP APPOINTMENT, INCISION CARE, ACTIVITY/BATHING, DIET, SIGNS AND SYMPTOMS OF INFECTION, AND DI FOR LAPAROSCOPIC APPENDECTOMY. PERSONAL BELONGINGS RETURNED. IV DISCONTINUED. PATIENT AMBULATED THROUGH FRONT ENTRANCE WITH NURSING STAFF. PATIENT TRANSPORTED HOME FOR SELF CARE BY FAMILY.
== END 2016-06-28 13:15 | disposition home or self-care (01) ==
LOC: ED 14:08 → SCU 17:11 → SRG 17:50 → SCU 06-28 13:15
PROVIDERS: ATTEND Surgery
DX: K38.8 Other specified diseases of appendix (principal); K35.80 Unspecified acute appendicitis; J45.909 Unspecified asthma, uncomplicated; Z79.899 Other long term (current) drug therapy
CPT/HCPCS: 36415; 44970; 74177; 80053; 85025; 94664; 96361; 96365; 96375; 99284; J1170; J1335; J1885; J2405; J2704; J3010; J7030; J7050; Q9967; S0020

== ENCOUNTER 2016-07-09 23:31 | Emergency (ER) | payer MEDICAID ==
[~2016-07-09] VITALS: Ht 188 cm; Wt 97.8 kg
[~2016-07-09 23:31] MED LIST changes: -ACET-2723 PO; -AMLO5TAB2 PO; +LISI10TA7 PO; +LOPE2TAB8 PO; +MELO-273 PO; +OXYC-533 PO; +OXYC1TAB13 PO; +POLY17PO6 PO; +PREG150C PO; +TRAZ-170 PO; +[UNRECOGNIZED DRUG - OTHER] PO
--- OUTSIDE RECORDS SUMMARY | 2016-07-09 23:35 | XMS REPORT | Continuity of Care Document ---
Author Author [facility] Organization [facility] Address Unknown Phone Unavailable Care Team Providers Care Branch Mechanic Name Role Phone JENNY DEL ROSARIO MD Primary Care Physician [phone] Insurance Providers Payer Name Policy Number Subscriber Name Relationship [facility] Community Plan [id number] Tonya Hannon 17 Self Advance Directives Directive [...] F (96.8 - 99.1) Temperature (Calculated Celsius) 36.92421 degrees C (36.0 - 37.3) Temperature Source [...] Has specimen been collected/obtained? Y Urine Specific [place] June 02, 2008 7:45pm 1.010 L - [...] 2 0-7 Name: TONYA HANNON Unit #: [id number] : [id number] Sex: M Loc / Svc: ED DOS: 03/22/14 Signed Report #: [id number] DIAGNOSTIC IMAGING REPORT TYPE OF EXAM: CHEST, [...] completed 03/22/14 EMERGENCY DEPT VISIT completed 03/22/14 [id number]"INJECTION, HYDROMORPHONE, UP TO 4 MG" completed 03/22/14 Colonoscopy with polypectomy and biopsy completed 05/05/14 CHANTELL ROSE MD, FACS, CWS Encounters Encounter Location Date/Time Departed Emergency Room [facility] 03/22/14 7:21pm
--- OUTSIDE RECORDS SUMMARY | 2016-07-09 23:36 | XMS REPORT | Continuity of Care Document ---
Author Author [facility] Organization [facility] Address Unknown Phone Unavailable Care Team Providers Care Entertainment Usher Name Role Phone BARRIE ANDRADE MD Primary Care Physician [phone] Insurance Providers Guarantor Tonya Hannon Address [address] [place] [id number] Email [email or web address] Payer [facility] Community Plan Policy Number [id number] Subscriber's Name Tonya Hannon Relationship 18 Self Effective Date 16 Expiration Date 16 Advance Directives Directive Response Recorded Date/Time Ordered Resuscitation Status Full Code 06/27/16 5:04pm Resuscitation Documents on File No 06/27/16 5:53pm DPOA for Healthcare Only No 06/27/16 7:07pm Living Will No 06/27/16 5:53pm Problems Active Problems Medical Problem Onset Date Status Acute appendicitis Unknown Acute Chronic knee pain Unknown Acute HTN (hypertension) Unknown Musculoskeletal chest pain Unknown Acute Musculoskeletal chest pain Unknown Acute Medications Current Home Medications Medication Dose Units Route Directions Days Qty Instructions Start Date Diphenhydramine Hcl 25 Mg Tablet 25 Mg Oral Every 4 Hours as needed for Prn Orders 05/02/14 Lisinopril 10 Mg Tablet 10 Mg Oral Daily as needed for Increased Blood Pressure 06/27/16 Loperamide Hcl (Anti-Diarrheal) 2 Mg Tablet 2 Mg Oral Four Times Daily as needed for Diarrhea 06/27/16 Meloxicam 7.5 Mg Tablet 7.5 Mg Oral Twice A Day 06/27/16 Nausea Tabs 1 Tab Oral As Needed 06/27/16 Oxycodone Hcl/Acetaminophen (Oxycodone-Acetaminophen 10-325) 10-325 Tablet 1 Tab Oral Three Times A Day as needed for Pain 06/27/16 Oxycodone Hcl/Acetaminophen (Percocet 10-325 Mg Tablet) 10-325 Tablet 1 Tab Oral Every 4-6 Hours for Pain 30 Tablet 06/28/16 Polyethylene Glycol 3350 (Miralax) 17 Gm Powd.pack 1 Packet Oral Daily as needed for Constipation 30 Packet 06/28/16 Pregabalin (Lyrica) 150 Mg Capsule 150 Mg Oral Twice A Day as needed for Prn Orders 06/27/16 Trazodone Hcl 50 Mg Tablet 50 Mg Oral Bedtime as needed for Prn Orders 06/27/16 Social History Social History Problem Response Recorded Date/Time Onset Date Status Reason for Hospitalization acute appendicitis 06/28/2016 1:01pm Not Applicable Not Applicable Hx Substance Use No 06/27/2016 3:31pm Not Applicable Not Applicable Hx Alcohol Use No 06/27/2016 3:31pm Not Applicable Not Applicable Has the pt used tobacco in the last 12 months Yes 06/27/2016 5:58pm Not Applicable Not Applicable Tobacco Usage none 03/22/2014 11:39pm Not Applicable Not Applicable Query Response Start Date Stop Date Smoking Status Current every day smoker Hospital Discharge Instructions Instructions: Care Instructions: I was in the hospital because (patient own words): RIGHT SIDE PAIN, BLOODY STOOL Discharge Diet: regular Discharge Activity: Do not drive, operate machinery for 24 hours after surgery or while taking pain medication. No lifting more than 25 pounds for 4 weeks. Follow Up Appointments: Follow up with [place] APRN/Dr. Rose ion July 12 at 11:45 am Pending Lab / Results: Will review at f/u apt Expected Signs/Symptoms: decreasing abdominal and incsional pain. possible constipaiotn due to narcotic pain medication and less activity, try to avoid this with stool softener daily, Miralax daily if needed. May add Milk of Magnesia if no BM for 2 days in a row. Notify Physician If: 1. Call your surgeon if you are having problems relating to your surgery at [phone]. 2. Problems such as: Temp above 101.5 degrees You develop redness, excessive swelling of the incision, increasing pain or excessive foul smelling drainage. 3. If the office is closed, call [facility] at [phone] and have your Surgeon paged. During Business Hours:: Call your surgeon at at [phone]. After Business Hours:: If the office is closed, call [facility] at [phone] and have your Surgeon paged. Pain Management/Treatment: Follow prescriptions as prescribed Pain Scale Utilized to Educate Patient: 0-10 Pain Scale Wound/Incision Care: Cover romel with bandaid. Do not let a wet bandaid remain on an incision. May shower starting June 30, no tub bath. Condition at time of discharge: Good Plan of Care Discharge Date 06/28/16 1:15pm Instructions/Education Provided Laparoscopic Appendectomy (DC) Prescriptions See Medication Section Functional Status Query Response Date Recorded Mobility Status Ambulatory June 27, 2016 5:57pm Assistive Devices None June 27, 2016 5:57pm Activity Limitations Fatigue Dizziness Pain June 27, 2016 5:57pm Feeding Ability Independent June 27, 2016 5:57pm Toileting Ability Independent June 27, 2016 5:57pm Grooming Ability Independent June 27, 2016 5:57pm Dressing Ability Independent June 27, 2016 5:57pm Driving Ability Independent June 27, 2016 5:57pm Housework Ability Independent June 27, 2016 5:57pm Meal Preparation Ability Independent June 27, 2016 5:57pm Stair Climbing Ability Independent June 27, 2016 5:57pm Ability to complete ADL's impeded by No change June 27, 2016 5:57pm Cognitive/Perceptual Impairments Impaired vision June 27, 2016 5:57pm Visual Assistive Devices Glasses With patient June 27, 2016 5:57pm Preferred Method of Learning Listening June 27, 2016 5:57pm Allergies, Adverse Reactions, Alerts Allergen Type Severity Reaction Status Last Updated Sulfamethoxazole Allergy Unknown Active 06/27/16 Trimethoprim Allergy Unknown Active 06/27/16 Immunizations Query Response on File Recorded Date/Time Hx Influenza Vaccination No 06/27/16 5:58pm Hx Pneumococcal Vaccination No 06/27/16 5:58pm Hx Influenza Vaccination No 06/27/16 5:58pm Vital Signs Acute Vital Signs Vital Response Date/Time Temperature (Fahrenheit) 97.7 deg F (96.8 - 99.1) 06/28/2016 12:10pm Temperature (Calculated Celsius) 36.52494 degrees C (36.0 - 37.3) 06/28/2016 12:10pm Temperature Source Temporal 06/27/2016 11:34pm Pulse Rate (adult) 99 bpm (60 - 100) 06/28/2016 12:10pm Respiratory Rate 16 breaths/min (10 - 20) 06/28/2016 12:10pm O2 Sat by Pulse Oximetry 96 % (90 - 100) 06/28/2016 12:10pm Oxygen Delivery Method Room Air 06/28/2016 12:10pm Blood Pressure 140/94 mm Hg 06/28/2016 12:10pm Blood Pressure Source Automatic Cuff 06/28/2016 12:10pm Height (Feet) 6 feet 06/27/2016 7:07pm Height (Inches) 2.00 inches 06/27/2016 7:07pm Weight (Kilograms) 97.000 kg 06/27/2016 5:52pm Body Mass Index (BMI) 27.5 06/27/2016 5:52pm Results Laboratory Results Test Name Result Units Flags Reference Collection Date/Time Result Date/ Time Comments White Blood Count 12.7 T/MM3 H 4.5-11.0 06/27/2016 3:06pm 06/27/2016 3: 35pm Red Blood Count 4.45 M/MM3 L 4.50-5.90 06/27/2016 3:06pm 06/27/2016 3: 35pm Hemoglobin 14.1 GM/DL 13.5-17.5 06/27/2016 3:06pm 06/27/2016 3:35pm Hematocrit 42.3 % 41-53 06/27/2016 3:06pm 06/27/2016 3:35pm Mean Corpuscular Volume 95.1 UM3 80-100 06/27/2016 3:06pm 06/27/2016 3: 35pm Mean Corpuscular Hemoglobin 31.7 UUG 26-34 06/27/2016 3:06pm 2016 3:35pm Mean Corpuscular Hemoglobin Concent 33.3 GM/DL 31-37 06/27/2016 3:06pm 06/27/2016 3:35pm RDW Standard Deviation 47.6 FL 36.9-50.2 06/27/2016 3:06pm 06/27/2016 3 :35pm Platelet Count 284 T/MM3 130-400 06/27/2016 3:06pm 06/27/2016 3:35pm Mean Platelet Volume 10.6 UM3 9.4-12.4 06/27/2016 3:06pm 06/27/2016 3: 35pm Neutrophils (%) (Auto) 69.4 % H 33-66 06/27/2016 3:06pm 06/27/2016 3: 35pm Lymphocytes (%) (Auto) 20.5 % L 23-45 06/27/2016 3:06pm 06/27/2016 3: 35pm Monocytes (%) (Auto) 7.3 % 0-9.0 06/27/2016 3:06pm 06/27/2016 3:35pm Eosinophils (%) (Auto) 2.1 % 0-4 06/27/2016 3:06pm 06/27/2016 3:35pm Basophils (%) (Auto) 0.5 % 0-2 06/27/2016 3:06pm 06/27/2016 3:35pm Immature Granulocyte % (Auto) 0.2 % 0.0-0.5 06/27/2016 3:06pm 2016 3:35pm Absolute Neutrophils (auto) 8.8 T/MM3 H 1.8-7.7 06/27/2016 3:06pm 2016 3:35pm Absolute Lymphocytes (auto) 2.6 T/MM3 1-4.8 06/27/2016 3:06pm 2016 3:35pm Absolute Monocytes (auto) 0.9 T/MM3 H 0-0.8 06/27/2016 3:06pm 2016 3:35pm Absolute Eosinophils (auto) 0.3 T/MM3 0-0.5 06/27/2016 3:06pm 2016 3:35pm Absolute Basophils (auto) 0.1 T/MM3 0-0.2 06/27/2016 3:06pm 06/27/2016 3:35pm Absolute Immature Granulocyte (auto 0.02 T/MM3 0.00-0.03 06/27/2016 3: 06pm 06/27/2016 3:35pm Icterus Index < 2 0-7 06/27/2016 3:06pm 06/27/2016 3:49pm Chemistry Specimen Hemolysis < 15 0-25 06/27/2016 3:06pm 06/27/2016 3 :49pm 0-25: Specimen Exhibited No Hemolysis. Turbidity < 20 0-20 06/27/2016 3:06pm 06/27/2016 3:49pm Sodium Level 147 MEQ/L H 134-144 06/27/2016 3:06pm 06/27/2016 3:49pm Potassium Level 3.9 MEQ/L 3.6-5 06/27/2016 3:06pm 06/27/2016 3:49pm Chloride Level 106 MEQ/L 98-107 06/27/2016 3:06pm 06/27/2016 3:49pm Carbon Dioxide Level 29 MEQ/L 22-30 06/27/2016 3:06pm 06/27/2016 3: 49pm Anion Gap 12 MEQ/L 5-15 06/27/2016 3:06pm 06/27/2016 3:49pm Blood Urea Nitrogen 10.0 MG/DL 9-20 06/27/2016 3:06pm 06/27/2016 3: 49pm Creatinine 0.8 MG/DL 0.8-1.5 06/27/2016 3:06pm 06/27/2016 3:49pm BUN/Creatinine Ratio 13 RATIO 6-26 06/27/2016 3:06pm 06/27/2016 3:49pm Glomerular Filtration Rate Calc 106 06/27/2016 3:06pm 06/27/2016 3: 49pm Glucose Level 90 MG/DL 75-110 06/27/2016 3:06pm 06/27/2016 3:49pm Calculated Osmolality 281 MOSM/KG H 261-280 06/27/2016 3:06pm 2016 3:49pm Calcium Level 8.9 MG/DL 8.4-10.2 06/27/2016 3:06pm 06/27/2016 3:49pm Total Bilirubin 0.50 MG/DL 0.20-1.30 06/27/2016 3:06pm 06/27/2016 3: 49pm Alkaline Phosphatase 71 U/L 38-126 06/27/2016 3:06pm 06/27/2016 3:49pm Total Protein 7.2 G/DL 6.3-8.2 06/27/2016 3:06pm 06/27/2016 3:49pm Albumin 3.9 G/DL 3.5-5.0 06/27/2016 3:06pm 06/27/2016 3:49pm Globulin 3.3 G/DL 2.4-3.6 06/27/2016 3:06pm 06/27/2016 3:49pm Albumin/Globulin Ratio 1.2 RATIO 1.1-2.2 06/27/2016 3:06pm 06/27/2016 3 :49pm Aspartate Amino Transf (AST/SGOT) 16 U/L L 17-59 06/27/2016 3:06pm 06/27 3:49pm Alanine Aminotransferase (ALT/SGPT) 33 U/L 21-72 06/27/2016 3:06pm 3:49pm Name: TONYA HANNON Unit #: [id number] : [id number] Sex: M Admit Date: Loc / Svc: SRG Discharge Date: DIAGNOSTIC IMAGING REPORT Report #: [id number] [facility] LOTUS Junior EXAM: CT abdomen and pelvis with contrast. LOCATION OF DICTATION: [place] HISTORY: ITS.REASON: RLQ abdominal pain COMPARISON: No prior studies are available for comparison TECHNIQUE: CT images were obtained of the abdomen and pelvis utilizing 100 mL of Omnipaque 240. Coronal and sagittal reformations were utilized. Automated Exposure Control and Iterative Reconstruction dose reducing techniques were utilized. FINDINGS: CT ABDOMEN LUNG BASES: Unremarkable LIVER: Unremarkable. SPLEEN: Unremarkable. GALLBLADDER: Unremarkable. PANCREAS: Unremarkable. ADRENAL GLANDS: Unremarkable. KIDNEYS: Simple cysts within the right and left kidneys. AORTA: Unremarkable. LYMPH NODES: Unremarkable. STOMACH BOWEL LOOPS: Mildly prominent appendix measuring approximately 0.7 cm. No significant periappendiceal fat stranding. Findings could indicate early acute appendicitis. Clinical correlation is recommended PERITONEAL CAVITY: There is no abdominal pelvic ascites or lymphadenopathy CT PELVIS URINARY BLADDER: Unremarkable. PROSTATE: Unremarkable. OSSEOUS STRUCTURES: No suspicious or destructive osseous lesions. IMPRESSION: Mildly prominent appendix. No significant periappendiceal fat stranding or fluid collections. Cannot exclude early acute appendicitis. Clinical correlation is recommended. . Procedures Procedure Status Date Provider(s) Laparoscopic appendectomy Completed 06/27/16 CHANTELL ROSE MD, FACS, CWS Encounters Encounter Location Arrival/Admit Date Discharge/Depart Date Attending Provider Departed Surgical Day Care [facility] 06/27/16 5:11pm 06/28/16 1: 15pm CHANTELL ROSE FACS CWDereje PEREZ Recent Diagnosis Musculoskeletal chest pain
--- OUTSIDE RECORDS SUMMARY | 2016-07-09 23:36 | XMS REPORT | Continuity of Care Document ---
Author Author [facility] Organization [facility] Address Unknown Phone Unavailable Care Team Providers Care Hat Binder Name Role Phone JENNIFER SAMUELS Primary Care Physician [phone] Insurance Providers Payer Name Policy Number Subscriber Name Relationship [facility] Community Plan [id number] Tonya Hannon 17 Self Problems Medical Problems [...] F (96.8 - 99.1) Temperature (Calculated Celsius) 36.76174 degrees C (36.0 - 37.3) Pulse Rate [...] Has specimen been collected/obtained? Y Urine Specific [place] June 02, 2008 7:45pm 1.010 L - [...] Encounters Encounter Location Date/Time Departed Emergency Room [facility] 03/22/14 7:21pm Recent Diagnosis
--- OUTSIDE RECORDS SUMMARY | 2016-07-09 23:36 | XMS REPORT | Continuity of Care Document ---
Author Author [facility] Organization [facility] Address Unknown Phone Unavailable Allergies Active Description [...] twice a day as needed., 60 tabs HYDROcodone-acetaminophen([place] 5 mg-325 mg oral tablet) 1 tabs [...] Oral 2 tabs, Oral, q6hr, prescribed at [facility], PRN: as needed for pain amLODIPine(amLODIPine 5 [...] Status Pt. Type Provider Facility Loc./Unit Complaint [id number] 05/12/2014 08:09:00 2014 18:00:00 DIS Outpatient Myrtle Sow MD [facility] [id number] 05/28/2016 05:16:48 Document Registration [id number] 11/18/2015 05:16:36 Document Registration [id number] 09/03/2015 05:17:25 Document Registration [id number] 06/10/2015 05:18:07 Document Registration [id number] 05/08/2015 05:17:02 Document Registration [id number] 02/18/2015 05:16:45 Document Registration [id number] 02/04/2015 14:29:18 Document Registration [id number] 02/04/2015 14:18:15 Document Registration [id number] 02/04/2015 14:08:07 Document Registration [id number] 02/04/2015 13:53:47 Document Registration [id number] 02/04/2015 13:46:15 Document Registration [id number] 02/04/2015 13:38:36 Document Registration [id number] 02/04/2015 12:39:18 Document Registration [id number] 02/04/2015 12:31:16 Document Registration [id number] 02/04/2015 12:24:00 Document Registration [id number] 02/04/2015 12:17:21 Document Registration [id number] 02/04/2015 11:43:41 Document Registration [id number] 02/04/2015 10:57:25 Document Registration [id number] 02/04/2015 10:41:25 Document Registration [id number] 02/04/2015 10:33:51 Document Registration [id number] 02/04/2015 10:28:21 Document Registration [id number] 02/04/2015 10:23:35 Document Registration [id number] 02/04/2015 10:12:52 Document Registration
[2016-07-09 23:40] VITALS: Ht 188 cm; Wt 97.8 kg
[2016-07-10] MEDS ORDERED: NORMAL SALINE 1,000 ML IV ONE (00:11)
[2016-07-10] MEDS ORDERED: ONDANSETRON 4mg/2ml INJECTION IV ONE (00:15)
[2016-07-10] MEDS ORDERED: HYDROMORPHONE 2mg/ml INJECTION IV ONE (00:15)
--- NOTE | 2016-07-10 00:15 | ERPDOC ---
Departure Disposition Decision Date: Jul 10, 2016 Disposition Decision Time: 03:21 Disposition: 01 DISCHARGED HOME, SELF-CARE Impression Impression Impression: Primary Impression: Abdominal bloating Severity: Moderate Condition: Stable Seen By: Physician only Referrals: BARRIE ANDRADE MD (PCP) TIERRA WATSON MD (Family) Patient Instructions: Abdominal Pain (ED) Problems/Meds/Labs Reviewed?: Yes Medications reviewed and manag: Yes Additional Instructions: Laboratories and CT scan are negative, I can find no specific etiology for your pain. You do need to follow-up with Dr. Randall on Monday as scheduled for reevaluation. Follow up care ordered?: Yes Mental Status: Alert, Oriented HPI - Abdominal Pain General Chief Complaint: Abdominal Pain Stated Complaint: ABD PAIN Time Seen by Provider: 00:11 Source: patient History/Exam Limitations: no limitations HPI - Abdominal Pain Initial Comments Patient is a 41-year-old male presents emergency department for evaluation of abdominal pain. Patient underwent laparoscopic appendectomy for acute appendicitis 06/27/16. Patient's been doing relatively well at home until 2 days ago when patient developed increasing abdominal distention and abdominal pain. Patient states his last bowel movement was this morning "normal". Patient's had no fevers no chills no nausea, able to still eating well during call. Patient states the pain was so severe tonight that 2 Percocet were unable to control it so he decided to come to the ER. Patient has follow-up appointment with a surgeon on Monday. Occurred At: home Onset: Gradual, Getting worse Duration: other (2 days) Pain Scale: Now & Worst: 8/10 Quality: fullness Location: generalized abdomen Allergies: Coded Allergies: sulfamethoxazole (Verified Allergy, Unknown, 07/09/16) trimethoprim (Verified Allergy, Unknown, 07/09/16) Past History Patient Surgical History 04-25-2014 colonoscopy, tubular adenoma x2, Brittney Left knee ACL repair Right knee tibial plateau Past Medical History Respiratory: asthma Musculoskeletal: other Surgical History General: appendix Joint: knee Vaccines Hx Influenza Vaccination: No Hx Pneumococcal Vaccination: No Social History Does patient use chewing tobac: No # of Packs/Tins per Day: 1 # of Years: 20 Substance Use Type: does not use Alcohol Intake: none 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 Review of Systems Constitutional Constitutional: DENIES: appetite decrease, chills, dizziness, fever, weakness Eyes Vision: DENIES: double vision, loss of visual butcher ENMT Sinuses: DENIES: congestion, rhinorrhea Mouth/Throat: DENIES: scratchy throat, sore throat Cardiovascular Cardiac: DENIES: chest pain, dyspnea on exertion Pulmonary Respiratory: DENIES: cough, dyspnea, sputum, tachypnea GI Upper Abdomen: DENIES: nausea, pain, vomiting Lower Abdomen: pain, DENIES: constipation, diarrhea General: DENIES: frequency, urgency Musculoskeletal General: DENIES: cramps, pain, weakness Integumentary Skin: DENIES: color change, itching, rash Endocrine Endocrine: DENIES: heat/cold intolerance Hematologic/Lymphatic Hematologic/Lymphatic: DENIES: anemia Physical Exam General General Nourishment: well nourished, well developed General Body Habitus: well groomed Vitals and Pain First Documented Vital Signs Date Time Temp Pulse Resp B/P Pulse Ox O2 Delivery O2 Flow Rate FiO2 07/09/ 23:40 98.2 86 20 181/100 97 Room Air Weight: Kilograms: 97.800 Height (feet): 6 Height (inches): 2.00 Triage Pain Scale: RN VS reviewed by Provider: Yes Eyes (brief) Eyes Brief: found: EOMI, PERRL ENMT (brief) ENMT Brief: FOUND: mucosa moist, normal dentition, NOT FOUND: nasal erythema, pharnyx erythema, tonsillar deviation Neck (brief) Neck: NOT FOUND: adenopathy, spasm, tenderness Respiratory (brief) Respiratory: FOUND: clear all butcher, equal bilaterally, NOT FOUND: rales, wheezes Cardiovascular (brief) Cardiac: FOUND: regular rate, regular rhythm Capillary Refill: <2 sec Abdomen Palpation: FOUND: soft, tender (mild diffuse tenderness), NOT FOUND: Obturator sign, Psoas sign, hepatomegaly, involuntary guarding, rebound, splenomegaly, voluntary guarding Auscultation: FOUND: normoactive Lymphatic (brief) Lymphatic Brief: NOT FOUND: adenopathy Musculoskeletal (brief) Musculoskeletal Brief: NOT FOUND: spasm, tenderness Integumentary (brief) Integumentary Brief: FOUND: dry, pink, warm, NOT FOUND: rash Neurologic (brief) Neurological Brief: FOUND: CN w/o gross def to obs, motor-no gross deficits, sensory-no gross deficits Psychiatric (brief) Psychiatric Brief: FOUND: alert, oriented Differential Diagnoses Considering: Bowel Obstruction, Cholecystitis, Constipation, Ileus, Pancreatitis, Ulcer, Volvulus Progress Results/Orders Orders Procedure Category Date Status Time Iv Lock (Ed Only) EDM 07/10/16 Transmitted 00:11 Nothing By Mouth (Ed EDM 07/10/16 Transmitted Only) 00:11 Cbc W/Auto LAB 07/10/16 Complete Diff-Reflex Manual 00:11 Cmp - Comprehensive LAB 07/10/16 Complete Metabolic 00:11 Lipase LAB 07/10/16 Complete 00:11 Ua, Dip Wreflex LAB 07/10/16 Complete Microsc & Marina Dry Dock Manager 00:11 Normal Saline (Normal PHA 07/10/16 Complete Saline Iv) 00:11 Hydromorphone PHA 07/10/16 Complete (Dilaudid) 00:15 Ondansetron Inj PHA 07/10/16 Complete (Zofran) 00:15 Ct Abd/Pelvis CT 07/10/16 Logged W/Contrast Only 01:26 Iohexol (Omnipaque) PHA 07/10/16 Complete 02:36 Normal Saline (Ns) PHA 07/10/16 Complete 02:36 Lab Results Laboratory Tests Test 07/10/16 01:03 07/10/16 02:19 White Blood Count 10.5T/MM3 Red Blood Count 4.32M/MM3 Hemoglobin 13.8GM/DL Hematocrit 40.4% Mean Corpuscular Volume 93.5UM3 Mean Corpuscular Hemoglobin 31.9UUG Mean Corpuscular Hemoglobin Concent 34.2GM/DL RDW Standard Deviation 46.5FL Platelet Count 304T/MM3 Mean Platelet Volume 10.0UM3 Immature Granulocyte % (Auto) 0.1% Neutrophils (%) (Auto) 60.6% Lymphocytes (%) (Auto) 26.7% Monocytes (%) (Auto) 7.7% Eosinophils (%) (Auto) 4.3% Basophils (%) (Auto) 0.6% Absolute Immature Granulocyte (auto 0.01T/MM3 Absolute Neutrophils (auto) 6.4T/MM3 Absolute Lymphocytes (auto) 2.8T/MM3 Absolute Monocytes (auto) 0.8T/MM3 Absolute Eosinophils (auto) 0.5T/MM3 Absolute Basophils (auto) 0.1T/MM3 Turbidity < 20 Sodium Level 143MEQ/L Potassium Level 3.8MEQ/L Chloride Level 107MEQ/L Carbon Dioxide Level 26MEQ/L Anion Gap 10MEQ/L Blood Urea Nitrogen 9.0MG/DL Creatinine 0.6MG/DL Glomerular Filtration Rate Calc 148 BUN/Creatinine Ratio 15RATIO Glucose Level 110MG/DL Calculated Osmolality 275MOSM/KG Calcium Level 8.8MG/DL Total Bilirubin 0.40MG/DL Icterus Index < 2 Aspartate Amino Transf (AST/SGOT) 15U/L Alanine Aminotransferase (ALT/SGPT) 34U/L Alkaline Phosphatase 73U/L Total Protein 7.2G/DL Albumin 3.9G/DL Globulin 3.3G/DL Albumin/Globulin Ratio 1.2RATIO Lipase 90U/L Chemistry Specimen Hemolysis < 15 Urine Collection Type Voided-not cc-midstr Urine Color Yellow Urine Turbidity Clear Urine pH 7.0 Urine Specific [place] 1.015 Urine Protein Negative Urine Glucose (UA) Negative Urine Ketones Negative Urine Blood Trace-lysed Urine Nitrite Negative Urine Bilirubin Negative Urine Urobilinogen 0.2EU/DL Urine Leukocyte Esterase Negative Urinalysis Comment Microscopic not ind. Medications Current ED Medications Sodium Chloride (Normal Saline IV) 1,000 ml @ 999 mls/hr Q1H1M ONCE IV Last administered on 07/10/16 01:13; Start 07/10/16 at 00:11; Stop 07/10/16 at 01:11 ; Status DC Hydromorphone HCl (Dilaudid) 0.5 mg O ONCE IV Last administered on 07/10/16 01:14; Start 07/10/16 at 00:15; Stop 07/10/16 at 00:16; Status DC Ondansetron HCl (Zofran) 4 mg O ONCE IV Last administered on 07/10/16 01:15; Start 07/10/16 at 00:15; Stop 07/10/16 at 00:16; Status DC Iohexol 1 bottle 1 bottle STK-MED ONCE .ROUTE ; Start 07/10/16 at 02:36; Stop at 02:37; Status DC Sodium Chloride (NS) 100 ml @ As Directed STK-MED ONCE .ROUTE ; Start 07/10/16 at 02:36; Stop 07/10/16 at 02:37; Status DC DESMOND MIKE MD Jul 10, 2016 00:15 DESMOND MIKE MD Jul 10, 2016 00:15
--- OUTSIDE RECORDS SUMMARY | 2016-07-10 00:34 | XMS REPORT | Continuity of Care Document ---
Author Author [facility] Organization [facility] Address Unknown Phone Unavailable Care Team Providers Care Antitank Assault Gunner Name Role Phone JENNY DEL ROSARIO MD Primary Care Physician [phone] Insurance Providers Payer Name Policy Number Subscriber Name Relationship [facility] Community Plan [id number] Tonya Hannon 17 Self Advance Directives Directive [...] F (96.8 - 99.1) Temperature (Calculated Celsius) 36.67698 degrees C (36.0 - 37.3) Temperature Source [...] Has specimen been collected/obtained? Y Urine Specific [place] June 02, 2008 7:45pm 1.010 L - [...] 2 0-7 Name: TONYA HANNON Unit #: [id number] : 1975 Sex: M Loc / Svc: ED DOS: 03/22/14 Signed Report #: [id number] DIAGNOSTIC IMAGING REPORT TYPE OF EXAM: CHEST, [...] completed 03/22/14 EMERGENCY DEPT VISIT completed 03/22/14 [id number]"INJECTION, HYDROMORPHONE, UP TO 4 MG" completed 03/22/14 Colonoscopy with polypectomy and biopsy completed 05/05/14 CHANTELL ROSE MD, FACS, CWS Encounters Encounter Location Date/Time Departed Emergency Room [facility] 03/22/14 7:21pm
--- OUTSIDE RECORDS SUMMARY | 2016-07-10 00:36 | XMS REPORT | Continuity of Care Document ---
Author Author [facility] Organization [facility] Address Unknown Phone Unavailable Allergies Active [...] twice a day as needed., 60 tabs HYDROcodone-acetaminophen([facility] 5 mg-325 mg oral tablet) 1 tabs [...] Oral 2 tabs, Oral, q6hr, [place] [facility] [place]: as needed for pain amLODIPine(amLODIPine 5 [...] Status Pt. Type Provider Facility Loc./Unit Complaint [id number] 05/12/2014 08:09:00 2014 18:00:00 DIS Outpatient Myrtle Sow MD [facility] [id number] 05/28/2016 05:16:48 Document Registration [id number] 11/18/2015 05:16:36 Document Registration [id number] 09/03/2015 05:17:25 Document Registration [id number] 06/10/2015 05:18:07 Document Registration [id number] 05/08/2015 05:17:02 Document Registration [id number] 02/18/2015 05:16:45 Document Registration [id number] 02/04/2015 14:29:18 Document Registration [id number] 02/04/2015 14:18:15 Document Registration [id number] 02/04/2015 14:08:07 Document Registration [id number] 02/04/2015 13:53:47 Document Registration [id number] 02/04/2015 13:46:15 Document Registration [id number] 02/04/2015 13:38:36 Document Registration [id number] 02/04/2015 12:39:18 Document Registration [id number] 02/04/2015 12:31:16 Document Registration [id number] 02/04/2015 12:24:00 Document Registration [id number] 02/04/2015 12:17:21 Document Registration [id number] 02/04/2015 11:43:41 Document Registration [id number] 02/04/2015 10:57:25 Document Registration [id number] 02/04/2015 10:41:25 Document Registration [id number] 02/04/2015 10:33:51 Document Registration [id number] 02/04/2015 10:28:21 Document Registration [id number] 02/04/2015 10:23:35 Document Registration [id number] 02/04/2015 10:12:52 Document Registration
--- OUTSIDE RECORDS SUMMARY | 2016-07-10 00:36 | XMS REPORT | Continuity of Care Document ---
Author Author [facility] Organization [facility] Address Unknown Phone Unavailable Care Team Providers Care Supervisor Electric Name Role Phone JENNIFER SAMUELS Primary Care Physician [phone] Insurance Providers Payer Name Policy Number Subscriber Name Relationship [facility] Community Plan [id number] Tonya Hannon 17 Self Problems Medical Problems [...] F (96.8 - 99.1) Temperature (Calculated Celsius) [phone] degrees C (36.0 - 37.3) Pulse Rate [...] Has specimen been collected/obtained? Y Urine Specific [place] June 02, 2008 7:45pm 1.010 L - [...] Encounters Encounter Location Date/Time Departed Emergency Room [facility] 03/22/14 7:21pm Recent Diagnosis
[2016-07-10 01:08] LABS: BASOPHILS # (AUTO) 0.1 T/MM3 (0-0.2); BASOPHILS % (AUTO) 0.6 % (0-2); EOSINOPHILS # (AUTO) 0.5 T/MM3 (0-0.5); EOSINOPHILS % (AUTO) 4.3 % (0-4); HCT - HEMATOCRIT 40.4 % (41-53); HGB - HEMOGLOBIN 13.8 GM/DL (13.5-17.5); IMMATURE GRANULOCYTE # (AUTO) 0.01 T/MM3 (0.00-0.03); IMMATURE GRANULOCYTE % (AUTO) 0.1 % (0.0-0.5); LYMPHOCYTES # (AUTO) 2.8 T/MM3 (1-4.8); LYMPHOCYTES % (AUTO) 26.7 % (23-45); MEAN CORPUSCULAR HGB 31.9 UUG (26-34); MEAN CORPUSCULAR HGB CONC(MCHC 34.2 GM/DL (31-37); MEAN CORPUSCULAR VOLUME 93.5 UM3 (80-100); MONOCYTES # (AUTO) 0.8 T/MM3 (0-0.8); MONOCYTES % (AUTO) 7.7 % (0-9.0); NEUTROPHILS #(AUTO)-ABSOLUTE 6.4 T/MM3 (1.8-7.7); NEUTROPHILS % (AUTO) 60.6 % (33-66); RED BLOOD COUNT 4.32 M/MM3 (4.50-5.90); WBC - WHITE BLOOD COUNT 10.5 T/MM3 (4.5-11.0)
[2016-07-10 01:16] LABS: ALBUMIN 3.9 G/DL (3.5-5.0); ALBUMIN/GLOBULIN RATIO 1.2 RATIO (1.1-2.2); ALKALINE PHOSPHATASE 73 U/L (38-126); ALT (SGPT) 34 U/L (21-72); ANION GAP 10 MEQ/L (5-15); AST (SGOT) 15 U/L (17-59); BUN/CREATININE RATIO 15 RATIO (6-26); CALCIUM 8.8 MG/DL (8.4-10.2); CHLORIDE 107 MEQ/L (98-107); CO2 - CARBON DIOXIDE 26 MEQ/L (22-30); CREATININE 0.6 MG/DL (0.8-1.5); GLOMERULAR FILTRATION RATE 148; GLUCOSE 110 MG/DL (75-110); LIPASE 90 U/L (23-300); POTASSIUM 3.8 MEQ/L (3.6-5); SODIUM 143 MEQ/L (134-144); TOTAL PROTEIN 7.2 G/DL (6.3-8.2)
[2016-07-10 02:27] LABS: BLOOD, URINE TRACE-LYSED (NEGATIVE); COLOR,URINE YELLOW (YELLOW); LEUKOCYTE ESTERASE ,URINE NEGATIVE (NEGATIVE); NITRITE,URINE NEGATIVE (NEGATIVE); UROBILINOGEN,URINE 0.2 EU/DL (NORMAL)
[2016-07-10] MEDS ORDERED: IOHEXOL 300 MG/ML 100ml INJECTION ONE (02:36)
[2016-07-10] MEDS ORDERED: NORMAL SALINE 100 ML ONE (02:36)
[2016-07-10 04:00] VITALS: BP 165/95; PULSE 75; RESP 20; TEMP 98.2; O2SAT 97
--- NOTE | 2016-07-10 04:00 | NUR ---
DEPART PT GIVEN DI FOR ABDOMINAL PAIN AND F/U. PT VERBALIZES UNDERSTANDING OF DI. QUESTIONS ASKED/ANSWERED - DENIES FURTHER QUESTIONS/NEEDS AT THIS TIME. IV SITE REMOVED. PERSONAL BELONGINGS GATHERED. PT AMBULATED/ESCORTED TO ED EXIT - GAIT STABLE, NO SIGN OF DISTRESS. FAMILY WAITING IN LOBBY.
--- NOTE | 2016-07-10 08:19 | DI ---
Indication: ITS.REASON: abdominal pain post appendicitis surgery, rule out abscess PROCEDURE: CT ABD/PELVIS W/CONTRAST ONLY: Encounter: Initial Comparison: CT abdomen and pelvis dated June 27, 2016 Technique: Axial CT images were performed through the abdomen and pelvis after the administration of intravenous contrast. Coronal and sagittal two-dimensional reformats. Automated Exposure Control and Iterative Reconstruction dose reducing techniques were utilized. Contrast: Omnipaque 300 100 mL Findings: The lung bases are clear. The liver appears normal. The gallbladder, spleen, pancreas, adrenal glands and kidneys are within normal limits. Bilateral small simple appearing renal cysts. No abdominal or pelvic lymphadenopathy. Post appendectomy changes. Mild wall thickening in the bladder. No rim-enhancing fluid collection or abscess appreciated. No evidence of a bowel obstruction. No free air seen. Bone windows are stable. Impression: Interval appendectomy without evidence of postoperative complication or abscess. There is a preliminary report by virtual radiologic. .
== END 2016-07-10 04:00 | disposition home or self-care (01) ==
LOC: ED 23:31
DX: R14.0 Abdominal distension (gaseous) (principal); R10.84 Generalized abdominal pain
CPT/HCPCS: 74177; 80053; 81003; 83690; 85025; 96361; 96374; 96375; 99284; J1170; J2405; J7030; J7050; Q9967